=== PATIENT | female | born 1955 | race Caucasian/White ===

== ENCOUNTER → 2018-01-31 06:53 | Outpatient (CLI) | payer OTHER, SELFPAY ==
--- NOTE | 2018-01-31 06:59 | ECHOD_ITS ---
Reason For Study: CHEST PAIN Procedure This was a 2D Doppler, Color Flow transthoracic echocardiogram. The exam was of poor technical quality due to body habitus. The study was technically difficult. Contrast injection was performed. Exam performed in department. Left Ventricle Based upon the 2D echocardiographic and contrast enhanced images obtained there appears to be grossly normal left ventricular size, wall motion, and systolic function. The estimated ejection fraction is 60 %. Right Ventricle Normal RV size. Normal systolic function. Atria Normal left atrium. Normal right atrium. No doppler evidence for ASD. Mitral Valve There is no mitral annular calcification. The mitral valve chordae are thickened and/or calcified. Trivial mitral valve insufficiency. Tricuspid Valve Normal tricuspid valve. Trivial tricuspid valve insufficiency. Right ventricular systolic pressure estimated to be 49 mmHg. Aortic Valve The aortic valve is not well visualized. Pulmonic Valve The pulmonic valve is not well visualized. Great Vessels Normal sized aortic root. Pericardium/Pleural No pericardial effusion. Medication Diluted definity 3ml given slow IV push to enhance endocardial definition. MMode/2D Measurements & Calculations LVIDd: 4.5 cm IVSd: 0.84 cm Ao root diam: 2.8 cm LVIDs: 3.1 cm LVPWd: 1.1 cm FS: 32.1 % LAV(MOD-bp): 44.6 ml EDV(MOD-sp4): 110.2 ml EDV(MOD-sp2): 78.1 ml LAV(MOD-bp) Indexed: 21.1 ml/m2 ESV(MOD-sp4): 36.8 ml EF(MOD-sp2): 55.9 % LAV(MOD-sp2): 58.6 ml EF(MOD-sp4): 66.6 % LAV(MOD-sp4): 34.1 ml SV(MOD-sp4): 73.4 ml SV(MOD-sp2): 43.7 ml LA A4 area: 15.2 cm2 RA A4 area: 14.9 cm2 Doppler Measurements & Calculations MV E max alejo: 87.3 cm/sec Lat Peak E' Alejo: 9.0 cm/sec Med Peak E' Alejo: 7.2 cm/sec MV A max alejo: 100.5 cm/sec E/E' lat: 9.7 E/E' med: 12.2 MV E/A: 0.87 Ao V2 max: 141.3 cm/sec LV V1 max: 111.7 cm/sec PA V2 max: 80.7 cm/sec Ao max P.0 mmHg LV V1 max P.0 mmHg TR max alejo: 338.3 cm/sec TR max P.8 mmHg Interpretation Summary The study was technically difficult. Contrast injection was performed. Based upon the 2D echocardiographic and contrast enhanced images obtained there appears to be grossly normal left ventricular size, wall motion, and systolic function. The estimated ejection fraction is 60 %. The mitral valve chordae are thickened and/or calcified. Trivial mitral valve insufficiency. Trivial tricuspid valve insufficiency. Right ventricular systolic pressure estimated to be 49 mmHg. Diastolic function: considered indeterminate. Ordering Physician: Rosaura Carnes Referring Physician: Rosaura Carnes Performed By: Rosey Jonas, SUZANNA, RVT
--- NOTE | 2018-01-31 14:11 | STRESSREP_ITS ---
Stress Test Report Date: 2017 Procedure: Pharmacologic stress nuclear imaging study Indications: Chest pain Consent: Per the patient Procedure: The patient underwent pharmacologic (Regadenoson) evaluation with a peak heart rate of 100 beats per minute (64 predicted maximal heart rate) and a peak blood pressure of 138/74 mmHg. The baseline ECG demonstrated normal sinus rhythm. The peak pharmacologic ECG demonstrated no obvious ECG changes. Were occasional PACs during recovery. There was no complaint of chest discomfort during pharmacologic infusion or recovery. The examination was discontinued secondary to completion of protocol. Impression: 1. Pharmacologic (Regadenoson) evaluation 2. Peak pharmacologic ECG with no obvious ECG changes. 3. There were occasional PACs during recovery 4. Nuclear images pending Myocardial perfusion imaging study: Technique: The patient was injected with 14.7 millicuries of technetium 99m Cardiolite and subsequently rest SPECT Cardiolite nuclear imaging was obtained in the horizontal long, vertical long, and short axis views. The patient underwent pharmacologic (Regadenoson) evaluation with a peak heart rate of 100 beats per minute (64 % percent predicted maximal heart rate) and a peak blood pressure of 138/74 mmHg. The patient was injected with 44.9 millicuries of technetium 99m Cardiolite and subsequently stress SPECT Cardiolite nuclear imaging was obtained in the horizontal long, vertical long, and short axis views. A gated Cardiolite study at peak stress was obtained. Interpretation: Rest and stress SPECT Cardiolite nuclear imaging status post realignment, normalization, and attenuation correction demonstrate at rest the appearance of diminished tracer uptake in portions of the anterior, anteroseptal, and anterolateral segments which appear to improve and/or normalize following stress. There is end systolic thickening and brightening. The gated Cardiolite study demonstrates myocardial thickening and inward wall motion. The reported LVEF is 46 %. Impression: 1. Rest and stress SPECT Cardiolite nuclear imaging demonstrating resting myocardial perfusion changes which appear to improve and/or normalize following stress appearing compatible with shifting soft tissue attenuation/artifact with no myocardial perfusion changes consider diagnostic for associated stress- induced myocardial ischemia or previous myocardial injury/infarction. 2. The gated Cardiolite study reports an LVEF of 46 %. This note was generated with [employer] software. It may contain incorrect words, spelling, and punctuation that were not noted in checking the note before signing.
== END ==
LOC: CVS 06:53
PROVIDERS: Family Provider Internal Medicine; PCP Internal Medicine; Visit Provider Internal Medicine
DX: R07.9 Chest pain, unspecified (principal)
CPT/HCPCS: 78452; 93017; 93306; A9500; Q9957; A4216; C8929; J2785

== ENCOUNTER → 2018-09-20 08:32 | Outpatient (CLI) | payer MEDICARE, BC, SELFPAY ==
--- NOTE | 2018-09-20 08:42 | RAD_ITS ---
STUDY: X-RAY CHEST REASON FOR EXAM: Female, 63 years old. Shortness of breath. TECHNIQUE: Frontal and lateral views of the chest. COMPARISON: None. FINDINGS: There is an area of platelike atelectasis overlying the left upper lobe. Otherwise, the are clear and expanded. There is no demonstrated pleural abnormality. Normal size heart. Normal mediastinum and gila. Normal visualized pulmonary arteries. Normal visualized aortic arch and descending thoracic aorta. There are diffuse degenerative changes of the visualized thoracic spine. Normal visualized ribs, clavicles, and shoulders. There is no demonstrated abnormality of the visualized soft tissue structures of the upper abdomen. RAD/Chest PA and Lateral IMPRESSION: Focus of platelike atelectasis in the left upper lobe. No evidence for acute cardiopulmonary pathology. Electronically Signed: Dwight Dawkins MD at 0:45 EST , Service support ,
--- NOTE | 2018-09-20 09:02 | US_ITS ---
STUDY: THYROID ULTRASOUND REASON FOR EXAM: Female, 63 years old. Previous thyroidectomy, physician concerned only partial thyroidectomy performed. TECHNIQUE: Ultrasound evaluation of the thyroid was performed with real-time and static mackay-scale imaging. COMPARISON: None. FINDINGS: Patient reports previous thyroidectomy in 2006. There is no sonographic evidence of residual thyroid tissue in either half of the neck. No adenopathy, soft tissue mass or fluid collection. US/Thyroid IMPRESSION: No suspicious sonographic findings, no sonographic evidence of residual thyroid tissue Electronically Signed: Cornell Vizcarra MD at 16:47 EST , Service support ,
== END ==
PROVIDERS: Family Provider Internal Medicine; PCP Internal Medicine; Referring Provider Internal Medicine; Visit Provider Internal Medicine
DX: I27.20 Pulmonary hypertension, unspecified (principal); E04.1 Nontoxic single thyroid nodule; R06.09 Other forms of dyspnea
CPT/HCPCS: 71046; 76536

== ENCOUNTER → 2020-08-19 09:58 | Outpatient (CLI) | payer MEDICARE, BC, SELFPAY ==
--- NOTE | 2020-08-19 10:00 | BI_ITS ---
MAMMOGRAPHY - BILATERAL SCREENING REASON FOR EXAM: Female, 64 years old. Routine annual screening examination. PERTINENT HISTORY: Non-contributory. TECHNIQUE: Digital bilateral breast dina (3D mammographic acquisition) in the CC and MLO projections. 2-D mediolateral oblique (MLO) and craniocaudad (CC) views of both breasts were obtained. CAD: Full Field Digital Mammography with Computer Added Detection was performed. COMPARISON: None. Baseline examination. FINDINGS: Breast Composition: The breasts are heterogeneously dense, which may obscure small masses. There are no dominant masses or suspicious calcifications. Benign appearing bilateral axillary lymph nodes. No other significant abnormalities are identified. BI/SCREEN MAMM (CAD) W/DINA BILAT IMPRESSION: Negative screening mammogram. Yearly followup mammogram recommended. (A) ASSESSMENT CATEGORY: BIRADS Category 2: Benign. A letter regarding these results will be sent to the patient by the facility within 30 days. Approximately 10% of breast cancers are not detected by mammography. A normal mammogram should not delay biopsy of a clinically suspicious abnormality. [id number] Electronically Signed: Arnold Hernandez, at 11:59 EST , Service support ,
== END ==
PROVIDERS: PCP Internal Medicine; Referring Provider Internal Medicine; Visit Provider Internal Medicine
DX: Z12.31 Encounter for screening mammogram for malignant neoplasm of breast (principal)
CPT/HCPCS: 77063; 77067

== ENCOUNTER → 2021-05-19 14:16 | Outpatient (CLI) | payer MEDICARE, BC, SELFPAY ==
--- NOTE | 2021-05-19 14:20 | VDLE_ITS ---
Reason For Study: Calf pain Procedure LEFT This is a venous duplex using B-mode, color GSV is normal. flow and spectral Doppler. CFV is compressible, spontaneous, phasic, Exam performed in department. competent, and demonstrates normal A preliminary report was called and/or faxed augmentation. to [facility]. FV is compressible, spontaneous, phasic, competent and demonstrates normal augmentation. POP V is compressible, spontaneous, phasic, competent and demonstrates normal augmentation. T/P Trunk is compressible. PTV is compressible. LT PerV is compressible. VL/Venous Duplex US, Unilateral Interpretation Summary Deep veins of the left lower extremity are patent and compressible segmentally. There is no evidence of left lower extremity deep vein thrombosis. Valvular competence appears intac t within the proximal deep venous system on the left . The left great saphenous vein appears patent a nd compressible segmentally. Ordering Physician: Manuela Kapoor Referring Physician: Rosaura Carnes M.D. Performed By: Ca Hopper RVT
--- NOTE | 2021-05-19 14:40 | RAD_ITS ---
INDICATION: KNEE PAIN,L EXAMINATION/TECHNIQUE: X-RAY - LEFT XR Knee Complete 4 Views or More 4 VIEWS COMPARISON: 06/04/2011.. FINDINGS: Moderate narrowing of the joint spaces is visualized. Mild degenerative bone changes are seen, no evidence of cortical irregularity or lucency to suggest a fracture, no evidence of lytic or sclerotic bone lesion is seen. No evidence of subluxation or dislocation. Unremarkable alignment of the patella bone within the trochlear sulcus. Ratio of patellar tendon/patellar length is 1.16 which is within normal limits. No evidence of suprapatellar effusion, no abnormal density in the overlying soft tissues. No radiopaque foreign body seen. RAD/Knee 4 or More Views IMPRESSION: Degenerative changes, no acute osseous abnormality is seen Electronically Signed: Alvin Lea MD at 8:33 EDT Tel , Service support ,
== END ==
PROVIDERS: PCP Internal Medicine; Referring Provider Nurse Practitioner; Visit Provider Nurse Practitioner
DX: M79.89 Other specified soft tissue disorders (principal); M79.669 Pain in unspecified lower leg
CPT/HCPCS: 73564; 93971

== ENCOUNTER 2021-10-29 07:49 | Outpatient (CLI) | payer MEDICARE, BC, SELFPAY ==
--- NOTE | 2021-10-29 13:17 | PFTCOMP_ITS ---
COMPLETE PULMONARY FUNCTION TEST INTERPRETATION Brief HPI: Patient is a 66 year old female, currently under the care of Dr. Carnes, who presents to [facility] for complete pulmonary function tests secondary to diagnosis of dyspnea. Respiratory therapist reports good effort and reproducible results. Interpretation: Forced expiration spirometry shows no large airways obstructive ventilatory defect with an FEV1 of 40% predicted. There is no significant bronchodilator response by strict ATS criteria. Spirograms are of good quality and plateau normally. The respiratory flow volume loop shows a normal pattern. Lung volumes by body plethysmography show a decreased total lung capacity at 2.43 L, 57% predicted. FRC and RV are elevated out of proportion. Lung volume measurements are consistent with air-trapping. Diffusion capacity by carbon monoxide is decreased at 49% predicted. The airway resistance is elevated. No previous pulmonary function tests were available for review. Impression: Predominantly severe restrictive ventilatory defect with some stigmata of small airways disease and a symmetric reduction in diffusion capacity
== END 2021-10-29 23:59 | disposition home or self-care (01) ==
LOC: PSN 07:51
PROVIDERS: PCP Internal Medicine; Referring Provider Internal Medicine; Visit Provider Internal Medicine
DX: R06.02 Shortness of breath (principal)
CPT/HCPCS: 94060; 94726; 94729

== ENCOUNTER 2021-10-30 08:18 | Outpatient (CLI) | payer MEDICARE, BC, SELFPAY ==
--- NOTE | 2021-10-30 08:40 | RAD_ITS ---
STUDY: X-RAY CHEST REASON FOR EXAM: Female, 66 years old. SOB TECHNIQUE: PA and lateral views of the chest. COMPARISON: 09/20/2018 FINDINGS: Opacification throughout the majority of the left lung consistent with left upper lobe atelectasis. There is no demonstrated pleural abnormality. Normal size heart. Enlarged hilum of the left lung worrisome for left hilar mass mainly bronchogenic carcinoma. Normal visualized pulmonary arteries. Normal visualized aortic arch and descending thoracic aorta. Normal visualized thoracic spine. Normal visualized ribs, clavicles, and shoulders. There is no demonstrated abnormality of the visualized soft tissue structures of the upper abdomen. RAD/Chest PA and Lateral IMPRESSION: Suspect left hilar bronchial carcinoma with lingular postobstructive atelectasis. Correlation with CT of the chest with contrast is recommended. Electronically Signed: Mark Cutler MD at 9:00 EDT ,
== END 2021-10-30 23:59 | disposition home or self-care (01) ==
PROVIDERS: PCP Internal Medicine; Referring Provider Internal Medicine; Visit Provider Internal Medicine
DX: R06.02 Shortness of breath (principal)
CPT/HCPCS: 71046

== ENCOUNTER 2021-11-06 09:28 | Inpatient (IN) | payer MEDICARE, BC, SELFPAY ==
[2021-11-06] VITALS (11 sets, daily range): BP systolic 121–147; BP diastolic 46–85; PULSE 87–101; RESP 16–26; TEMP 35.6–36.8; O2SAT 77–95; BMI 43.6; BMI 45.8
--- NOTE | 2021-11-06 10:13 | EKG12_ITS ---
Test Reason : TACHYCARDIA Blood Pressure : / mmHG Vent. Rate : 096 BPM Atrial Rate : 096 BPM P-R Int : 168 ms QRS Dur : 074 ms QT Int : 362 ms P-R-T Axes : 068 088 066 degrees QTc Int : 457 ms Normal sinus rhythm Normal ECG Confirmed by REENA RAY, URSULA ([id number]), general expeditor PAULO MCINTOSH ([id number]) on 11/10/2021 11:00:47 AM Referred By: CLARKE Confirmed By:URSULA VALLES MD
--- NOTE | 2021-11-06 10:13 | CT_ITS ---
STUDY: CTA CHEST REASON FOR EXAM: Female, 66 years old. Chest pain. Possible left hilar mass and volume loss in the left hemithorax as compared to prior chest radiograph dated 10/30/2021. RADIATION DOSAGE (If Supplied By Facility): CTDIvol = ( 12.65 ) mGy, DLP = ( 538.50 ) mGycm TECHNIQUE: The examination was performed with the intravenous administration of IV 100mL Isovue-[id number]. Post-processing of the angiographic images was performed, with multiplanar reformation and 3D reconstruction. Individualized dose optimization techniques were used for this CT. COMPARISON: None. FINDINGS: Normal enhancement of the main pulmonary artery and right and left pulmonary arteries. Normal enhancement of the bilateral peripheral pulmonary arteries. There is no demonstrated pulmonary embolism. There is atherosclerotic calcification of the aortic arch with tortuosity. There is no demonstrated aortic dissection. There are calcifications of the coronary arteries. Normal mediastinum. 3.8 cm soft tissue mass in the left hilum. Normal visualized trachea and bronchi. There is collapse of the left upper lobe. There is evidence of a left hilar mass with narrowing of the left upper lobe bronchus with postobstructive pneumonitis in the left upper lobe. Small left pleural effusion. Normal chest wall structures. There are degenerative changes of thoracic spine. There is a 3.3 cm x 3.1 cm hypodense mass in the right adrenal gland. 1.2 cm nodule in the crux of the left adrenal gland. CT/CTA Chest W/WO Contrast IMPRESSION: Left hilar mass with collapse of the left upper lobe. A primary bronchogenic carcinoma should be ruled out. Small left pleural effusion. Bilateral adrenal masses more prominent on the right side. Electronically Signed: Arnold Hernandez MD at 13:01 EDT ,
--- NOTE | 2021-11-06 10:16 | EDS_ITS ---
HPI History of Present Illness Chief Complaint: Shortness of Breath Narrative Narrative: 66-year-old female presenting with shortness of breath. She is found to be hypoxic in the 70s on arrival. She is placed on 2 L via nasal cannula. She states that she is been feeling this short of breath for about a week or 2. She does have a little bit of a cough. No fever or chills. Patient states he has a history of smoking but has not smoked since this started. She does describe some sharp retrosternal chest pain that sometimes radiates to the back. No history of DVT/PE. PE Risk Factors: Negative for Cancer, Prior DVT or PE, Recent immobilization, Recent surgery and Recent travel [facility] Medical History (Updated 11/06/21 @ 13:[address] 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 Tobacco abuse Type II diabetes mellitus Home Medications albuterol sulfate 90 mcg/actuation aerosol inhaler 2 puff INHALATION Q4H PRN 04/06/18 [History Last Taken 11/05/21] aspirin 81 mg tablet,delayed release 81 mg PO DAILY 04/06/18 [History Last Taken 11/05/21] atorvastatin 80 mg tablet 80 mg PO DAILY 04/06/18 [History Last Taken 11/05/21] escitalopram oxalate 20 mg tablet 20 mg PO DAILY 04/06/18 [History Last Taken 11/05/21] fluticasone propionate 50 mcg/actuation nasal spray,suspension 1 spray INTRAN KEY DAILY 04/06/18 [History Last Taken 11/05/21] glimepiride 4 mg tablet 4 mg PO QAM 04/06/18 [History Last Taken 11/05/21] levothyroxine 175 mcg tablet 175 mcg PO SUMOTUWETHFR 04/06/18 [History Last Taken 11/05/21] oxybutynin chloride 15 mg tablet,extended release 24 hr 15 mg PO DAILY 04/06/18 [History Last Taken 11/05/21] lisinopril 10 mg-hydrochlorothiazide 12.5 mg tablet 1 tab PO BID tab 04/13/18 [History Last Taken 11/05/21] levothyroxine 350 mcg PO SA 11/06/21 [History Last Taken 10/31/21] metformin 500 mg PO DAILY 11/06/21 [History Last Taken 11/05/21] Allergy/AdvReac Type Severity Reaction Status Date / Time loratadine [From Claritin] AdvReac Severe Nausea Verified 11/06/21 09:29 acetaminophen AdvReac Unknown Unknown Verified 11/06/21 09:29 [From Darvocet-N 100] celecoxib [From Celebrex] AdvReac Unknown Unknown Verified 11/06/21 09:29 meperidine [From Demerol] AdvReac Unknown Unknown Verified 11/06/21 09:29 morphine AdvReac Unknown Unknown Verified 11/06/21 09:29 Penicillins AdvReac Unknown Unknown Verified 11/06/21 09:29 propoxyphene AdvReac Unknown Unknown Verified 11/06/21 09:29 [From Darvocet-N 100] Family History Father Heart disease Sister Heart disease Surgical History History of cholecystectomy History of splenectomy History of thyroidectomy, total History of total hysterectomy Hx of appendectomy Social History Smoking Status: Current every day smoker tobacco type: cigarettes alcohol intake: current details: rare substance use type: does not use ROS ROS ED Constitutional Constitutional ED: Denies chills or fever(s) Eyes Eyes: Denies blurry vision or change in vision ENT ENT ED: Denies rhinorrhea or sore throat Cardiovascular Cardiovascular: Reports chest pain, palpitations and racing heartbeat Respiratory/Chest Respiratory/Chest: Reports cough, dyspnea and dyspnea on exertion Gastrointestinal Gastrointestinal: Denies abdominal pain, nausea or vomiting Genitourinary Genitourinary ED: Denies dysuria or hematuria Musculoskeletal Musculoskeletal: Denies arthralgias or myalgias Integumentary Denies rash Neurologic Neurologic: Denies headache(s) or paresthesias Psychiatric Psychiatric: Denies anxiety or depression EXAM Physical Exam Const Vital Signs: 11/06/21 09:32 11/06/21 09:36 11/06/21 10:13 Temperature 96.1 F L Temperature Source Temporal Pulse Rate 101 H Respiratory Rate 26 H Respiratory Effort Respiratory Depth Respiratory Pattern Blood Pressure 147/85 H Blood Pressure Mean 105 Pulse Ox 77 91 92 Oxygen Delivery Method Room Air Nasal Cannula Nasal Cannula Oxygen Flow Rate (L/min) 3 3 11/06/21 10:28 11/06/21 10:36 11/06/21 11:46 Temperature 98.0 F Temperature Source Oral Pulse Rate 87 89 Respiratory Rate 22 H 22 H Respiratory Effort Normal Non-Labored Respiratory Depth Normal Respiratory Pattern Normal Normal Blood Pressure 131/61 H Blood Pressure Mean 84 Pulse Ox 92 Oxygen Delivery Method Nasal Cannula Nasal Cannula Oxygen Flow Rate (L/min) 3 3 11/06/21 13:00 Temperature 98.0 F Temperature Source Oral Pulse Rate 88 Respiratory Rate 24 H Respiratory Effort Respiratory Depth Respiratory Pattern Blood Pressure 121/46 H Blood Pressure Mean 71 Pulse Ox 93 Oxygen Delivery Method Nasal Cannula Oxygen Flow Rate (L/min) 4 Positive obese General Appearance ED: NAD; Negative for pallor Nutritional Appearance: obese HEENT Reports moist mucous membranes atraumatic Eyes PERRL and EOMs intact bilaterally General Eye ED: Negative for pale conjunctiva or scleral icterus Neck no lymphadenopathy and supple Resp Auscultation: wheezes expiratory wheezes Cardio regular rhythm Rate: tachycardic GI non-tender and non-distended Palpation: soft Back/Spine normal to inspection Extremity normal to inspection Neuro oriented x3 and CN's II-XII intact bilaterally Sensorium / Orientation: alert Motor Exam: strength 5/5 throughout and general weakness Psych mental status grossly normal Thought Process: normal thought process Skin General Skin Exam: Negative for jaundice or pallor MDM MDM MDM Narrative Medical decision making narrative: Patient seen and evaluated on arrival. She is hypoxic at 77 and placed on 2 L via nasal cannula. She is currently 91 to 93% on room air. She feels improved. Patient does not usually have to wear home O2. She is wheezing mildly but also complaining of sharp chest pain that radiates to the back at times. EKG obtained. Shows a normal sinus rhythm with a ventricular rate of 96 bpm without sign of ischemic change. On my interpretation. I reviewed her chest x-ray that she had last week which had concerns for carcinoma, and specifically left hilar bronchial carcinoma with lingular postobstructive atelectasis. Given this I will obtain a CTA. Blood work obtained and shows a leukocytosis of 15.8. Patient does appear to always have a high white blood cell count. Hemoglobin and hematocrit are stable. Renal function electrolytes within normal limits. BNP normal at 20. High- sensitivity troponin is 4. CTA of the chest was obtained and shows a left hilar mass with collapse of the left upper lobe. There are drain masses bilaterally as well as a left pleural effusion. Given the patient is hypoxic and requiring oxygen she will need to be admitted to the hospital. Discussed with the hospitalist for admission. Patient transported to the medical floor in stable condition. Impression: 1. Hypoxic respiratory failure 2. Chest pain 3. Lung mass 4. Left pleural effusion 5. Adrenal masses bilaterally Lab Data Attestation: I reviewed the patient's lab results. Labs: Laboratory Results - last 24 hr 11/06/21 11/06/21 11/06/21 11:20 11:20 11:20 WBC 15.8 H RBC 5.40 Hgb 15.7 H Hct 48.2 H MCV 89.3 MCH 29.1 MCHC 32.6 RDW Std Deviation 58.2 H RDW Coeff of Kathy 18.4 H Plt Count 361 MPV 10.1 Immature Gran % (Auto) 0.400 Neut % (Auto) 58.0 Lymph % (Auto) 28.5 [place] % (Auto) 11.4 H Eos % (Auto) 0.9 Baso % (Auto) 0.8 Absolute Neuts (auto) 9.2 H Absolute Lymphs (auto) 4.51 Nucleated RBC % 0 Platelet Estimate ADEQUATE RBC Morphology NORM C+C Sodium 139 Potassium 4.4 Chloride 103 Carbon Dioxide 35.0 H Anion Gap 1 L BUN 13 Creatinine 0.52 L Estim Creat Clear Calc 38.68 Est GFR (MDRD) Af Amer 149 Est GFR (MDRD) Non-Af 124 BUN/Creatinine Ratio 24.8 H Glucose 130 H Calcium 8.7 Troponin I High Sens 6 B-Natriuretic Peptide 20.7 11/06/21 12:40 WBC RBC Hgb Hct MCV MCH MCHC RDW Std Deviation RDW Coeff of Kathy Plt Count MPV Immature Gran % (Auto) Neut % (Auto) Lymph % (Auto) [place] % (Auto) Eos % (Auto) Baso % (Auto) Absolute Neuts (auto) Absolute Lymphs (auto) Nucleated RBC % Platelet Estimate RBC Morphology Sodium Potassium Chloride Carbon Dioxide Anion Gap BUN Creatinine Estim Creat Clear Calc Est GFR (MDRD) Af Amer Est GFR (MDRD) Non-Af BUN/Creatinine Ratio Glucose Calcium Troponin I High Sens 4 B-Natriuretic Peptide Radiography Diagnostic Testing: Clinical Impression(s) from Imaging Studies Chest CTA 11/06/21 10:13 IMPRESSION: Left hilar mass with collapse of the left upper lobe. A primary bronchogenic carcinoma should be ruled out. Small left pleural effusion. Bilateral adrenal masses more prominent on the right side. Electronically Signed: Arnold Hernandez MD at 13:01 EDT , Discharge Plan Triage Chief Complaint: Shortness of Breath ED Provider: William Lepe Dx/Rx/DC Orders Prescriptions: No Action lisinopril-hydrochlorothiazide 10-12.5 mg tablet 1 tab PO BID RF: 0 glimepiride [Amaryl] 4 mg tablet 4 mg PO QAM RF: 0 fluticasone propionate [Allergy Relief (fluticasone)] 50 mcg/actuation spray,suspension 1 spray INTRANASAL DAILY RF: 0 escitalopram oxalate [Lexapro] 20 mg tablet 20 mg PO DAILY RF: 0 levothyroxine 175 mcg tablet 175 mcg PO SUMOTUWETHFR RF: 0 oxybutynin chloride 15 mg tablet extended release 24hr 15 mg PO DAILY RF: 0 atorvastatin 80 mg tablet 80 mg PO DAILY RF: 0 aspirin 81 mg tablet,delayed release (DR/EC) 81 mg PO DAILY RF: 0 albuterol sulfate [Proventil HFA] 90 mcg/actuation HFA aerosol inhaler 2 puff INHALATION Q4H PRN (Reason: SOB) RF: 0 metformin 500 mg tablet 500 mg PO DAILY RF: 0 levothyroxine 175 mcg tablet 350 mcg PO SA RF: 0 Primary Care Provider: Rosaura Carnes
[2021-11-06] MEDS: Ipratropium/Albuterol Sulfate 3 ML AMPUL.NEB INHALATION (10:27)
[2021-11-06] MEDS: Albuterol 2.5 MG/3 ML VIAL.NEB. INHALATION (10:28)
[2021-11-06 11:36] LABS: Absolute Lymphocyte Count 4.51 X10^3/uL (0.83-4.51); Absolute Neutrophil Count 9.2 X10^3/uL (2.0-7.7); Basophil# 0.12 X10^3/uL; Basophil% 0.8 % (0-1); Eosinophil# 0.14 X10^3/uL; Eosinophils% 0.9 % (0-5); Hematocrit 48.2 % (37-47); Hemoglobin 15.7 g/dL (12.0-15.0); Lymphocyte # 4.51 X10^3/ul (0.83-4.51); Lymphocyte % 28.5 % (19-41); Mean Corp Hgb Conc 32.6 g/dL (32-36); Mean Corpuscular Hgb 29.1 pg (27.0-32.0); Mean Corpuscular Volume 89.3 fL (81-99); Mean Platelet Vol. 10.1 fl (6.2-12.0); Monocyte# 1.81 X10^3/uL; Monocyte% 11.4 % (0-10); NRBC Flagged by Analyzer 0 % (0-5); Neutrophil # 9.17 X10^3/uL (2.7-7.7); POSITIVE DIFFERENTIAL YES; Platelet Count 361 K/mm3 (150-450); RBC Distribution Width CV 18.4 % (11.6-14.6); RBC Distribution Width SD 58.2 fl (35.1-43.9); White Blood Count 15.8 K/mm3 (4.4-11.0)
[2021-11-06 11:37] LABS: Differential Indicated SCAN CRITERIA MET
[2021-11-06] MEDS: MethylPREDNISolone 125 MG/2 ML Vial IV (11:46)
[2021-11-06 11:53] LABS: Anion Gap 1 (5-15); BUN 13 mg/dL (7-18); BUN/Creat Ratio 24.8 RATIO (10-20); Calcium,Total 8.7 mg/dL (8.5-10.1); Chloride 103 mmol/L (98-107); Creatinine, Serum 0.52 mg/dL (0.55-1.02); EST Glomerular Filtration Rate 124 mL/min (>60); Est Glom Filt Rate - Afr Amer 149 mL/min (>60); Estimated Creatinine Clearance 38.68 ml/min; Glucose 130 mg/dL (74-106); Potassium 4.4 mmol/L (3.5-5.1); Sodium Level 139 mmol/L (136-145); Troponin-I HS 6 pg/mL (3.0-54.0)
[2021-11-06 11:54] LABS: Platelet Estimate ADEQUATE (ADEQ); Red Cell Morphology NORM C+C NORMAL (NORM C&C)
[2021-11-06 12:16] LABS: BNP,B-Type NATRIURETIC PEPTIDE 20.7 pg/mL (0-100)
[2021-11-06 13:04] LABS: Troponin-I HS 4 pg/mL (3.0-54.0)
--- NOTE | 2021-11-06 13:32 | HP.PCM.HOS_ITS ---
HPI - General General Date of Admission: 11/06/21 HPI Narrative YING AGUILAR, is a 66 F with a PMH as outlined who presents via the ED on 11/06/2021 with a complaint of shortness of breath which had been going on for ~ 1-2 weeks. She was found to be hypoxic in the 70s by the EMS. She had chest pain which was sharp and radiated to her back. She denied any recent travels or immobilisation or history of PE; she had a cxr done 1 week ago which showed a right hilar mass. Review of systems is otherwise negative. VItals in the ED were BP of 121/46, NH of 88, RR of 24 and temp of 98F. She was saturating at 93% on 2L of oxygen. CBC showed Hb of 15.7, wbc of 15.8, platelets of 361. BMP was largely unremarkable. CTA of the chest showed left hilar mass with collapse of hte left upper lobe, with small left pleural effusion concerning for primary bronchogenic carcinoma; bilateral adrenal masses were also more prominent on the right side. She is being admitted to be managed for acute hypoxic respiratory failure due to probable lung cancer. [facility] Medical History (Updated 11/06/21 @ 14:23 by Zoie Vieira) Abnormal echocardiogram Benign essential hypertension Cardiac murmur Chronic osteoarthritis CVA (cerebral vascular accident) Fibromyalgia History of asthma Hyperlipidemia Hypothyroidism Kidney stones Leukemia in remission Nontoxic uninodular goiter Sleep apnea Smoker Tobacco abuse Type II diabetes mellitus Home Medications albuterol sulfate 90 mcg/actuation aerosol inhaler 2 puff INHALATION Q4H PRN 04/06/18 [History Last Taken 11/05/21] aspirin 81 mg tablet,delayed release 81 mg PO DAILY 04/06/18 [History Last Taken 11/05/21] atorvastatin 80 mg tablet 80 mg PO DAILY 04/06/18 [History Last Taken 11/05/21] escitalopram oxalate 20 mg tablet 20 mg PO DAILY 04/06/18 [History Last Taken 11/05/21] fluticasone propionate 50 mcg/actuation nasal spray,suspension 1 spray I NTRANASAL DAILY 04/06/18 [History Last Taken 11/05/21] glimepiride 4 mg tablet 4 mg PO QAM 04/06/18 [History Last Taken 11/05/21] levothyroxine 175 mcg tablet 175 mcg PO SUMOTUWETHFR 04/06/18 [History Last Taken 11/05/21] oxybutynin chloride 15 mg tablet,extended release 24 hr 15 mg PO DAILY 04/06/18 [History Last Taken 11/05/21] lisinopril 10 mg-hydrochlorothiazide 12.5 mg tablet 1 tab PO BID tab 04/13/18 [History Last Taken 11/05/21] levothyroxine 350 mcg PO SA 11/06/21 [History Last Taken 10/31/21] metformin 500 mg PO DAILY 11/06/21 [History Last Taken 11/05/21] Allergy/AdvReac Type Severity Reaction Status Date / Time loratadine [From Claritin] AdvReac Severe Nausea Verified 11/06/21 09:29 acetaminophen AdvReac Unknown Unknown Verified 11/06/21 09:29 [From Darvocet-N 100] celecoxib [From Celebrex] AdvReac Unknown Unknown Verified 11/06/21 09:29 meperidine [From Demerol] AdvReac Unknown Unknown Verified 11/06/21 09:29 morphine AdvReac Unknown Unknown Verified 11/06/21 09:29 Penicillins AdvReac Unknown Unknown Verified 11/06/21 09:29 propoxyphene AdvReac Unknown Unknown Verified 11/06/21 09:29 [From Darvocet-N 100] Family History Father Heart disease Sister Heart disease Surgical History History of cholecystectomy History of splenectomy History of thyroidectomy, total History of total hysterectomy Hx of appendectomy Social History Smoking Status: Current every day smoker tobacco type: cigarettes alcohol intake: current details: rare substance use type: does not use ROS Constitutional Constitutional: Denies anorexia, chills, fatigue, fever(s), malaise or weakness Eyes Eyes: Denies change in vision ENT HEENT: Denies dysphagia, headache(s), nasal congestion or nasal discharge Cardiovascular Cardiovascular: Reports dyspnea on exertion; Denies chest pain, edema, lightheadedness, orthopnea, palpitations, paroxysmal nocturnal dyspnea or rapid heart rate Respiratory/Chest Respiratory/Chest: Reports dyspnea, shortness of breath at rest and shortness of breath with exertion; Denies cough, excessive phlegm production, hemoptysis, productive cough or wheezing Gastrointestinal Gastrointestinal: Denies abdominal pain, dyspepsia, nausea or vomiting Genitourinary Genitourinary: Denies burning urination, dysuria or urinary frequency Musculoskeletal Musculoskeletal: Denies arthralgias, joint pain or joint swelling Neurologic Neurologic: Denies confusion, dizziness, focal weakness, headache(s) or numbness Psychiatric Psychiatric: Denies anxiety or depression Endocrine Endocrinology: Denies change in body appearance Hematologic/Lymphatic Hematologic/Lymphatic: Denies anemia Vital Signs Vital Signs Vital Signs: 11/06/21 09:32 11/06/21 09:36 11/06/21 10:13 Temperature 96.1 F L Temperature Source Temporal Pulse Rate 101 H Respiratory Rate 26 H Respiratory Effort Respiratory Depth Respiratory Pattern Blood Pressure 147/85 H Blood Pressure Mean 105 Pulse Ox 77 91 92 Oxygen Delivery Method Room Air Nasal Cannula Nasal Cannula Oxygen Flow Rate (L/min) 3 3 11/06/21 10:28 11/06/21 10:36 11/06/21 11:46 Temperature 98.0 F Temperature Source Oral Pulse Rate 87 89 Respiratory Rate 22 H 22 H Respiratory Effort Normal Non-Labored Respiratory Depth Normal Respiratory Pattern Normal Normal Blood Pressure 131/61 H Blood Pressure Mean 84 Pulse Ox 92 Oxygen Delivery Method Nasal Cannula Nasal Cannula Oxygen Flow Rate (L/min) 3 3 11/06/21 13:00 Temperature 98.0 F Temperature Source Oral Pulse Rate 88 Respiratory Rate 24 H Respiratory Effort Respiratory Depth Respiratory Pattern Blood Pressure 121/46 H Blood Pressure Mean 71 Pulse Ox 93 Oxygen Delivery Method Nasal Cannula Oxygen Flow Rate (L/min) 4 Weight Weight: 223 lb 5.252 oz Body Mass Index (BMI) 43.6 Physical Exam Const alert, oriented x3 and no apparent distress General Appearance: cooperative HEENT normocephalic, head/scalp atraumatic and hearing grossly normal bilaterally Eyes PERRL, EOMs intact bilaterally and conjunctivae normal Neck no lymphadenopathy, supple and no JVD Resp Resp Narrative: mildly diminished breath sounds bibasally, no wheezes or crackles. On 4l of oxygen Cardio regular rate, regular rhythm, S1 normal heart sound, S2 normal heart sound and no murmurs GI normal to inspection, nondistended, normoactive bowel sounds, soft to palpation, non-tender and non-distended Extremity normal to inspection, full ROM and no clubbing, cyanosis or edema Peripheral Pulses: Yes pulses 2+ throughout Skin no rashes or lesions noted Neuro oriented x3 and CN's II-XII intact bilaterally Sensorium / Orientation: awake and alert Psych affect normal Results Lab / Micro Data Result Diagrams: 11/06/21 11:20 11/06/21 11:20 Labs: Laboratory Results - last 24 hr 11/06/21 11:20: WBC 15.8 H, RBC 5.40, Hgb 15.7 H, Hct 48.2 H, MCV 89.3, MCH 29.1, MCHC 32.6, RDW Std Deviation 58.2 H, RDW Coeff of Kathy 18.4 H, Plt Count 361, MPV 10.1, Immature Gran % (Auto) 0.400, Neut % (Auto) 58.0, Lymph % (Auto) 28.5, [place] % (Auto) 11.4 H, Eos % (Auto) 0.9, Baso % (Auto) 0.8, Absolute Neuts (auto) 9.2 H, Absolute Lymphs (auto) 4.51, Nucleated RBC % 0, Platelet Estimate ADEQUATE, RBC Morphology NORM C+C 11/06/21 11:20: Sodium 139, Potassium 4.4, Chloride 103, Carbon Dioxide 35.0 H, Anion Gap 1 L, BUN 13, Creatinine 0.52 L, Estim Creat Clear Calc 38.68, Est GFR (MDRD) Af Amer 149, Est GFR (MDRD) Non-Af 124, BUN/Creatinine Ratio 24.8 H, Glucose 130 H, Calcium 8.7, Troponin I High Sens 6 11/06/21 11:20: B-Natriuretic Peptide 20.7 11/06/21 12:40: Troponin I High Sens 4 Radiology Impression Chest CTA 11/06/21 10:13 IMPRESSION: Left hilar mass with collapse of the left upper lobe. A primary bronchogenic carcinoma should be ruled out. Small left pleural effusion. Bilateral adrenal masses more prominent on the right side. Electronically Signed: Arnold Hernandez MD at 13:01 EDT , Assessment & Plan Assessment/Plan (1) Acute respiratory failure with hypoxia: (2) Lung mass: PLAN: #Acute hypoxic respiratory failure due to newly diagnosed lung mass * admit to med surg with telemetry * CT of the chest showed left hilar mass with collapse of the left upper lobe and primary bronchogenic carcinoma as well as small left pleural effusion and bilateral adrenal masses more prominent in the right side * She does have a history of smoking; this is concerning for cancer. * consult pulmonology * put on IV levofloxacin for post obstructive pneumonitis * titrate oxygen to maintain sats >90% * breathing treatment with bronchodilators * #LUng mass with left upper lobe collapse: as above #Bilateral adrenal nodules * CT showed a 3.3 cm x 3.1 cm hypodense mass in the right adrenal gland with a 1.2 cm nodule in the crux of the left adrenal gland. * To follow-up on outpatient basis for further work-up as needed. * #Hypertension; on lisinopril/HCTZ #Hypothyroidism: on synthroid #Type 2 diabetes mellitus * on metformin. ISS. Accuchecks ACHS * #Hyperlipidemia: on statin #History of nicotine dependence: Patient states she smokes 1 pack a day but quit today. Counseled to quit. Nicotine patch 20 mg daily. DVT prophylaxis: lovenox COde status: Full code * Patient and son counseled extensively about different types of CODE STATUS including full code, DNR CCA and DNR CCA. Patient elects to be full code. * Total crvs-qu-atwo time 18 minutes. Charges/Coding Visit Charges Inpatient E&M: 54771 Init Hosp L3 Procedures Hospitalists Procedures: 08155 Advncd Care Plan 30 Min
[2021-11-06] MEDS: 0.9% Normal Saline 1,000 ML 75 ML IV (15:59)
--- NOTE | 2021-11-06 16:25 | CASEMGMT ---
RN CM BELL CLEANER CM to room to meet with patient for initial transition planning/care coordination assessment. DEBBIE JONES introduced self and role at [facility]. Pt voices understanding and consents to assessment at this time. Pt resting in bed in no distress at this time. Pt is A/O at this time and answers all questions appropriately. Care providers, pharmacy, and demographics verified/updated at this time. PCP: Dr Carnes Specialists:Dr Garcia-oncology Preferred Pharmacy: [facility] Retail Insurance: Dariel HALL Prescription Benefit: Yes Living Will/HPOA: Pt has LW and HPOA, who is her sister, Kimberly Monson. LNOK: Sister/POA, Kimberly. Son, Abelardo Living Arrangements: Lives in one-story home w/basement w/no steps to enter. Son lives in the basement. Pt states she is independent w/ADL's and IADL's. Son and his friends assist pt when needed. Transportation: Pt states drives self and states no transportation concerns at this time. DME: States has the following DME: cane, functioning glucometer w/supplies. Pt has a pulse ox, but states battery is . Pt states plans on just buying a new pulse ox, as the one she has currently is old. Pt states is able to afford a new one. Pt does not have home O2. Pt provided w/list of local DME companies, if she qualifies for O2 @ discharge. Pt states [employer]. Pt states no need for further DME at this time. HHC/SNF: Hx of either [facility] TCU or RU after CVA about 20 yrs ago and [facility] HHC after that. Denies need for HHC at this time. Pt wishes to return home and states has no concerns with going home at time of discharge. Pt states has smoked for about 50 yrs and smokes 1 PPD. Pt requesting something for my nerves, for my emotions, like Ativan or something. Pt states is also open to Nicotine patch. RNMakenna, made aware. CM to follow for home oxygen needs and any further discharge planning/needs. Pt voices no further concerns/needs at this time. Advised pt to ask for CM if any further questions/concerns/needs arise. Voices understanding. PLAN: Home w/discharge plans in place. Follow for possible home O2 needs @ discharge. Green sheet on chart w/instructions for Home O2 set-up, if she qualifies. Bety BSN RN CM
[2021-11-06] MEDS: Insulin Lispro 100 UNIT/ML INSULN.PEN SC ×2 (16:46→20:47)
[2021-11-06 16:51] LABS: Bedside Glucose 187 mg/dL (74-106)
[2021-11-06] MEDS: LORazepam 1 MG Tablet PO (17:34)
[2021-11-06] MEDS: levoFLOXacin IV 500 MG/100 ML BAG 100 MG IV (20:38)
[2021-11-06] MEDS: Atorvastatin Calcium 80 MG Tablet PO (20:48)
[2021-11-07 01:36] LABS: Bedside Glucose 286 mg/dL (74-106)
[2021-11-07 02:50] VITALS: BP 151/80; PULSE 72; RESP 16; TEMP 36.1; O2SAT 94
[2021-11-07 05:59] LABS: Absolute Neutrophil Count 7.3 X10^3/uL (2.0-7.7); Basophil# 0.05 X10^3/uL; Basophil% 0.4 % (0-1); Eosinophil# 0.01 X10^3/uL; Eosinophils% 0.1 % (0-5); Hematocrit 44.7 % (37-47); Hemoglobin 14.9 g/dL (12.0-15.0); Lymphocyte % 23.1 % (19-41); Mean Corp Hgb Conc 33.3 g/dL (32-36); Mean Corpuscular Volume 87.1 fL (81-99); Monocyte# 1.63 X10^3/uL; Monocyte% 13.9 % (0-10); NRBC Flagged by Analyzer 0 % (0-5); Neutrophil # 7.28 X10^3/uL (2.7-7.7); Neutrophil % 62.2 % (47-70); POSITIVE DIFFERENTIAL YES; Platelet Count 337 K/mm3 (150-450); RBC Distribution Width CV 17.5 % (11.6-14.6); RBC Distribution Width SD 54.4 fl (35.1-43.9); Red Blood Count 5.13 M/mm3 (4.2-5.4); White Blood Count 11.7 K/mm3 (4.4-11.0)
[2021-11-07 06:05] LABS: Differential Indicated SCAN CRITERIA MET
[2021-11-07 06:42] LABS: Differential Comment SCANNED; Reactive Lymphocyte 1+
[2021-11-07 06:43] LABS: Anion Gap 3 (5-15); BUN 13 mg/dL (7-18); BUN/Creat Ratio 32.6 RATIO (10-20); Chloride 105 mmol/L (98-107); EST Glomerular Filtration Rate 169 mL/min (>60); Est Glom Filt Rate - Afr Amer 205 mL/min (>60); Estimated Creatinine Clearance 38.68 ml/min; Glucose 128 mg/dL (74-106); Sodium Level 139 mmol/L (136-145)
[2021-11-07] MEDS: Levothyroxine 175 MCG Tablet 350 MCG PO (06:54)
[2021-11-07 07:11] LABS: Bedside Glucose 128 mg/dL (74-106)
--- NOTE | 2021-11-07 07:11 | EX.PCM.CONCC ---
Assessment & Plan Assessment/Plan (1) Lung mass: PLAN: RECOMMENDATIONS: 1. Wean supplemental oxygen to maintain saturations at or above 90%. 2. Continue antimicrobials to complete 7-day treatment course. 3. Continue nicotine replacement therapy. 4. Consider EBUS on outpatient basis to facilitate staging as well as diagnosis. 5. If the patient worsens clinically, conventional bronchoscopy can be considered with endobronchial biopsies. IMPRESSIONS: 1. Shortness of breath with associated hypoxemia Most likely secondary to left hilar lung mass compromising the left upper lobe bronchus, leading to distal airway collapse and postobstructive pneumonia. Recent PFTs demonstrated evidence of a severe restrictive impairment with symmetric reduction in diffusing capacity. Plan to continue to wean supplemental oxygen as tolerated to maintain saturations at or above 90%. Continue empiric antimicrobials, with plans to complete a 7-day treatment course. 2. Left hilar lung mass CT imaging revealed a sizable left hilar lung mass which appears to be compromising the left upper lobe bronchus leading to extrinsic compression and distal airway collapse. This is likely leading to the development of postobstructive pneumonia. Under normal circumstances, given that the patient did have radiographic evidence of subcarinal adenopathy, she would likely benefit most from having an EBUS procedure performed on an outpatient basis to both diagnose and facilitate staging of what is likely an underlying lung malignancy. If the patient were to worsen from a clinical perspective, conventional bronchoscopy could also be considered with endobronchial biopsies performed. However, we would not be able to stage the mediastinum with that procedure. I agree with continuing antibiotics for now to complete 7 days of therapy. 3. Chronic tobacco dependency I personally spent 3 minutes discussing the deleterious effects of continued tobacco use with the patient, including modalities which could be utilized to achieve a smoke-free lifestyle. The patient is insistent that she is no longer going to smoke any cigarettes. Nicotine replacement therapy can be offered to the patient while admitted to the hospital. 4. Morbid obesity/hyperlipidemia/depression/diabetes mellitus/hypothyroidism Complicates care, management, recovery and prognosis. Continue home medications as indicated. This note was generated with [employer] software. It may contain incorrect words, spelling, and punctuation that were not noted in checking the note before signing. HPI Consult Data Date of Consult: 11/07/21 HPI Narrative Reason for Consultation: Abnormal chest imaging HPI Narrative: The patient is a 66-year-old female, with a history as outlined below, who presented to the emergency department on November 06 with shortness of breath and hypoxemia. The patient has noted slowly progressing shortness of breath for quite some time. She does not regularly utilize supplemental oxygen at her baseline. The patient has noted an unintentional weight loss of approximately 35 pounds over the last 12 to 18 months. She does have an approximate [id number] smoking history and currently smokes 1 pack of cigarettes per day. Recent pulmonary function studies revealed evidence of a severe restrictive ventilatory impairment with symmetric reduction in diffusing capacity. On presentation to the emergency department, the patient was noted to be afebrile and hemodynamically stable. Laboratory evaluation revealed an elevated white blood cell count to 16,000. Chemistry profile revealed an elevated bicarbonate at 35. Creatinine was within normal limits. A CTA chest was obtained which demonstrated no evidence for pulmonary embolism. However, there was evidence of a left perihilar mass which was compromising the left upper lobe bronchus. There did appear to be some subcarinal adenopathy. The patient was started on antimicrobials and admitted to the progressive care unit for further management. 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 Sleep apnea Smoker Tobacco abuse Type II diabetes mellitus Home Medications albuterol sulfate 90 mcg/actuation aerosol inhaler 2 puff INHALATION Q4H PRN 04/06/18 [History Last Taken 11/05/21] aspirin 81 mg tablet,delayed release 81 mg PO DAILY 04/06/18 [History Last Taken 11/05/21] atorvastatin 80 mg tablet 80 mg PO DAILY 04/06/18 [History Last Taken 11/05/21] escitalopram oxalate 20 mg tablet 20 mg PO DAILY 04/06/18 [History Last Taken 11/05/21] fluticasone propionate 50 mcg/actuation nasal spray,suspension 1 spray INTRANASAL DAILY 04/06/18 [History Last Taken 11/05/21] glimepiride 4 mg tablet 4 mg PO QAM 04/06/18 [History Last Taken 11/05/21] levothyroxine 175 mcg tablet 175 mcg PO SUMOTUWETHFR 04/06/18 [History Last Taken 11/05/21] oxybutynin chloride 15 mg tablet,extended release 24 hr 15 mg PO DAILY 04/06/18 [History Last Taken 11/05/21] lisinopril 10 mg-hydrochlorothiazide 12.5 mg tablet 1 tab PO BID tab 04/13/18 [History Last Taken 11/05/21] levothyroxine 350 mcg PO SA 11/06/21 [History Last Taken 10/31/21] metformin 500 mg PO DAILY 11/06/21 [History Last Taken 11/05/21] Allergy/AdvReac Type Severity Reaction Status Date / Time loratadine [From Claritin] AdvReac Severe Nausea Verified 11/06/21 09:29 acetaminophen AdvReac Unknown Unknown Verified 11/06/21 09:29 [From Darvocet-N 100] celecoxib [From Celebrex] AdvReac Unknown Unknown Verified 11/06/21 09:29 meperidine [From Demerol] AdvReac Unknown Unknown Verified 11/06/21 09:29 morphine AdvReac Unknown Unknown Verified 11/06/21 09:29 Penicillins AdvReac Unknown Unknown Verified 11/06/21 09:29 propoxyphene AdvReac Unknown Unknown Verified 11/06/21 09:29 [From Darvocet-N 100] Family History Father Heart disease Sister Heart disease Surgical History History of cholecystectomy History of splenectomy History of thyroidectomy, total History of total hysterectomy Hx of appendectomy Social History Smoking Status: Current every day smoker tobacco type: cigarettes alcohol intake: current details: rare substance use type: does not use ROS Constitutional Constitutional: Denies chills or fever(s) Eyes Eyes: Denies blurry vision or change in vision ENT HEENT: Denies dizziness, dysphagia or headache(s) Cardiovascular Cardiovascular: Reports dyspnea; Denies chest pain Respiratory/Chest Respiratory/Chest: Reports dyspnea Gastrointestinal Gastrointestinal: Denies abdominal pain, diarrhea, nausea or vomiting Genitourinary Genitourinary: Denies difficulty urinating or dysuria Musculoskeletal Musculoskeletal: Denies arthralgias or back pain Integumentary Integumentary: Denies lesions, rash or skin ulcer Neurologic Neurologic: Denies abnormal gait or abnormal speech Psychiatric Psychiatric: Denies anxiety or depression Endocrine Endocrinology: Denies fatigue Hematologic/Lymphatic Hematologic/Lymphatic: Denies easy bleeding or easy bruising Physical Exam Const alert, oriented x3 and no apparent distress General Appearance: cooperative Nutritional Appearance: morbidly obese HEENT normocephalic, head/scalp atraumatic and moist oral mucous membranes Eyes PERRL, EOMs intact bilaterally and conjunctivae normal Neck supple General: trachea midline Chest inspection of chest normal Resp normal respiratory effort and no use of accessory muscles Effort and Inspection: able to speak in complete sentences Auscultation: diminished lung sounds; Negative for rales, rhonchi or wheezes Cardio regular rate and regular rhythm GI normal to inspection, nondistended, normoactive bowel sounds Extremity no clubbing, cyanosis or edema Skin no rashes or lesions noted Neuro CN's II-XII intact bilaterally, moves all extremities and no focal motor deficits Psych cooperative and affect normal Lab / Micro Data Result Diagrams: 11/07/21 05:30 11/07/21 05:30 Labs: Laboratory Results - last 24 hr 11/06/21 11:20: WBC 15.8 H, RBC 5.40, Hgb 15.7 H, Hct 48.2 H, MCV 89.3, MCH 29.1, MCHC 32.6, RDW Std Deviation 58.2 H, RDW Coeff of Kathy 18.4 H, Plt Count 361, MPV 10.1, Immature Gran % (Auto) 0.400, Neut % (Auto) 58.0, Lymph % (Auto) 28.5, [place] % (Auto) 11.4 H, Eos % (Auto) 0.9, Baso % (Auto) 0.8, Absolute Neuts (auto) 9.2 H, Absolute Lymphs (auto) 4.51, Nucleated RBC % 0, Diff Path Review May , Platelet Estimate ADEQUATE, RBC Morphology NORM C+C 11/06/21 11:20: Sodium 139, Potassium 4.4, Chloride 103, Carbon Dioxide 35.0 H, Anion Gap 1 L, BUN 13, Creatinine 0.52 L, Estim Creat Clear Calc 38.68, Est GFR (MDRD) Af Amer 149, Est GFR (MDRD) Non-Af 124, BUN/Creatinine Ratio 24.8 H, Glucose 130 H, Calcium 8.7, Troponin I High Sens 6 11/06/21 11:20: B-Natriuretic Peptide 20.7 11/06/21 12:40: Troponin I High Sens 4 11/06/21 16:40: POC Glucose 187 H 11/06/21 20:44: POC Glucose 286 H 11/07/21 05:30: WBC 11.7 H, RBC 5.13, Hgb 14.9, Hct 44.7, MCV 87.1, MCH 29.0, MCHC 33.3, RDW Std Deviation 54.4 H, RDW Coeff of Kathy 17.5 H, Plt Count 337, MPV 10.0, Immature Gran % (Auto) 0.300, Neut % (Auto) 62.2, Lymph % (Auto) 23.1, [place] % (Auto) 13.9 H, Eos % (Auto) 0.1, Baso % (Auto) 0.4, Absolute Neuts (auto) 7.3, Absolute Lymphs (auto) 2.70, Nucleated RBC % 0, Differential Comment SCANNED, Diff Path Review May foll, Reactive Lymphocytes 1+ 11/07/21 05:30: Sodium 139, Potassium 4.0, Chloride 105, Carbon Dioxide 31.0, Anion Gap 3 L, BUN 13, Creatinine 0.40 L, Estim Creat Clear Calc 38.68, Est GFR (MDRD) Af Amer 205, Est GFR (MDRD) Non-Af 169, BUN/Creatinine Ratio 32.6 H, Glucose 128 H, Calcium 8.0 L 11/07/21 06:41: POC Glucose 128 H Radiology Impression Chest CTA 11/06/21 10:13 IMPRESSION: Left hilar mass with collapse of the left upper lobe. A primary bronchogenic carcinoma should be ruled out. Small left pleural effusion. Bilateral adrenal masses more prominent on the right side. Electronically Signed: Arnold Hernandez MD at 13:01 EDT , Charges/Coding Visit Charges Inpatient E&M: 20241 Init Hosp L3 Behavior Interventions Behavior Intervention: 18894 Smoking Cessation 3-10 min
[2021-11-07] MEDS: Glimepiride 4 MG Tablet PO (08:30)
[2021-11-07] MEDS: Lisinopril 10 MG Tablet PO (08:30)
[2021-11-07] MEDS: Aspirin E.C. 81 MG Tablet PO (08:30)
[2021-11-07] MEDS: hydroCHLOROthiazide 12.5mg 12.5 MG PO (08:33)
[2021-11-07] MEDS: Tolterodine Tartrate 4 MG CAP.SA PO (08:34)
[2021-11-07] MEDS: Escitalopram Oxalate 20 MG Tablet PO (08:34)
[2021-11-07] MEDS: Fluticasone 0.05% 1 SPRAY NASAL.SRY NASAL (08:37)
[2021-11-07 08:42] VITALS: BP 132/99; PULSE 71; RESP 17; TEMP 36.6; O2SAT 95
[2021-11-07] MEDS: levoFLOXacin IV 500 MG/100 ML BAG 100 MG IV (08:47)
[2021-11-07] MEDS: 0.9% Saline Lock 10 ML Syringe IV (08:49)
[2021-11-07 11:31] LABS: Bedside Glucose 123 mg/dL (74-106)
[2021-11-07] MEDS: LORazepam 1 MG Tablet PO (12:05)
--- NOTE | 2021-11-07 12:55 | PN.HOSP_ITS ---
Subjective Subjective Patient seen and examined. She felt well today and had no complaints. SHe remains on oxygen, but denies any chest pain, palpitations, dizziness, nausea or vomiting. Review of systems is otherwise negative. Review of systems is otherwise negative. Objective Data Objective Data Vital Signs: Vital Signs Temp Pulse Resp BP Pulse Ox 97.9 F 71 17 132/99 H 95 11/07/21 08:42 11/07/21 08:42 11/07/21 08:42 11/07/21 08:42 11/07/21 08:42 Oxygen Flow Rate (L/min) 4 Oxygen Delivery Method Nasal Cannula Weight: 234 lb 9.608 oz Body Mass Index (BMI) 45.8 Intake & Output: Intake and Output for Last 24 Hours 11/05/21 11/06/21 11/07/21 23:59 23:59 23:59 Intake Total 100 / 100 2248.75 / 2248.75 Balance 100 / 100 2248.75 / 2248.75 Lab / Micro Data Result Diagrams: 11/07/21 05:30 11/07/21 05:30 Labs: Laboratory Results - last 24 hr 11/06/21 11:20: Diff Path Review December11/06/21 12:40: Troponin I High Sens 4 11/06/21 16:40: POC Glucose 187 H 11/06/21 20:44: POC Glucose 286 H 11/07/21 05:30: WBC 11.7 H, RBC 5.13, Hgb 14.9, Hct 44.7, MCV 87.1, MCH 29.0, MCHC 33.3, RDW Std Deviation 54.4 H, RDW Coeff of Kathy 17.5 H, Plt Count 337, MPV 10.0, Immature Gran % (Auto) 0.300, Neut % (Auto) 62.2, Lymph % (Auto) 23.1, [place] % (Auto) 13.9 H, Eos % (Auto) 0.1, Baso % (Auto) 0.4, Absolute Neuts (auto) 7.3, Absolute Lymphs (auto) 2.70, Nucleated RBC % 0, Differential Comment YAS Tucker, Diff Path Review December, Reactive Lymphocytes 1+ 11/07/21 05:30: Sodium 139, Potassium 4.0, Chloride 105, Carbon Dioxide 31.0, Anion Gap 3 L, BUN 13, Creatinine 0.40 L, Estim Creat Clear Calc 38.68, Est GFR (MDRD) Af Amer 205, Est GFR (MDRD) Non-Af 169, BUN/Creatinine Ratio 32.6 H, Glucose 128 H, Calcium 8.0 L 11/07/21 06:41: POC Glucose 128 H 11/07/21 11:26: POC Glucose 123 H Radiography Diagnostic Testing: Radiology Impression Chest CTA 11/06/21 10:13 IMPRESSION: Left hilar mass with collapse of the left upper lobe. A primary bronchogenic carcinoma should be ruled out. Small left pleural effusion. Bilateral adrenal masses more prominent on the right side. Electronically Signed: Arnold eHrnandez MD at 13:01 EDT , Physical Exam Const alert, oriented x3 and no apparent distress General Appearance: cooperative Exam Limitations: no limitations HEENT normocephalic, head/scalp atraumatic and hearing grossly normal bilaterally Head and Scalp: normocephalic Eyes PERRL, EOMs intact bilaterally and conjunctivae normal Neck no lymphadenopathy, supple and no JVD Resp Resp Narrative: mildly diminished breath sounds bibasally, no wheezes or crackles. On 4l of oxygen Cardio regular rate, regular rhythm, S1 normal heart sound, S2 normal heart sound and no murmurs GI normal to inspection, nondistended, normoactive bowel sounds, soft to palpation, non-tender and non-distended Extremity normal to inspection, full ROM and no clubbing, cyanosis or edema Peripheral Pulses: Yes pulses 2+ throughout Skin no rashes or lesions noted Neuro oriented x3 and CN's II-XII intact bilaterally Sensorium / Orientation: awake and alert Psych affect normal Assessment & Plan Assessment/Plan (1) Acute respiratory failure with hypoxia: (2) Lung mass: PLAN: #Acute hypoxic respiratory failure due to newly diagnosed lung mass * remains on 4L of oxygen by nasal canula * CT of the chest showed left hilar mass with collapse of the left upper lobe and primary bronchogenic carcinoma as well as small left pleural effusion and bilateral adrenal masses more prominent in the right side * She does have a history of smoking; this is concerning for cancer. * pulmonology on board; for EBUS on outpatient basis if she remains stable. If she deteriorates clinically, to consider a conventional bronchoscopy with endobronchial biopsies * on IV levofloxacin for post obstructive pneumonitis; to complete a 7 day course of antibiotics * titrate oxygen to maintain sats >90% * breathing treatment with bronchodilators * #LUng mass with left upper lobe collapse: as above #Bilateral adrenal nodules * CT showed a 3.3 cm x 3.1 cm hypodense mass in the right adrenal gland with a 1.2 cm nodule in the crux of the left adrenal gland. * To follow-up on outpatient basis for further work-up as needed. * #Hypertension; on lisinopril/HCTZ #Hypothyroidism: on synthroid #Type 2 diabetes mellitus * on metformin. ISS. Accuchecks ACHS * #Hyperlipidemia: on statin #History of nicotine dependence: Patient states she smokes 1 pack a day but quit today. Counseled to quit. Nicotine patch 20 mg daily. DVT prophylaxis: lovenox COde status: Full code * Charges/Coding Visit Charges Inpatient E&M: 61347 Subs Hosp L2
[2021-11-07 15:29] VITALS: BP 119/61; PULSE 71; RESP 17; TEMP 36.6; O2SAT 94
[2021-11-07 16:41] LABS: Bedside Glucose 110 mg/dL (74-106)
[2021-11-07] MEDS: Enoxaparin 40 MG/0.4 ML Syringe SC (17:03)
[2021-11-07 21:00] VITALS: BP 127/52; PULSE 86; RESP 18; TEMP 36.8; O2SAT 95
[2021-11-07] MEDS: Insulin Lispro 100 UNIT/ML INSULN.PEN SC (21:26)
[2021-11-07] MEDS: Atorvastatin Calcium 80 MG Tablet PO (21:26)
[2021-11-07 21:36] LABS: Bedside Glucose 197 mg/dL (74-106)
[2021-11-07] MEDS: Ipratropium/Albuterol Sulfate 3 ML AMPUL.NEB INHALATION (22:10)
[2021-11-07 22:12] VITALS: PULSE 89; RESP 21; O2SAT 92
[2021-11-08 00:55] VITALS: BP 112/55; PULSE 85; RESP 16; TEMP 36.6; O2SAT 93
[2021-11-08 05:27] LABS: Absolute Lymphocyte Count 2.61 X10^3/uL (0.83-4.51); Absolute Neutrophil Count 7.1 X10^3/uL (2.0-7.7); Basophil# 0.07 X10^3/uL; Basophil% 0.6 % (0-1); Eosinophil# 0.08 X10^3/uL; Eosinophils% 0.7 % (0-5); Hematocrit 44.8 % (37-47); Hemoglobin 14.6 g/dL (12.0-15.0); Lymphocyte # 2.61 X10^3/ul (0.83-4.51); Lymphocyte % 22.4 % (19-41); Mean Corp Hgb Conc 32.6 g/dL (32-36); Mean Corpuscular Hgb 28.7 pg (27.0-32.0); Monocyte# 1.69 X10^3/uL; Monocyte% 14.5 % (0-10); NRBC Flagged by Analyzer 0 % (0-5); Neutrophil # 7.11 X10^3/uL (2.7-7.7); Neutrophil % 61.2 % (47-70); POSITIVE DIFFERENTIAL YES; Platelet Count 358 K/mm3 (150-450); RBC Distribution Width CV 17.5 % (11.6-14.6); RBC Distribution Width SD 55.5 fl (35.1-43.9); Red Blood Count 5.09 M/mm3 (4.2-5.4); White Blood Count 11.6 K/mm3 (4.4-11.0)
[2021-11-08 05:35] LABS: Differential Indicated SCAN CRITERIA MET
[2021-11-08 05:48] LABS: Anion Gap 0 (5-15); BUN 16 mg/dL (7-18); BUN/Creat Ratio 31.2 RATIO (10-20); Calcium,Total 8.2 mg/dL (8.5-10.1); Chloride 103 mmol/L (98-107); Creatinine, Serum 0.51 mg/dL (0.55-1.02); EST Glomerular Filtration Rate 127 mL/min (>60); Est Glom Filt Rate - Afr Amer 154 mL/min (>60); Estimated Creatinine Clearance 38.68 ml/min; Glucose 94 mg/dL (74-106); Potassium 3.7 mmol/L (3.5-5.1); Sodium Level 141 mmol/L (136-145)
[2021-11-08 06:00] LABS: Anisocytosis 1+
[2021-11-08] MEDS: Levothyroxine 175 MCG Tablet PO (06:17)
[2021-11-08 06:18] VITALS: BP 129/68; PULSE 76; RESP 18; TEMP 36.6; O2SAT 92
[2021-11-08 06:26] LABS: Bedside Glucose 96 mg/dL (74-106)
[2021-11-08 07:42] VITALS: O2SAT 91
--- NOTE | 2021-11-08 08:35 | PCM.PN.INT ---
Assessment & Plan Assessment/Plan (1) Lung mass: PLAN: RECOMMENDATIONS: 1. Wean supplemental oxygen to maintain saturations at or above 90%. 2. Continue antimicrobials to complete 7-day treatment course. 3. Continue nicotine replacement therapy. 4. Consider EBUS on outpatient basis to facilitate staging as well as diagnosis. 5. If the patient worsens clinically, conventional bronchoscopy can be considered with endobronchial biopsies. 6. Okay to discharge from a pulmonary perspective if able to ambulate on 6 L or less IMPRESSIONS: 1. Shortness of breath with associated hypoxemia secondary to postobstructive pneumonia Most likely secondary to left hilar lung mass compromising the left upper lobe bronchus, leading to distal airway collapse and postobstructive pneumonia. Recent PFTs demonstrated evidence of a severe restrictive impairment with symmetric reduction in diffusing capacity, likely from lobar collapse. Plan to continue to wean supplemental oxygen as tolerated to maintain saturations at or above 90%. Continue empiric antimicrobials, with plans to complete a 7-day treatment course. We will order a walking oximetry. If patient can tolerate ambulation on 6 L or less of nasal cannula oxygen, likely okay to discharge from a pulmonary perspective to complete antibiotics. Will attempt to arrange EBUS as an outpatient 2. Left hilar lung mass CT imaging revealed a sizable left hilar lung mass which appears to be compromising the left upper lobe bronchus leading to extrinsic compression and distal airway collapse. Patient will need a bronchoscopy for definitive diagnosis. There is currently a bronchoscopy scheduled for Tuesday for another patient, but will attempt to move this. Patient should receive a phone call from our office before Tuesday if the EBUS can be completed on November 13. If not, patient will tentatively be scheduled for November 20 3. Chronic tobacco dependency Continue nicotine therapy. Encourage complete cessation. 4. Morbid obesity/hyperlipidemia/depression/diabetes mellitus/hypothyroidism Complicates care, management, recovery and prognosis. Continue home medications as indicated. Subjective Subjective Patient did okay overnight. Patient continues to have a productive cough, but feels this is improving. Patient has been compliant with her supplemental oxygen. Patient is denying any epistaxis. Patient feels she is strong enough to go home. Objective Data Objective Data Vital Signs: Vital Signs Temp Pulse Resp BP Pulse Ox 36.6 C 76 18 129/68 H 91 11/08/21 06:18 11/08/21 06:18 11/08/21 06:18 11/08/21 06:18 11/08/21 07:42 Oxygen Flow Rate (L/min) 2 Oxygen Delivery Method Nasal Cannula Weight: 106.413 kg Body Mass Index (BMI) 45.8 Intake & Output: Intake and Output for Last 24 Hours 11/06/21 11/07/21 11/08/21 23:59 23:59 23:59 Intake Total 100 / 100 2898.75 / 2898.75 660 / 660 Balance 100 / 100 2898.75 / 2898.75 660 / 660 Lab / Micro Data Result Diagrams: 11/08/21 05:03 11/08/21 05:03 Labs: Laboratory Results - last 24 hr 11/07/21 11:26: POC Glucose 123 H 11/07/21 16:32: POC Glucose 110 H 11/07/21 21:24: POC Glucose 197 H 11/08/21 05:03: WBC 11.6 H, RBC 5.09, Hgb 14.6, Hct 44.8, MCV 88.0, MCH 28.7, MCHC 32.6, RDW Std Deviation 55.5 H, RDW Coeff of Kathy 17.5 H, Plt Count 358, MPV 10.0, Immature Gran % (Auto) 0.600, Neut % (Auto) 61.2, Lymph % (Auto) 22.4, [place] % (Auto) 14.5 H, Eos % (Auto) 0.7, Baso % (Auto) 0.6, Absolute Neuts (auto) 7.1, Absolute Lymphs (auto) 2.61, Nucleated RBC % 0, Diff Path Review May foll, Anisocytosis 1+ 11/08/21 05:03: Sodium 141, Potassium 3.7, Chloride 103, Carbon Dioxide 38.0 H, Anion Gap 0 L, BUN 16, Creatinine 0.51 L, Estim Creat Clear Calc 38.68, Est GFR (MDRD) Af Amer 154, Est GFR (MDRD) Non-Af 127, BUN/Creatinine Ratio 31.2 H, Glucose 94, Calcium 8.2 L 11/08/21 06:15: POC Glucose 96 Physical Exam Const alert, oriented x3 and no apparent distress General Appearance: cooperative Nutritional Appearance: morbidly obese HEENT normocephalic, head/scalp atraumatic and moist oral mucous membranes Eyes PERRL, EOMs intact bilaterally and conjunctivae normal Neck supple General: trachea midline Chest inspection of chest normal Chest: symmetrical chest wall rise; Negative for crepitus Resp normal respiratory effort and no use of accessory muscles Effort and Inspection: able to speak in complete sentences Auscultation: diminished lung sounds; Negative for rales, rhonchi or wheezes Cardio regular rate and regular rhythm GI normal to inspection, nondistended, normoactive bowel sounds Extremity no clubbing, cyanosis or edema Skin no rashes or lesions noted Neuro CN's II-XII intact bilaterally, moves all extremities and no focal motor deficits Psych cooperative and affect normal Charges/Coding Visit Charges Inpatient E&M: 31754 Subs Hosp L2
[2021-11-08] MEDS: Lisinopril 10 MG Tablet PO (08:59)
[2021-11-08] MEDS: Escitalopram Oxalate 20 MG Tablet PO (08:59)
[2021-11-08] MEDS: Tolterodine Tartrate 4 MG CAP.SA PO (08:59)
[2021-11-08] MEDS: Fluticasone 0.05% 1 SPRAY NASAL.SRY NASAL (08:59)
[2021-11-08] MEDS: Aspirin E.C. 81 MG Tablet PO (08:59)
[2021-11-08] MEDS: Enoxaparin 40 MG/0.4 ML Syringe SC (09:00)
[2021-11-08] MEDS: Glimepiride 4 MG Tablet PO (09:00)
[2021-11-08] MEDS: hydroCHLOROthiazide 12.5mg 12.5 MG PO (09:01)
[2021-11-08] MEDS: 0.9% Saline Lock 10 ML Syringe IV (09:11)
[2021-11-08] MEDS: LORazepam 1 MG Tablet PO (09:11)
[2021-11-08] MEDS: levoFLOXacin IV 500 MG/100 ML BAG 100 MG IV (09:11)
--- NOTE | 2021-11-08 09:14 | NURSING ---
Aware of the vital signs that were taken by Jessica Quarles this morning.
[2021-11-08 09:30] VITALS: O2SAT 2
--- NOTE | 2021-11-08 09:33 | NURSING ---
Iv leaking and went bad. D/c'ed. Will ask if levaquin can be po since pt states doctor said she is going home today.
--- NOTE | 2021-11-08 11:09 | PCM.DC.SUM ---
Providers Date of Admission: 11/06/21 Primary Care Physician: Dr. Rosaura Carnes, DO Consultations 11/06/21 15:16 Consult: Sequins Stringer / Pulmonary Medicine Routine Consulting Provider: Pulmonary Medicine gisele Joshi Reason for Consult: lung mass, acute hypoxic respiratory failure EMERGENT Consult: No MD Notified: Yes Date Notified: 11/06/21 Time Notified: 13:52 Method of Notification: Text Reason For Visit: ACUTE HYPOXIC RESPIRATORY FAILURE, LUNG MASS Diagnosis Discharge Diagnosis (1) Lung mass: Status: Acute Code(s): R91.8 - Other nonspecific abnormal finding of lung field (2) Acute respiratory failure with hypoxia: Status: Acute Code(s): J96.01 - Acute respiratory failure with hypoxia Medications at Discharge Home Medications albuterol sulfate 90 mcg/actuation aerosol inhaler 2 puff INHALATION Q4H PRN 04/06/18 aspirin 81 mg tablet,delayed release 81 mg PO DAILY 04/06/18 atorvastatin 80 mg tablet 80 mg PO DAILY 04/06/18 escitalopram oxalate 20 mg tablet 20 mg PO DAILY 04/06/18 fluticasone propionate 50 mcg/actuation nasal spray,suspension 1 spray INTRANASAL DAILY 04/06/18 glimepiride 4 mg tablet 4 mg PO QAM 04/06/18 levothyroxine 175 mcg tablet 175 mcg PO SUMOTUWETHFR 04/06/18 oxybutynin chloride 15 mg tablet,extended release 24 hr 15 mg PO DAILY 04/06/18 lisinopril 10 mg-hydrochlorothiazide 12.5 mg tablet 1 tab PO BID tab 04/13/18 levothyroxine 350 mcg PO SA 11/06/21 metformin 500 mg PO DAILY 11/06/21 levofloxacin 500 mg PO DAILY #5 tab 11/08/21 Hospital Course Operations None Procedures None Summary of Care Provided Minutes Spent on Discharge: 45 Hospital Course: YING AGUILAR, is a 66 F with a PMH as outlined who presents via the ED on 11/06/2021 with a complaint of shortness of breath which had been going on for ~ 1-2 weeks. She was found to be hypoxic in the 70s by the EMS. She had chest pain which was sharp and radiated to her back. She denied any recent travels or immobilisation or history of PE; she had a cxr done 1 week ago which showed a right hilar mass. Review of systems is otherwise negative. VItals in the ED were BP of 121/46, ID of 88, RR of 24 and temp of 98F. She was saturating at 93% on 2L of oxygen. CBC showed Hb of 15.7, wbc of 15.8, platelets of 361. BMP was largely unremarkable. CTA of the chest showed left hilar mass with collapse of hte left upper lobe, with small left pleural effusion concerning for primary bronchogenic carcinoma; bilateral adrenal masses were also more prominent on the right side. She was admitted to be managed for acute hypoxic respiratory failure due to probable lung cancer. She was started on IV levaquin due to post obstructive pneumonitis. Pulmonology was consulted. Pulmonology recommended a 7 day course of antibiotics, and to follow up with pulmonology on outpatient basis for EBUS and biopsy. Patient seen and examined. She had no active complaints and felt well. She remains on 2L of oxygen. Review of systems otherwise negative. Labs and vitals reviewed. Home meds reviewed and reconciled. Physical Exam Const alert, oriented x3 and no apparent distress General Appearance: cooperative and comfortable Exam Limitations: no limitations HEENT normocephalic, head/scalp atraumatic and hearing grossly normal bilaterally Eyes PERRL, EOMs intact bilaterally and conjunctivae normal Neck no lymphadenopathy, supple and no JVD Resp Resp Narrative: mildly diminished breath sounds bibasally, no wheezes or crackles. On 2L of oxygen Cardio regular rate, regular rhythm, S1 normal heart sound, S2 normal heart sound and no murmurs GI normal to inspection, nondistended, normoactive bowel sounds, soft to palpation, non-tender and non-distended Extremity normal to inspection, full ROM and no clubbing, cyanosis or edema Skin no rashes or lesions noted Neuro oriented x3 and CN's II-XII intact bilaterally Sensorium / Orientation: awake and alert Psych affect normal Weight / BMI Weight Weight: 234 lb 9.608 oz Body Mass Index (BMI) 45.8 ABG / Lab / Microbiology Data Result Diagrams: 11/08/21 05:03 11/08/21 05:03 Laboratory: Laboratory Results - last 24 hr 11/07/21 11:26: POC Glucose 123 H 11/07/21 16:32: POC Glucose 110 H 11/07/21 21:24: POC Glucose 197 H 11/08/21 05:03: WBC 11.6 H, RBC 5.09, Hgb 14.6, Hct 44.8, MCV 88.0, MCH 28.7, MCHC 32.6, RDW Std Deviation 55.5 H, RDW Coeff of Kathy 17.5 H, Plt Count 358, MPV 10.0, Immature Gran % (Auto) 0.600, Neut % (Auto) 61.2, Lymph % (Auto) 22.4, [place] % (Auto) 14.5 H, Eos % (Auto) 0.7, Baso % (Auto) 0.6, Absolute Neuts (auto) 7.1, Absolute Lymphs (auto) 2.61, Nucleated RBC % 0, Diff Path Review May foll, Anisocytosis 1+ 11/08/21 05:03: Sodium 141, Potassium 3.7, Chloride 103, Carbon Dioxide 38.0 H, Anion Gap 0 L, BUN 16, Creatinine 0.51 L, Estim Creat Clear Calc 38.68, Est GFR (MDRD) Af Amer 154, Est GFR (MDRD) Non-Af 127, BUN/Creatinine Ratio 31.2 H, Glucose 94, Calcium 8.2 L 11/08/21 06:15: POC Glucose 96 D/C Instructions Discharge Diet: Low fat / Low cholesterol Discharge Activity: Return to Normal Activity Call your doctor if you observe: Fever of 101 or Higher, Shortness of breath, Dizziness, Swelling in the ankles and Chest pain Meaningful Use Info Meaningful Use Diagnoses (Choose all that apply): None applicable Discharge Plan Admission Admit Date/Time: 11/06/21 13:49 Primary Reason for Your Visit: acute hypoxic respiratory failure, lung mass Attending Provider: Ramila Arias Primary Care Provider: Rosaura Carnes Consulting Providers: John Ag ; Wilfrid Jarquin ; Britney Beard FIELD SERVICE TECH Instructions Patient Instructions: ED Dyspnea, ED Pulmonary Nodule, Solitary Additional Instructions / Restrictions: use oxygen for shortness of breath as needed Discharge Orders/Prescriptions Prescriptions: New levofloxacin 500 mg tablet 500 mg PO DAILY Qty: 5 RF: 0 Continued lisinopril-hydrochlorothiazide 10-12.5 mg tablet 1 tab PO BID RF: 0 glimepiride [Amaryl] 4 mg tablet 4 mg PO QAM RF: 0 fluticasone propionate [Allergy Relief (fluticasone)] 50 mcg/actuation spray,suspension 1 spray INTRANASAL DAILY RF: 0 escitalopram oxalate [Lexapro] 20 mg tablet 20 mg PO DAILY RF: 0 levothyroxine 175 mcg tablet 175 mcg PO SUMOTUWETHFR RF: 0 oxybutynin chloride 15 mg tablet extended release 24hr 15 mg PO DAILY RF: 0 atorvastatin 80 mg tablet 80 mg PO DAILY RF: 0 aspirin 81 mg tablet,delayed release (DR/EC) 81 mg PO DAILY RF: 0 albuterol sulfate [Proventil HFA] 90 mcg/actuation HFA aerosol inhaler 2 puff INHALATION Q4H PRN (Reason: SOB) RF: 0 metformin 500 mg tablet 500 mg PO DAILY RF: 0 levothyroxine 175 mcg tablet 350 mcg PO SA RF: 0 Referrals / Follow Up: Wilfrid Jarquin DO [STAFF PHYSICIAN] - Within 1 Week Rosaura Carnes DO [Primary Care Provider] - Within 2 Weeks Disposition Disposition (needs filled in before D/C Order can be placed): Home, Self Care Charges/Coding Visit Charges Inpatient E&M: 65169 Disch Hosp
[2021-11-08 11:32] VITALS: O2SAT 82; O2SAT 88; O2SAT 92
[2021-11-08 11:46] LABS: Bedside Glucose 112 mg/dL (74-106)
[2021-11-08 13:43] VITALS: BP 105/58; PULSE 83; RESP 20; TEMP 36.9; O2SAT 93
[2021-11-10 13:52] LABS: Pathologist Review Reviewed
[2021-11-10 14:00] LABS: Pathologist Review Reviewed
[2021-11-10 14:10] LABS: Pathologist Review Reviewed
== END 2021-11-08 13:57 | disposition home or self-care (01) | DRG 193 ==
LOC: ED 12:51 → PCU 14:11
PROVIDERS: Admitting Provider Student in an Organized Health Care Education/Training Program; Emergency Provider Student in an Organized Health Care Education/Training Program; PCP Internal Medicine; Visit Provider Student in an Organized Health Care Education/Training Program
DX: J18.9 Pneumonia, unspecified organism (principal); J96.01 Acute respiratory failure with hypoxia; C34.02 Malignant neoplasm of left main bronchus; Z68.41 Body mass index [BMI] 40.0-44.9, adult; J90 Pleural effusion, not elsewhere classified; E27.9 Disorder of adrenal gland, unspecified; E11.9 Type 2 diabetes mellitus without complications; E66.01 Morbid (severe) obesity due to excess calories; E78.5 Hyperlipidemia, unspecified; E03.9 Hypothyroidism, unspecified; F17.210 Nicotine dependence, cigarettes, uncomplicated; I10 Essential (primary) hypertension; M79.7 Fibromyalgia; M19.90 Unspecified osteoarthritis, unspecified site; F32.A Depression, unspecified; Z79.1 Long term (current) use of non-steroidal anti-inflammatories (NSAID); Z79.82 Long term (current) use of aspirin; Z79.84 Long term (current) use of oral hypoglycemic drugs; Z79.899 Other long term (current) drug therapy; Z86.73 Personal history of transient ischemic attack (TIA), and cerebral infarction without residual deficits
CPT/HCPCS: 36415; 71275; 80048; 82962; 83880; 84484; 85025; 93005; 94640; 97802; 99285; J7030; Q9967; A4216

== ENCOUNTER 2021-11-13 10:58 | Day surgery (SDC) | payer MEDICARE, BC, SELFPAY ==
[2021-11-13] VITALS (13 sets, daily range): BP systolic 112–187; BP diastolic 61–95; PULSE 24–121; RESP 18–28; TEMP 36.2–37; O2SAT 92–96; BMI 44.9
--- NOTE | 2021-11-13 | ASPIG_PTH ---
PATIENT: YING AGUILAR LOC: EN U#:[id number] AGE/SX: 66/F ROOM: RE11/13/[address]: Dr. John Ag MD : 1955 BED: DIS: 11/13/2021 SPEC #: [id number] RECD: 11/13/21 13:49 STATUS: HUA THELMA #: [id number] DOLORES: 11/13/21 00:[address]: John Ag DEPT: CYTOLOGY RECD BY: Nic Wilder ENTERED: 11/13/21 13:58 SP TYPE: ASP OUT OTHR DR: Dr. Rosaura Carnes DO Tissues: A - Lung, NOS B - Lung, NOS C - Lung, NOS D - Lung, NOS E - Lung, NOS F - Lung, NOS G - Lung, NOS H - Lung, NOS I - Lung, NOS J - Lung, NOS K - Lung, NOS L - Lung, NOS M - Lung, NOS N - Lung, NOS Procedures: FNA Specimen Adequacy Special Stain Group II Surgery Specimen Level IV Cytology Other HEADER OPERATION: EBUS PRE-OP DIAGNOSIS: Lung mass TISSUE SUBMITTED: A - EBUS, TBNA, site 4R #1, B - EBUS, TBNA, site 4R #2, C - EBUS, TBNA, site 4R #3, D - EBUS, TBNA, site 7 #4, E - EBUS, TBNA, site 7 #5, F - EBUS, TBNA, site 7 #6, G - EBUS, TBNA, site 7 #7, H - EBUS, TBNA, site 7 #8, I - EBUS, TBNA, site 7 #9, J - EBUS, TBNA, site 7 #10, K??EBUS, TBNA, site 7 #11, L - EBUS, TBNA, site 4R, M - EBUS, TBNA, site 7, N - EBUS fluid DIAGNOSIS CYTOLOGY A. EBUS, TBNA, site 4R #1: Respiratory epithelial cells noted. Negative for malignant cells. B. EBUS, TBNA, site 4R #2: Lymphocytes present. Negative for malignant cells. Adequate for evaluation. Respiratory epithelial cells noted. C. EBUS, TBNA, site 4R #3: Lymphocytes present. Negative for malignant cells. Adequate for evaluation. See comment. D. EBUS, TBNA, site 7 #4: Paucicellular specimen. E. EBUS, TBNA, site 7 #5: Respiratory epithelial cells noted. Predominantly mucus. Negative for malignant cells. F. EBUS, TBNA, site 7 #6: Bloody specimen. Negative for malignant cells. G. EBUS, TBNA, site 7 #7: Bloody specimen. Negative for malignant cells. H. EBUS, TBNA, site 7 #8: Bloody specimen. Negative for malignant cells. I. EBUS, TBNA, site 7 #9: Bloody specimen. Rare lymphocytes noted. Negative for malignant cells. J. EBUS, TBNA, site 7 #10: Lymphocytes present. Adequate for evaluation. Negative for malignant cells. K. EBUS, TBNA, site 7 #11: Paucicellular specimen. Rare respiratory epithelial cells. Negative for malignant cells. L. EBUS, TBNA, site 4R fluid (cell block): Paucicellular specimen, a few lymphocytes present. Negative for malignant cells. M. EBUS, TBNA, site 7 fluid (cell block): Negative for malignant cells. Numerous lymphocytes present. See comment. N. EBUS fluid washing (cytospin and cell block): Positive for malignant cells derived from non-small cell carcinoma, favor squamous cell carcinoma. SJ:lyric 11/17/2021 COMMENT The specimen is evaluated at the time of procedure by Dr. Paula. Rapid Onsite Evaluation: A. EBUS, TBNA, site 4R #1: Respiratory epithelial cells noted. Negative for malignant cells. B. EBUS, TBNA, site 4R #2: Lymphocytes present. Negative for malignant cells. Adequate for evaluation. Respiratory epithelial cells noted. C. EBUS, TBNA, site 4R #3: Suspicious for malignant cells. Lymphocytes present. D. EBUS, TBNA, site 7 #4: Paucicellular specimen. E. EBUS, TBNA, site 7 #5: Respiratory epithelial cells noted. Predominantly mucus. Negative for malignant cells. F. EBUS, TBNA, site 7 #6: Bloody specimen. Negative for malignant cells. G. EBUS, TBNA, site 7 #7: Bloody specimen. Negative for malignant cells. H. EBUS, TBNA, site 7 #8: Bloody specimen. Negative for malignant cells. I. EBUS, TBNA, site 7 #9: Bloody specimen. Rare lymphocytes. Negative for malignant cells. J. EBUS, TBNA, site 7 #10: Lymphocytes present. Adequate for evaluation. Negative for malignant cells. K. EBUS, TBNA, site 7 #11: Paucicellular specimen. Rare respiratory epithelial cells. Negative for malignant cells. C. A few cells with crushed artifacts are noted. M. A fragment of cartilage is also noted. Please also refer to corresponding surgical specimen ([id number]) left upper lung mass, endobronchial biopsy with diagnosis of non-small cell carcinoma, favor squamous cell carcinoma. Case has been reviewed in consultation with Dr. Menendez who concurs with the above diagnosis. IDC:AM CYTOLOGY STUDY Slides are reviewed. CYTOLOGY GROSS A - Received labeled with the patient's name and and designated EBUS, TBNA, site 4R #1. The specimen consists of two stained smears for OZ (Rapid Onsite Evaluation). B - Received labeled with the patient's name and and designated EBUS, TBNA, site 4R #2. The specimen consists of two stained smears for OZ. C - Received labeled with the patient's name and and designated EBUS, TBNA, site 4R #3. The specimen consists of two stained smears for OZ. D - Received labeled with the patient's name and and designated EBUS, TBNA, site 7 #4. The specimen consists of two stained smears for OZ. E - Received labeled with the patient's name and and designated EBUS, TBNA, site 7 #5. The specimen consists of two stained smears for OZ. F - Received labeled with the patient's name and and designated EBUS, TBNA, site 7 #6. The specimen consists of two stained smears for OZ. G - Received labeled with the patient's name and and designated EBUS, TBNA, site 7 #7. The specimen consists of two stained smears for OZ. H - Received labeled with the patient's name and and designated EBUS, TBNA, site 7 #8. The specimen consists of two stained smears for OZ. I - Received labeled with the patient's name and and designated EBUS, TBNA, site 7 #9. The specimen consists of two stained smears for OZ. J - Received labeled with the patient's name and and designated EBUS, TBNA, site 7 #10. The specimen consists of two stained smears for OZ. K - Received labeled with the patient's name and and designated EBUS, TBNA, site 7 #11. The specimen consists of two stained smears for OZ. L - Received in RPMI is 20 ml of pink, needle rinsed fluid labeled with the patient's name and and designated EBUS, TBNA, site 4R. The specimen is submitted for cell block preparation. M - Received in RPMI is 20 ml of pink, needle rinsed fluid labeled with the patient's name and and designated EBUS, TBNA, site 7. The specimen is submitted for cell block preparation. N - Received is 15 ml of red cloudy fluid labeled with the patient's name and and designated per the requisition as EBUS fluid, washing. Submitted for cytology preparation including cell block. / SJ:rg 11/13/2021 TC:0 CPT: 05019 x3, 15570, 33622 x9, 53443 x2, 66054 x2
--- NOTE | 2021-11-13 | IMM_PTH ---
PATIENT: YING AGUILAR LOC: EN U#:[id number] AGE/SX: 66/F ROOM: RE11/13/[address]: Dr. John Ag MD : 1955 BED: DIS: 11/13/2021 SPEC #: [id number] RECD: 11/17/21 12:34 STATUS: HUA REQ #: [id number] DOLORES: 11/13/21 00:[address]: John Ag DEPT: IMMUNOHISTOCHEMISTRY RECD BY: Jacquelin Cleaning ENTERED: 11/17/21 12:36 SP TYPE: IMMUNO OTHR DR: Dr. Rosaura Carnes DO Tissues: Left upper lobe of lung, NOS Procedures: RCC (add) NAPSIN A (add) CK20 (add) CK5-6 (add) CK7 (add) CK8 (add) HEP PAR (add) KS (add) TTF1 (add) Pankeratin (add) P40 (add) ER (initial) PHYSICIAN & [address] [address] SPECIMEN INFORMATION: Tissue Source: Left upper lung Clinical Info: Left upper lung mass Specimen Number: [id number] CPT code: 79453, 70963 x11 METHODOLOGY: Deparaffinized sections of prefer/formalin-fixed tissue or PAP/DQ stained slides are incubated with monoclonal/polyclonal antibodies/oligonucleotide probes. Localization is made via biotin free immunoperoxidase method. Appropriate controls are performed and reacted as expected. Results on target cell population are indicated in the following table: RESULTS: ANTIBODY / CLONE RESULT ER (6F11) negative KS (1E2) positive, weak and focal AE1-3 (AE1/AE3/PCK26) positive CK7 (OV-TL12/30) negative CK8 (94obxwD96) positive CK20 (KS20.8) negative TTF-1 (8G7G3/1) negative Napsin A (Rabbit Polyclonal) negative HepPar (OCh1E5) negative RCC (PN-15) negative CK5-6 (D5 & 1684) positive P40 (BC28) positive These tests were developed and their performance characteristics determined by [facility]. They may not have been cleared or approved by the U.S. Food and Drug Administration. The FDA has determined that such clearance or approval is not necessary. The above immunohistochemical/dualISH markers are ordered and reviewed by the Pathologist. INTERPRETATION: Left upper lung mass, endobronchial biopsy: Non-small cell carcinoma, favor squamous cell carcinoma. :lyric 11/18/2021
--- NOTE | 2021-11-13 | LUNG_PTH ---
PATIENT: YING AGUILAR LOC: EN U#:[id number] AGE/SX: 66/F ROOM: RE11/13/[address]: Dr. John Ag MD : 1955 BED: DIS: 11/13/2021 SPEC #: [id number] RECD: 11/13/21 14:06 STATUS: HUA THELMA #: [id number] DOLORES: 11/13/21 00:[address]: John Ag DEPT: SURGICAL PATHOLOGY RECD BY: Britney Yuen ENTERED: 11/16/21 12:20 SP TYPE: LUNG BX OTHR DR: Dr. Rosaura Carnes, Tissues: Lung, NOS Procedures: Surgery Specimen Level IV HEADER OPERATION: Endobronchial biopsy PRE-OP DIAGNOSIS: Lung mass TISSUE SUBMITTED: Left upper lung MICROSCOPIC DIAGNOSIS Left upper lung mass, endobronchial biopsy: Non-small cell carcinoma, favor squamous cell carcinoma. See comment. ALYSIA:lyric 11/17/2021 COMMENT Immunohistochemistry ([id number]) supports the above diagnosis. Please also correlate with corresponding cytology specimen, [id number]. Molecular studies on the can be performed if clinically indicated, please notify the laboratory if they are needed. This case has been reviewed in consultation with Dr. Menendez who concurs with the above diagnosis. MICROSCOPIC DESCRIPTION Slides are reviewed. GROSS DESCRIPTION Received in fixative is one container labeled with the patient's name and designated endobronchial biopsy left upper lobe. The specimen consists of multiple irregular fragments of light hoff soft tissue that in aggregate measure 1 x 0.3 x <0.1 cm. The specimen is totally submitted in one cassette. / AM:lyric 11/16/2021 TC:0 [facility]: [id number] ADDENDUM ADDENDUM ADDENDUM ADDENDUM ADDENDUM ADDENDUM ADDENDUM ADDENDUM ADDENDUM ADDENDUM ADDENDUM ADDENDUM ADDENDUM ADDENDUM ADDENDUM ADDENDUM ADDENDUM ADDENDUM ADDENDUM ADDENDUM 12/03/2021 07:35 ADDENDUM 10/21/2022 10:29 ADDENDUM 12/03/2021 07:35 ADDENDUM 12/03/2021 07:35 ADDENDUM 12/03/2021 07:35 ADDENDUM 12/03/2021 07:35 [facility] LUNG CANCER NGS REPORT FROM [facility] RESULT SUMMARY: Abnormal IMMUNOTHERAPY BIOMARKERS: Tumor Mutation Dimmitt: High (10.2 Mutations / MB) Microsatellite Instability: MSI Negative PERTINENT NEGATIVE RESULTS: The following genes are NEGATIVE for clinically relevant mutations. Mutational hotspots and surrounding exonic regions were interrogated for DNA level point mutations and indels (fusions not assayed). AKT1, ALK, ATR, BRAF, CHEK1, DDR2, EGFR, ERBB2, FGFR1, KRAS, MAP2K1, NRAS, NTRK1, PIK3CA, POLD1, POLE, ROS1, STK11, TERT PD-L1 (KEYTRUDA) IMMUNOHISTOCHEMICAL ANALYSIS FROM [facility] RESULTS: Tumor proportion score: <1% / Negative Please see complete report in e-chart or EMR This addendum is added to incorporate an outside pathology consultation report. The case was examined at [facility] (#[id number]) and the following diagnosis was rendered. Lung, left upper lobe, endobronchial biopsy: Squamous cell carcinoma. Please see complete above mentioned consultation report in EMR
[2021-11-13] MEDS: Lactated Ringers 1,000 ML 15 ML IV (11:42)
[2021-11-13] MEDS: Lidocaine 4% 5 ML Ampul INHALATION ×2 (11:48→14:15)
--- NOTE | 2021-11-13 11:53 | HP.PCM_ITS ---
History and Physical Date of Admission: 11/13/21 Patient seen and examined prior to the procedure. All questions were answered. There is no change in physical exam. Patient understands that both transbronchial and endobronchial biopsies are planned. Signs and symptoms of decompensation were reviewed along with instructions to come to the ER. Patient can likely follow-up after biopsy results are available Assessment & Plan Assessment/Plan (1) Lung mass: PLAN: RECOMMENDATIONS: 1. Wean supplemental oxygen to maintain saturations at or above 90%. 2. Continue antimicrobials to complete 7-day treatment course. 3. Continue nicotine replacement therapy. 4. Consider EBUS on outpatient basis to facilitate staging as well as diagnosis. 5. If the patient worsens clinically, conventional bronchoscopy can be considered with endobronchial biopsies. 6. Okay to discharge from a pulmonary perspective if able to ambulate on 6 L or less IMPRESSIONS: 1. Shortness of breath with associated hypoxemia secondary to postobstructive pneumonia Most likely secondary to left hilar lung mass compromising the left upper lobe bronchus, leading to distal airway collapse and postobstructive pneumonia. Recent PFTs demonstrated evidence of a severe restrictive impairment with symmetric reduction in diffusing capacity, likely from lobar collapse. Plan to continue to wean supplemental oxygen as tolerated to maintain saturations at or above 90%. Continue empiric antimicrobials, with plans to complete a 7-day treatment course. We will order a walking oximetry. If patient can tolerate ambulation on 6 L or less of nasal cannula oxygen, likely okay to discharge from a pulmonary perspective to complete antibiotics. Will attempt to arrange EBUS as an outpatient 2. Left hilar lung mass CT imaging revealed a sizable left hilar lung mass which appears to be compromising the left upper lobe bronchus leading to extrinsic compression and distal airway collapse. Patient will need a bronchoscopy for definitive diagnosis. There is currently a bronchoscopy scheduled for Tuesday for another patient, but will attempt to move this. Patient should receive a phone call from our office before Tuesday if the EBUS can be completed on November 13. If not, patient will tentatively be scheduled for November 20 3. Chronic tobacco dependency Continue nicotine therapy. Encourage complete cessation. 4. Morbid obesity/hyperlipidemia/depression/diabetes mellitus/hypothyroidism Complicates care, management, recovery and prognosis. Continue home medications as indicated. Subjective Subjective Patient did okay overnight. Patient continues to have a productive cough, but feels this is improving. Patient has been compliant with her supplemental oxygen. Patient is denying any epistaxis. Patient feels she is strong enough to go home. Objective Data Objective Data Vital Signs: Vital Signs Temp Pulse Resp BP Pulse Ox 36.6 C 76 18 129/68 H 91 11/08/21 06:18 11/08/21 06:18 11/08/21 06:18 11/08/21 06:18 11/08/21 07:42 Oxygen Flow Rate (L/min) 2 Oxygen Delivery Method Nasal Cannula Weight: 106.413 kg Body Mass Index (BMI) 45.8 Intake & Output:Intake and Output for Last 24 Hours 11/06/21 11/07/21 11/08/21 23:59 23:59 23:59 Intake Total 100 / 100 2898.75 / 2898.75 660 / 660 Balance 100 / 100 2898.75 / 2898.75 660 / 660 Lab / Micro Data Result Diagrams: 11/08/21 05:03 document embedded image 11/08/21 05:03 document embedded image Labs:Laboratory Results - last 24 hr 11/07/21 11:26: POC Glucose 123 H 11/07/21 16:32: POC Glucose 110 H 11/07/21 21:24: POC Glucose 197 H 11/08/21 05:03: WBC 11.6 H, RBC 5.09, Hgb 14.6, Hct 44.8, MCV 88.0, MCH 28.7, M CHC 32.6, RDW Std Deviation 55.5 H, RDW Coeff of Kathy 17.5 H, Plt Count 358, MPV 10.0, Immature Gran % (Auto) 0.600, Neut % (Auto) 61.2, Lymph % (Auto) 22.4, [place] % (Auto) 14.5 H, Eos % (Auto) 0.7, Baso % (Auto) 0.6, Absolute Neuts (auto) 7.1, Absolute Lymphs (auto) 2.61, Nucleated RBC % 0, Diff Path Review May foll, Anisocytosis 1+ 11/08/21 05:03: Sodium 141, Potassium 3.7, Chloride 103, Carbon Dioxide 38.0 H, Anion Gap 0 L, BUN 16, Creatinine 0.51 L, Estim Creat Clear Calc 38.68, Est GFR (MDRD) Af Amer 154, Est GFR (MDRD) Non-Af 127, BUN/Creatinine Ratio 31.2 H, Glucose 94, Calcium 8.2 L 11/08/21 06:15: POC Glucose 96 Physical Exam Const alert, oriented x3 and no apparent distress General Appearance: cooperative Nutritional Appearance: morbidly obese HEENT normocephalic, head/scalp atraumatic and moist oral mucous membranes Eyes PERRL, EOMs intact bilaterally and conjunctivae normal Neck supple General: trachea midline Chest inspection of chest normal Chest: symmetrical chest wall rise; Negative for crepitus Resp normal respiratory effort and no use of accessory muscles Effort and Inspection: able to speak in complete sentences Auscultation: diminished lung sounds; Negative for rales, rhonchi or wheezes Cardio regular rate and regular rhythm GI normal to inspection, nondistended, normoactive bowel sounds Extremity no clubbing, cyanosis or edema Skin no rashes or lesions noted Neuro CN's II-XII intact bilaterally, moves all extremities and no focal motor deficits Psych cooperative and affect normal Assessment & Plan Assessment/Plan (1) Lung mass:
[2021-11-13 11:56] LABS: Bedside Glucose 127 mg/dL (74-106)
[2021-11-13] MEDS: 0.9% Normal Saline (Pres. free 10 ML Vial (14:16)
[2021-11-13] MEDS: Lidocaine 2% Jelly 1 APPLIC Tube (14:17)
[2021-11-13] MEDS: Epinephrine (1 mg/ml) 1 MG/ML VIAL (14:17)
--- NOTE | 2021-11-13 14:17 | OP.BRONCH_ITS ---
Patient Name: Gloria Das Procedure Date: 11/13/2021 11:40 AM Date of : 1955 Age: 66 Procedure: Bronchoscopy Indications: Mediastinal adenopathy, Lung mass suspicious for cancer Providers: John Ag MD Medicines: See the Anesthesia note for documentation of the administered medications Complications: No immediate complications Procedure: Pre-Anesthesia Assessment: - Prior to the procedure, a History and Physical was performed, and patient medications and allergies were reviewed. The patient's tolerance of previous anesthesia was also reviewed. The risks and benefits of the procedure and the sedation options and risks were discussed with the patient. All questions were answered, and informed consent was obtained. Prior Anticoagulants: The patient has taken aspirin, last dose was 5 days prior to procedure. ASA Grade Assessment: III - A patient with severe systemic disease. After reviewing the risks and benefits, the patient was deemed in satisfactory condition to undergo the procedure. After I obtained informed consent, the scope was passed under direct vision. Throughout the procedure, the patient's blood pressure, pulse, and oxygen saturations were monitored continuously. The ultrasound bronchoscope was introduced through the mouth, via laryngeal mask airway and advanced to the tracheobronchial tree of both lungs. The procedure was accomplished without difficulty. The patient tolerated the procedure well. Findings: The laryngeal mask airway is in good position. The vocal cords appear normal. The subglottic space is normal. The trachea is of normal caliber. The lloyd is sharp. The tracheobronchial tree was examined to at least the first subsegmental level. Bronchial mucosa and anatomy are normal; there are no endobronchial lesions, and no secretions on the right. A nearly obstructing (greater than 90% obstructed) mass was found proximally, at the orifice in the left upper lobe. The mass was large and friable, fungating and polypoid. The lesion was not traversed. Copious, mucopurulent, white secretions were found in the left mainstem bronchus. They were not obstructing the airway. Endobronchial biopsies were performed in the left upper lobe using forceps and sent for histopathology examination following EBUS evaluation. 8 were obtained. Washings were obtained in the left upper lobe and sent for routine cytology. The return was bloody. Multiple specimens were obtained and pooled into one specimen, which was sent for analysis. The scope was withdrawn and replaced with the EBUS bronchoscope to accomplish the ultrasound examination. Lymph Nodes: An endobronchial ultrasound endoscope was utilized to systematically examine the right lower paratracheal region (level 4R) and subcarinal mediastinum (level 7) in order to assist with fine needle aspiration. Lymph node staging was performed via endobronchial ultrasound for suspected lung cancer. - The 4R (lower paratracheal) node was 20 mm by EBUS. - The 7 (subcarinal) node was 50 mm by EBUS. There was a large permeating vessel through the lymph node noted (see picture) Lymph Nodes: Lymph Nodes: An endobronchial ultrasound-guided transbronchial needle aspiration was performed using an Olympus EBUS-TBNA 19 gauge needle and sent for routine cytology. Specimens were obtained from the 4R (lower paratracheal) lymph nodes. Four passes per node were performed. Additional specimens were obtained from the 7 (subcarinal) lymph nodes using an Olympus EBUS-TBNA 19 gauge needle. 7 per node were performed. Rapid On-Site Evaluation (OZ): The cellularity of the specimen was adequate in the right lower paratracheal region (level 4R). The cellularity of the specimen was adequate in the subcarinal mediastinum (level 7). Impression: - Mediastinal adenopathy - Lung mass suspicious for cancer - The airway examination was normal. - A friable, fungating and polypoid mass was found in the left upper lobe. This lesion is likely malignant. - Copious, mucopurulent, white secretions were found in the left mainstem bronchus. - An endobronchial biopsy was performed. - Endobronchial ultrasound was performed. - Systematic lymph node staging was performed. - A transbronchial needle aspiration was performed. - Rapid On-Site Evaluation (OZ): The cellularity of the specimen was adequate in node level 4R and the cellularity of the specimen was adequate in node level 7. Recommendation: - Follow up with bronchoscopist in one week. - The patient was advised to call or return to the clinic if there are signs or symptoms suggesting a complication/adverse reaction from the procedure. - The patient will be observed post-procedure, until all discharge criteria are met. - Await biopsy, cytology and washing results. Procedure Code(s): --- Professional --- 55005, Bronchoscopy, rigid or flexible, including fluoroscopic guidance, when performed; with endobronchial ultrasound (EBUS) guided transtracheal and/or transbronchial sampling (eg, aspiration[s]/biopsy[ies]), one or two mediastinal and/or hilar lymph node stations or structures 41055, Bronchoscopy, rigid or flexible, including fluoroscopic guidance, when performed; with transendoscopic endobronchial ultrasound (EBUS) during bronchoscopic diagnostic or therapeutic intervention(s) for peripheral lesion(s) (List separately in addition to code for primary procedure[s]) Diagnosis Code(s): --- Professional --- R59.0, Localized enlarged lymph nodes R91.8, Other nonspecific abnormal finding of lung field J98.9, Respiratory disorder, unspecified R09.89, Other specified symptoms and signs involving the circulatory and respiratory systems CPT copyright 2017 [employer]. All rights reserved. The codes documented in this report are preliminary and upon tile mechanic helper review may be revised to meet current compliance requirements. MD John Esquivel MD 11/13/2021 2:16:59 PM This report has been signed electronically. Number of Addenda: 0 Note Initiated On: 11/13/2021 11:40 AM
[2021-11-13 14:20] LABS: Cytology, Body Fluid / CSF SEE PATHOLOGY REPORT
[2021-11-13 14:26] LABS: Bedside Glucose 159 mg/dL (74-106)
[2021-11-13] MEDS: Ipratropium/Albuterol Sulfate 3 ML AMPUL.NEB INHALATION (14:58)
== END 2021-11-13 23:59 | disposition home or self-care (01) ==
LOC: EN 10:59 → AC 11:00
PROVIDERS: PCP Internal Medicine; Referring Provider Internal Medicine; Visit Provider Internal Medicine Critical Care Medicine
PROC: BB4BZZZ Ultrasonography of Pleura (ICD-10-PCS; CPT 31625; principal; 2021-11-13 11:30)
DX: C34.12 Malignant neoplasm of upper lobe, left bronchus or lung (principal); I27.20 Pulmonary hypertension, unspecified; E66.01 Morbid (severe) obesity due to excess calories; Z68.41 Body mass index [BMI] 40.0-44.9, adult; E11.9 Type 2 diabetes mellitus without complications; R59.0 Localized enlarged lymph nodes; R09.89 Other specified symptoms and signs involving the circulatory and respiratory systems; R09.02 Hypoxemia; J18.9 Pneumonia, unspecified organism; J90 Pleural effusion, not elsewhere classified; E78.00 Pure hypercholesterolemia, unspecified; E03.9 Hypothyroidism, unspecified; M19.90 Unspecified osteoarthritis, unspecified site; M79.7 Fibromyalgia; Z99.81 Dependence on supplemental oxygen; Z79.82 Long term (current) use of aspirin; Z79.84 Long term (current) use of oral hypoglycemic drugs; Z79.899 Other long term (current) drug therapy; Z86.73 Personal history of transient ischemic attack (TIA), and cerebral infarction without residual deficits
CPT/HCPCS: 31625; 31654; 82962; 87426; 88161; 88172; 88305; 88313; 88341; 88342; 94640; J7120; J3490

== ENCOUNTER → 2021-12-04 | Outpatient (CLI) | payer MEDICARE, BC, SELFPAY ==
--- NOTE | 2021-12-04 | IMM_PTH ---
PATIENT: YING AGUILAR LOC: U#:[id number] AGE/SX: 66/F ROOM: RE12/04/[address]: Dr. Enrique Garcia DO : 1955 BED: DIS: 12/04/2021 SPEC #: [id number] RECD: 12/07/21 12:17 STATUS: HUA REQ #: [id number] DOLORES: 12/04/21 00:[address]: Enrique Garcia DEPT: IMMUNOHISTOCHEMISTRY RECD BY: Jacquelin Cleaning ENTERED: 12/07/21 12:22 SP TYPE: IMMUNO OTHR DR: Dr. Rosaura Carnes DO Tissues: THORACIC FLUID Procedures: Ty Ret (add) CK20 (add) CK5-6 (add) CK7 (add) CK8 (add) MACRO (add) TTF1 (add) Vimentin (add) Pankeratin (initial) P40 (add) PHYSICIAN & INSTITUTION [address] [address] SPECIMEN INFORMATION: Tissue Source: Thoracentesis fluid Clinical Info: Pleural effusion, lung CA Specimen Number: [id number] CPT code: 16313, 50529 x9 METHODOLOGY: Deparaffinized sections of prefer/formalin-fixed tissue or PAP/DQ stained slides are incubated with monoclonal/polyclonal antibodies/oligonucleotide probes. Localization is made via biotin free immunoperoxidase method. Appropriate controls are performed and reacted as expected. Results on target cell population are indicated in the following table: RESULTS: ANTIBODY / CLONE RESULT AE1-3 (AE1/AE3/PCK26) negative * CK7 (OV-TL12/30) negative * CK8 (49twzgR70) negative * CK20 (KS20.8) negative * Vimentin (V9) negative Macro (HAM-56) negative TTF-1 (8G7G3/1) negative CALRET (polyclonal) negative * CK5-6 (D5 & 1684) negative * P40 (BC28) negative *?Positive in mesothelial cells. These tests were developed and their performance characteristics determined by [facility]. They may not have been cleared or approved by the U.S. Food and Drug Administration. The FDA has determined that such clearance or approval is not necessary. The above immunohistochemical/dualISH markers are ordered and reviewed by the Pathologist. INTERPRETATION: Thoracentesis fluid (cell block): Negative for malignant cells. ALYSIA:lyric 12/08/2021
--- NOTE | 2021-12-04 | FLU_PTH ---
PATIENT: YING AGUILAR LOC: [facility]#:[id number] AGE/SX: 66/F ROOM: RE12/04/[address]: Dr. Enrique Garcia DO : 1955 BED: DIS: 12/04/2021 SPEC #: [id number] RECD: 12/04/21 13:01 STATUS: HUA THELMA #: [id number] DOLORES: 12/04/21 00:[address]: Enrique Garcia DEPT: CYTOLOGY RECD BY: Britney Yuen ENTERED: 12/04/21 13:30 SP TYPE: Fluid OTHR DR: Dr. Rosaura Carnes DO Tissues: THORACIC FLUID Procedures: Special Stain Group II Surgery Specimen Level IV Cytospin Fluid HEADER OPERATION: Ultrasound-guided left thoracentesis PRE-OP DIAGNOSIS: Pleural effusion, lung CA TISSUE SUBMITTED: Thoracentesis fluid for cytology DIAGNOSIS CYTOLOGY Thoracentesis fluid for cytology (cytospin and cell block): Negative for malignant cells. See comment. SJ:lyric 12/07/2021 COMMENT Immunohistochemistry ([id number]) supports the above diagnosis. Clinical correlation and appropriate follow up are necessary. Please make reference to previous specimen ([id number]) ESSIE mass, endobronchial biopsy with diagnosis of non-small cell carcinoma, favor squamous cell carcinoma and additional specimen, EBUS fluid washing ([id number]) with diagnosis of positive for malignant cells derived from non-small cell carcinoma, favor squamous cell carcinoma. CYTOLOGY STUDY Slides are reviewed. CYTOLOGY GROSS Received is 90 ml of anirudh cloudy fluid labeled with the patient's name and and designated per the requisition as thoracentesis. Submitted for cytology preparation including cell block. / lyric 12/04/2021 TC:5 CPT: 46969, 38701
--- NOTE | 2021-12-04 11:41 | US_ITS ---
PROCEDURE: ULTRASOUND GUIDED THORACENTESIS. CLINICAL INDICATION: Left pleural effusion. PHYSICIAN: Zeyad Lea MD MEDICATIONS: 1% lidocaine administered subcutaneously for local anesthesia. ACCESS SITE: Left lower thorax, posterior approach. CATHETER: 5 Singaporean thoracentesis needle/catheter system. FLUID: Approximately 460 mL of serous left pleural fluid removed. COMPLICATIONS: None immediate. The risks, benefits, and alternatives to the procedure and sedation were explained to the left. The specific risks of bleeding, infection, and pneumothorax requiring chest tube insertion were discussed and accepted. Written informed consent was obtained. PROCEDURE: Ultrasonographic evaluation of the left lower pleural space was carried out. An adequate pocket was identified. The patient was placed in the sitting, upright position. The overlying skin was prepped and draped in sterile fashion. 1% lidocaine was administered subcutaneously for local anesthesia. Under ultrasound guidance, a 5 Singaporean thoracentesis needle/catheter system was advanced into the left posterior lower pleural fluid collection. The inner stylet was removed and there was spontaneous flow of pleural fluid. Approximately 460 mL of fluid was manually aspirated. The catheter was removed. Hemostasis was achieved and a sterile dressing was applied. A specimen was collected and sent to the laboratory for analysis, as requested by the referring clinician. The patient tolerated the procedure well, without immediate complications. A chest x-ray was ordered. US/Thoracentesis W US IMPRESSION: Successful ultrasound-guided left thoracentesis. Electronically Signed: Alvin Lea MD at 15:51 EDT ,
--- NOTE | 2021-12-04 12:15 | RAD_ITS ---
INDICATION: pnuemothorax -- immediately post thoracentesis EXAMINATION/TECHNIQUE: X-RAY - XR Chest 2 Views COMPARISON: Chest x-ray obtained 10/30/2021 FINDINGS: LINES/DEVICES: None. LUNGS: Circumferential opacification of the right hemithorax is visualized, no evidence of pneumothorax is seen. Cardiomegaly with deviation of the mediastinum to the left is seen. The right hemithorax demonstrates bronchovascular prominence and peribronchial cuffing but no evidence of right pleural effusion is seen. No evidence of right pneumothorax. MEDIASTINUM AND CARDIOVASCULAR STRUCTURES: Cardiac silhouette not enlarged. BONES AND SOFT TISSUES: Unremarkable. RAD/Chest Insp/Exp 2 View IMPRESSION: Cardiomegaly and left lung opacification seen, no evidence of left pneumothorax. Electronically Signed: Alvin Lea MD at 13:13 EDT Reading Location ID and State: [facility] / [place] Tel , Service support ,
[2021-12-04] MEDS: Lidocaine 2% (20 ml mdv) 20 ML Vial INFILT (12:31)
[2021-12-04 15:41] VITALS: BP 122/62; BP 147/53; BP 154/66; BP 164/68; PULSE 58; PULSE 65; PULSE 66; RESP 16; TEMP 36.6; O2SAT 100; O2SAT 97; O2SAT 98
== END | disposition home or self-care (01) ==
LOC: US 11:39
PROVIDERS: PCP Internal Medicine; Referring Provider Internal Medicine Hematology & Oncology; Visit Provider Internal Medicine Hematology & Oncology
DX: J90 Pleural effusion, not elsewhere classified (principal); C34.90 Malignant neoplasm of unspecified part of unspecified bronchus or lung; R79.1 Abnormal coagulation profile
CPT/HCPCS: 32555; 71046; 88108; 88305; 88313; 88341; 88342

== ENCOUNTER → 2022-02-10 | Outpatient (CLI) | payer MEDICARE, BC, SELFPAY ==
--- NOTE | 2022-02-10 | IMM_PTH ---
PATIENT: YING AGUILAR LOC: U#:[id number] AGE/SX: 66/F ROOM: RE02/10/[address]: Dr. Enrique Garcia DO : 1955 BED: DIS: 02/10/2022 SPEC #: [id number] RECD: 02/11/22 13:41 STATUS: HUA REQ #: [id number] DOLORES: 02/10/22 00:[address]: Enrique Garcia DEPT: IMMUNOHISTOCHEMISTRY RECD BY: Jacquelin Cleaning ENTERED: 02/11/22 13:44 SP TYPE: IMMUNO OTHR DR: Dr. Rosaura Carnes DO Tissues: THORACIC FLUID Procedures: Ty Ret (add) CK20 (add) CK5-6 (add) CK7 (add) CK8 (add) MACRO (add) TTF1 (add) Vimentin (add) Pankeratin (initial) P40 (add) PHYSICIAN & INSTITUTION [address] [address] SPECIMEN INFORMATION: Tissue Source: Thoracentesis fluid Clinical Info: Pleural effusion, cancer of trachea, bronchus and lung Specimen Number: [id number] CPT code: 24616, 73787 x9 METHODOLOGY: Deparaffinized sections of prefer/formalin-fixed tissue or PAP/DQ stained slides are incubated with monoclonal/polyclonal antibodies/oligonucleotide probes. Localization is made via biotin free immunoperoxidase method. Appropriate controls are performed and reacted as expected. Results on target cell population are indicated in the following table: RESULTS: ANTIBODY / CLONE RESULT AE1-3 (AE1/AE3/PCK26) negative * CK7 (OV-TL12/30) negative * CK8 (47owarY49) negative * CK20 (KS20.8) negative Vimentin (V9) negative * Macro (HAM-56) negative TTF-1 (8G7G3/1) negative CALRET (polyclonal) negative * CK5-6 (D5 & 1684) negative * P40 (BC28) negative *?Positive in mesothelial cells. These tests were developed and their performance characteristics determined by [facility]. They may not have been cleared or approved by the U.S. Food and Drug Administration. The FDA has determined that such clearance or approval is not necessary. The above immunohistochemical/dualISH markers are ordered and reviewed by the Pathologist. INTERPRETATION: Thoracentesis fluid (cell block): Negative for malignant cells. ALYSIA:lyric 02/12/2022
--- NOTE | 2022-02-10 12:02 | US_ITS ---
PROCEDURE: ULTRASOUND GUIDED THORACENTESIS. DATE: 02/10/2022. INDICATION: Female, 66 years old. Left pleural effusion. PHYSICIAN: Anrold Hernandez M.D. PROCEDURE: The risks, benefits, and alternatives to the procedure were explained to the patient. The specific risks of bleeding, infection, and pneumothorax requiring chest tube insertion were discussed and accepted. Written informed consent was obtained. Ultrasonographic evaluation of the left lower pleural space was carried out. An adequate pocket was identified. The patient was placed in the sitting, upright position. The overlying skin was prepped and draped in sterile fashion. 1% lidocaine was administered subcutaneously for local anesthesia. Under ultrasound guidance, a 5French thoracentesis needle/catheter system was advanced into the left posterior lower pleural fluid collection. Approximately 600 mL of bloody fluid was drained. The catheter was removed, and a sterile dressing was applied. A specimen was collected and sent to the laboratory for analysis, as requested by the referring clinician. The patient tolerated the procedure well. A chest x-ray was ordered. US/Thoracentesis W US IMPRESSION: Ultrasound-guided left thoracentesis. Electronically Signed: Aronld Hernandez MD at 13:16 EDT ,
[2022-02-10 12:12] VITALS: BP 154/64; BP 163/71; BP 170/81; PULSE 79; PULSE 81; PULSE 82; RESP 18; TEMP 36.7; TEMP 36.8; O2SAT 92; O2SAT 97
[2022-02-10] MEDS: Lidocaine 2% (20 ml mdv) 20 ML Vial INFILT (12:20)
--- NOTE | 2022-02-10 12:30 | RAD_ITS ---
STUDY: X-RAY CHEST REASON FOR EXAM: Female, 66 years old. Post thoracentesis TECHNIQUE: AP inspiration and expiration views. COMPARISON: Comparison is made with prior study dated 12/04/2021. FINDINGS: The patient is status post left thoracentesis. There is no evidence of a pneumothorax. Volume loss of the left lung with shift of the heart and mediastinal structures to the left side of the midline. RAD/Chest Insp/Exp 2 View IMPRESSION: No evidence of pneumothorax on the immediate post left thoracentesis views. Loss of volume of the left hemithorax. Electronically Signed: Arnold Hernandez MD at 13:20 EDT ,
--- NOTE | 2022-02-10 12:30 | FLU_PTH ---
PATIENT: YING AGUILAR LOC: [facility]#:[id number] AGE/SX: 66/F ROOM: RE02/10/[address]: Dr. Enrique Garcia DO : 1955 BED: DIS: 02/10/2022 SPEC #: [id number] RECD: 02/10/22 13:06 STATUS: HUA THELMA #: [id number] DOLORES: 02/10/22 12:[address]: Enrique Garcia DEPT: CYTOLOGY RECD BY: Nic Wilder ENTERED: 02/10/22 13:07 SP TYPE: Fluid OTHR DR: Dr. Rosaura Carnes DO Tissues: THORACIC FLUID Procedures: Special Stain Group II Surgery Specimen Level IV Cytospin Fluid HEADER OPERATION: Ultrasound-guided thoracentesis, left PRE-OP DIAGNOSIS: Pleural effusion, cancer of trachea, bronchus and lung TISSUE SUBMITTED: Thoracentesis fluid for cytology DIAGNOSIS CYTOLOGY Thoracentesis fluid for cytology (cytospin and cell block): Negative for malignant cells. See comment. ALYSIA:lyric 02/11/2022 COMMENT Immunohistochemistry ([id number]) supports the above diagnosis. Clinical correlation and appropriate follow up are necessary. Please make reference to previous specimen ([id number]) left upper lung mass, endobronchial biopsy with diagnosis of ?non-small cell carcinoma, favor squamous cell carcinoma.? CYTOLOGY STUDY Slides are reviewed. CYTOLOGY GROSS Received is 100 ml of reddish anirudh cloudy fluid labeled with the patient's name and and designated per the requisition as thoracentesis. Submitted for cytology preparation including cell block. / lyric 02/10/2022 TC:5 CPT: 34561, 37068
[2022-02-10 12:54] LABS: Cytology, Body Fluid / CSF SEE PATHOLOGY REPORT
== END | disposition home or self-care (01) ==
LOC: US 12:01
PROVIDERS: PCP Internal Medicine; Referring Provider Internal Medicine Hematology & Oncology; Visit Provider Internal Medicine Hematology & Oncology
DX: J90 Pleural effusion, not elsewhere classified (principal); C33 Malignant neoplasm of trachea; C34.90 Malignant neoplasm of unspecified part of unspecified bronchus or lung
CPT/HCPCS: 32555; 71046; 88108; 88305; 88313; 88341; 88342

== ENCOUNTER 2022-03-02 12:01 | Inpatient (IN) | payer MEDICARE, BC, SELFPAY ==
[2022-03-02] VITALS (14 sets, daily range): BP systolic 146–175; BP diastolic 69–95; PULSE 72–110; RESP 16–22; TEMP 36.2–36.9; O2SAT 92–100; BMI 45.3; BMI 46.0
--- NOTE | 2022-03-02 12:30 | EKG12_ITS ---
Test Reason : Abdominal pain Blood Pressure : / mmHG Vent. Rate : 095 BPM Atrial Rate : 095 BPM P-R Int : 160 ms QRS Dur : 074 ms QT Int : 382 ms P-R-T Axes : 074 086 080 degrees QTc Int : 480 ms Sinus rhythm with Premature atrial complexes with Aberrant conduction Possible Left atrial enlargement Borderline ECG Confirmed by VIOLETTE RAY, LOVELY ([id number]), editor farm journal MANOJ BUTLER ([id number]) on 03/05/2022 7:57:19 AM Referred By: Alicia Confirmed By:LOVELY OAKES MD
[2022-03-02] MEDS: Ondansetron 4 MG/2 ML Vial IV ×2 (13:02→21:47)
[2022-03-02] MEDS: fentaNYL 100 MCG/2 ML Ampul 50 MCG IV ×2 (13:03→14:56)
[2022-03-02] MEDS: 0.9% Normal Saline 1,000 ML 1000 ML IV (13:04)
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
[2022-03-02 13:15] LABS: Absolute Lymphocyte Count 1.37 X10^3/uL (0.83-4.51); Absolute Neutrophil Count 15.2 X10^3/uL (2.0-7.7); Basophil# 0.04 X10^3/uL; Basophil% 0.2 % (0-1); Hematocrit 40.8 % (37-47); Hemoglobin 13.3 g/dL (12.0-15.0); Lymphocyte # 1.37 X10^3/ul (0.83-4.51); Lymphocyte % 7.4 % (19-41); Mean Corp Hgb Conc 32.6 g/dL (32-36); Mean Corpuscular Hgb 30.1 pg (27.0-32.0); Mean Corpuscular Volume 92.3 fL (81-99); Mean Platelet Vol. 9.6 fl (6.2-12.0); Monocyte% 9.7 % (0-10); NRBC Flagged by Analyzer 0 % (0-5); Neutrophil # 15.22 X10^3/uL (2.7-7.7); Neutrophil % 81.9 % (47-70); POSITIVE DIFFERENTIAL YES; Platelet Count 255 K/mm3 (150-450); RBC Distribution Width SD 55.8 fl (35.1-43.9); Red Blood Count 4.42 M/mm3 (4.2-5.4); White Blood Count 18.6 K/mm3 (4.4-11.0)
[2022-03-02 13:19] LABS: Differential Indicated SCAN CRITERIA MET
[2022-03-02 13:36] LABS: ALB/GLOB Ratio 0.8 RATIO (0.9-2.4); AST(SGOT) 22 U/L (15-37); Alanine Aminotransfer ALT/SGPT 31 U/L (13-56); Albumin, Serum 3.3 g/dL (3.2-5.0); Alkaline Phosphatase 95 U/L (45-117); Anion Gap 6 (5-15); BUN 15 mg/dL (7-18); BUN/Creat Ratio 26.3 RATIO (10-20); Chloride 99 mmol/L (98-107); Creatinine, Serum 0.57 mg/dL (0.55-1.02); EST Glomerular Filtration Rate 112 mL/min (>60); Est Glom Filt Rate - Afr Amer 135 mL/min (>60); Estimated Creatinine Clearance 40.63 ml/min; Globulin 3.9 g/dL (2.2-4.2); Glucose 181 mg/dL (74-106); Lipase 24 U/L (73-393); Potassium 3.3 mmol/L (3.5-5.1); Protein, Total 7.2 g/dL (6.4-8.2); Sodium Level 139 mmol/L (136-145); Troponin-I HS 13 pg/mL (3.0-54.0)
[2022-03-02 13:52] LABS: Lactic Acid 1.6 mmol/L (0.4-1.9)
[2022-03-02 13:54] LABS: Mucous, Urine 0 SEEN /hpf (<or=2+); Red Blood Cells-Urine 0 SEEN /hpf (0-5)
[2022-03-02 13:57] LABS: Color, Urine Yellow (Yellow); Glucose, Dipstick Normal (Normal); Ketone-Dipstick Negative (Negative); Leukocyte Esterase-Dipstick 25 /ul (Negative); Nitrite-Dipstick Negative (Negative); Occult Blood-Urine 50 /ul (Negative); Protein-Dipstick 500 mg/dl (Negative); Urine Bilirubin Dipstick Negative (Negative); Urine Clarity Cloudy (Clear); Urine Urobilinogen 1 mg/dl (Normal)
[2022-03-02 13:59] LABS: Differential Comment SCANNED
--- NOTE | 2022-03-02 14:06 | CT_ITS ---
STUDY: CT ABDOMEN AND PELVIS WITH CONTRAST REASON FOR EXAM: Female, 66 years old. Abdominal pain, hernia, n/v RADIATION DOSAGE (If Supplied By Facility): CTDIvol = ( 15.91 ) mGy, DLP = ( 1105.17 ) mGycm TECHNIQUE: Transaxial images were obtained from the dome of the diaphragm to the symphysis pubis without oral contrast. IV 100mL [id number]-300 was administered. Sagittal and coronal images were reconstructed. Individualized dose optimization techniques were used for this CT. COMPARISON: None. FINDINGS: Small left pleural effusion with left basilar atelectasis. Coronary artery calcification. There is decreased attenuation of the liver consistent with steatosis. Small amount of perihepatic fluid along its inferior margin. There are surgical clips in the gallbladder fossa consistent with a prior cholecystectomy. The spleen is decreased size. Several small splenules are seen in the left upper quadrant. Normal pancreas. There is a 3.6 cm x 3.1 cm soft tissue nodule in the right adrenal gland. This is not an adenoma. Correlation with MRI is recommended. Normal right kidney. Punctate nonobstructive calculus in the upper pole of the left kidney. Fluid-filled stomach. Small hiatal hernia. Mildly fluid-filled dilated small bowel loops. Increased markings in the mesenteric fat. Early small bowel obstruction should be ruled out. Normal colon. The appendix is visualized and appears normal. There is scattered atherosclerotic calcification of the abdominal aorta, without a demonstrated aneurysm. Normal inferior vena cava. Normal retroperitoneum. Normal urinary bladder. There is absence of the uterus consistent with a prior hysterectomy. Large anterior ventral hernia containing small bowel loops and a portion of the transverse colon. The neck of the hernia measures 5.6 cm. There are degenerative changes of the visualized lumbar spine. CT/Abdomen/Pelvis W IV Cont ONLY IMPRESSION: A large midline anterior abdominal wall hernia containing small bowel loops and a portion of the transverse colon. Mildly dilated fluid-filled small bowel loops. This may represent an early small bowel obstruction. 3.6 cm x 3.1 cm soft tissue mass in the right adrenal gland. Electronically Signed: Arnold Hernandez MD at 14:25 EDT ,
--- NOTE | 2022-03-02 14:08 | NURSING ---
DR DE SOUZA PAGEGarrett
[2022-03-02 14:09] LABS: Bacteria 4+ /hpf (None Seen); White Blood Cells 5-10 SEEN /hpf (0-5)
[2022-03-02 14:10] LABS: Squamous Epithelial Cells - UA 0-5 SEEN /hpf (5-10)
[2022-03-02] MEDS: Famotidine 200 MG/20 ML MDV 20 MG in 0.9% Normal Saline (Pres. free 8 ML 300 MG IV (14:18)
--- NOTE | 2022-03-02 14:48 | NURSING ---
SURGERY [facility]
[2022-03-02] MEDS: Oxymetazoline 0.05% 1 SPRAY SPRAY.BTL 2 SPRAY NASAL (14:57)
--- NOTE | 2022-03-02 14:57 | PCM.HP.STD ---
[facility] Date of Service: 03/02/22 Chief Complaint: Abdominal pain, nausea, vomiting [facility] Narrative YING AGUILAR, is a 66 F who presents with a 2 day history of nausea, vomiting and worsening abdominal pain. Patient is currently undergoing chemotherapy and radiation for metastatic lung cancer. She notes she was diagnosed with lung cancer in October of 2021 when she presented to the ED with increased shortness of breath. She states her last chemotherapy was 1 month ago and her last radiation was 1 week ago. She is scheduled for a follow-up appointment with Dr. Garcia/Dr. Khan on . Patient states the mass is non-resectable. Her son, who is also present in the room, states that the lung mass is collapsing her lung due to the size of the mass. She is currently on 2 liters of oxygen 24 hours a day. She follows with Dr. Ag. She noted nausea and vomiting started on Tuesday evening. She noted the abdominal pain started after the vomiting initiated. She states she has loose stools however she thought this was due to radiation. She notes her last bowel movement was on Tuesday. She states she has not had an appetite the last 2 days and has not been able to keep any food down even if she wanted to. She was unaware she even had a hernia. She knew she had a lump in her abdomen, however never knew it was a hernia. She has never had a hernia repair previously, however she has had a splenectomy in 1997, previous cholecystectomy, appendectomy and total hysterectomy. She denies a cardiac history or seeing a economics consultant. She notes a history of a stroke with residual right upper/lower side weakness. She states she is on a daily aspirin. She denies previous history of blood clots. CT scan of the ab/pel demonstrated: FINDINGS: Small left pleural effusion with left basilar atelectasis.? Coronary artery calcification. There is decreased attenuation of the liver consistent with steatosis. Small amount of perihepatic fluid along its inferior margin.? There are surgical clips in the gallbladder fossa consistent with a prior cholecystectomy.? The spleen is decreased size.? Several small splenules are seen in the left upper quadrant.? Normal pancreas. There is a 3.6 cm x 3.1 cm soft tissue nodule in the right adrenal gland. This is not an adenoma.? Correlation with MRI is recommended. Normal right kidney.? Punctate nonobstructive calculus in the upper pole of the left kidney. Fluid-filled stomach.? Small hiatal hernia.? Mildly fluid-filled dilated small bowel loops.? Increased markings in the mesenteric fat.? Early small bowel obstruction should be ruled out.? Normal colon.? The appendix is visualized and appears normal. There is scattered atherosclerotic calcification of the abdominal aorta, without a demonstrated aneurysm.? Normal inferior vena cava.? Normal retroperitoneum. Normal urinary bladder.? There is absence of the uterus consistent with a prior hysterectomy. Large anterior ventral hernia containing small bowel loops and a portion of the transverse colon.? The neck of the hernia measures 5.6 cm.? There are degenerative changes of the visualized lumbar spine. Patient also has a WBC of 18.6. [facility] Medical History Abnormal echocardiogram Acute respiratory failure with hypoxia Ambulates with cane Anxiety Arthritis Asthma Benign essential hypertension Bladder disease Cancer Cardiac murmur Cardiology follow-up encounter Chronic osteoarthritis CVA (cerebral vascular accident) Depression Diabetes Dietary restriction Fibromyalgia Former smoker High cholesterol History of asthma History of echocardiogram History of pain when walking History of rheumatic fever History of steroid therapy History of stress test Hyperlipidemia Hypertension Hypothyroidism Kidney stones Leukemia in remission Lung mass Nontoxic uninodular goiter On home oxygen therapy Shortness of breath on exertion Sleep apnea Stroke/cerebrovascular accident Type II diabetes mellitus Wears dentures Wears glasses Home Medications albuterol sulfate 90 mcg/actuation aerosol inhaler (Proventil HFA) 2 puff inhalation Q4H PRN SOB 04/06/18 [History Last Taken 11/05/21] aspirin 81 mg tablet,delayed release 81 mg PO DAILY heart health 04/06/18 [History Last Taken 11/09/21] atorvastatin 80 mg tablet 80 mg PO DAILY cholesterol 04/06/18 [History Last Taken 11/05/21] escitalopram oxalate 20 mg tablet (Lexapro) 20 mg PO DAILY mental health 04/06/18 [History Last Taken 11/05/21] fluticasone propionate 50 mcg/actuation nasal spray,suspension (Allergy Relief (fluticasone)) 1 spray intranasal DAILY allergies 04/06/18 [History Last Taken 11/05/21] glimepiride 4 mg tablet (Amaryl) 4 mg PO QAM diabetes 04/06/18 [History Last Taken 11/05/21] levothyroxine 175 mcg tablet 175 mcg PO SUMOTUWETHFR THYROID 04/06/18 [History Last Taken 11/05/21] oxybutynin chloride 15 mg tablet,extended release 24 hr 15 mg PO DAILY bladder 04/06/18 [History Last Taken 11/05/21] lisinopril 10 mg-hydrochlorothiazide 12.5 mg tablet 1 tab PO BID blood pressure 04/13/18 [History Last Taken 11/05/21] levothyroxine 175 mcg tablet 350 mcg PO SA THYROID 11/06/21 [History Last Taken 10/31/21] metformin 500 mg tablet 500 mg PO DAILY DM 11/06/21 [History Last Taken 11/09/21] lorazepam 0.5 mg tablet 0.5 mg PO BID PRN Anxiety 11/19/21 [History Last Taken Unknown] Allergy/AdvReac Type Severity Reaction Status Date / Time potassium Allergy Other Verified 03/02/22 12:03 loratadine [From Claritin] AdvReac Severe Nausea Verified 11/19/21 09:11 acetaminophen AdvReac Unknown Unknown Verified 11/19/21 09:11 [From Darvocet-N 100] celecoxib [From Celebrex] AdvReac Unknown Unknown Verified 11/19/21 09:11 meperidine [From Demerol] AdvReac Unknown Unknown Verified 11/19/21 09:11 morphine AdvReac Unknown Unknown Verified 11/19/21 09:11 Penicillins AdvReac Unknown Unknown Verified 11/19/21 09:11 propoxyphene AdvReac Unknown Unknown Verified 11/19/21 09:11 [From Darvocet-N 100] Family History Father Heart disease Sister Heart disease COPD (chronic obstructive pulmonary disease) Brother COPD (chronic obstructive pulmonary disease) Surgical History History of cholecystectomy History of splenectomy History of thyroidectomy, total History of total hysterectomy Hx of appendectomy Social History Smoking Status: Former smoker Tobacco: How many years used: 40 Electronic Cigarette Use: not used second hand exposure: No alcohol intake: current details: rare substance use type: does not use ROS Constitutional Constitutional: Reports systems reviewed and no addt'l complaints, except as documented Eyes Eyes: Reports systems reviewed and no addt'l complaints, except as documented ENT HEENT: Reports systems reviewed and no addt'l complaints, except as documented Cardiovascular Cardiovascular: Reports systems reviewed and no addt'l complaints, except as documented Respiratory/Chest Respiratory/Chest: Reports systems reviewed and no addt'l complaints, except as documented Gastrointestinal Gastrointestinal: Reports systems reviewed and no addt'l complaints, except as documented Genitourinary Genitourinary: Reports systems reviewed and no addt'l complaints, except as documented Musculoskeletal Musculoskeletal: Reports systems reviewed and no addt'l complaints, except as documented Integumentary Integumentary: Reports systems reviewed and no addt'l complaints, except as documented Neurologic Neurologic: Reports systems reviewed and no addt'l complaints, except as documented Psychiatric Psychiatric: Reports systems reviewed and no addt'l complaints, except as documented Endocrine Endocrinology: Reports systems reviewed and no addt'l complaints, except as documented Hematologic/Lymphatic Hematologic/Lymphatic: Reports systems reviewed and no addt'l complaints, except as documented Allergic/Immunologic Allergic/Immunologic: Reports systems reviewed and no addt'l complaints, except as documented Vital Signs Vital Signs Vital Signs: 03/02/22 12:01 Temperature 97.1 F L Temperature Source Temporal Pulse Rate 72 Respiratory Rate 18 Blood Pressure 165/94 H Blood Pressure Mean 117 Pulse Ox 92 Oxygen Delivery Method Nasal Cannula Oxygen Flow Rate (L/min) 2 Weight Weight: 240 lb Body Mass Index (BMI) 45.3 Physical Exam Const alert and oriented x3 General Appearance: ill appearing HEENT normocephalic HEENT Narrative: Nasal canula intact Eyes PERRL Neck full ROM Chest Chest Narrative: No port noted Resp clear to auscultation bilaterally Effort and Inspection: able to speak in complete sentences Auscultation: diminished lung sounds bilateral throughout Cardio Rate: regular rate Rhythm: regular rhythm GI GI Narrative: Large midline previous incision from splenectomy- adjacent to the left of the incision is a large, nonreducible hernia. Tenderness within the hernia region. Hypoactive bowel sounds. Obese abdomen. no CVA tenderness Back/Spine no CVA tenderness Extremity normal to inspection Skin no rashes or lesions noted Neuro no focal motor deficits and no sensory deficits noted Psych mental status grossly normal and thought process normal Results Lab / Micro Data Result Diagrams: 03/02/22 13:00 03/02/22 13:00 Labs: Laboratory Results - last 24 hr 03/02/22 13:00: WBC 18.6 H, RBC 4.42, Hgb 13.3, Hct 40.8, MCV 92.3, MCH 30.1, MCHC 32.6, RDW Std Deviation 55.8 H, RDW Coeff of Kathy 17.0 H, Plt Count 255, MPV 9.6, Immature Gran % (Auto) 0.800, Neut % (Auto) 81.9 H, Lymph % (Auto) 7.4 L, Dyer % (Auto) 9.7, Eos % (Auto) 0.0, Baso % (Auto) 0.2, Absolute Neuts (auto) 15.2 H, Absolute Lymphs (auto) 1.37, Nucleated RBC % 0, Differential Comment SCANNED, Diff Path Review December foll 03/02/22 13:00: Sodium 139, Potassium 3.3 L, Chloride 99, Carbon Dioxide 34.0 H, Anion Gap 6, BUN 15, Creatinine 0.57, Estim Creat Clear Calc 40.63, Est GFR (MDRD) Af Amer 135, Est GFR (MDRD) Non-Af 112, BUN/Creatinine Ratio 26.3 H, Glucose 181 H, Calcium 9.0, Total Bilirubin 0.80, AST 22, ALT 31, Alkaline Phosphatase 95, Troponin I High Sens 13, Total Protein 7.2, Albumin 3.3, Globulin 3.9, Albumin/Globulin Ratio 0.8 L, Lipase 24 L 03/02/22 13:00: Lactic Acid 1.6 03/02/22 13:51: Urine Color Yellow, Urine Clarity Cloudy, Urine pH 6.0, Ur Specific Downs 1.020, Urine Protein 500 H, Urine Glucose (UA) Normal, Urine Ketones Negative, Urine Occult Blood 50 H, Urine Nitrite Negative, Urine Bilirubin Negative, Urine Urobilinogen 1 H, Ur Leukocyte Esterase 25 H, Urine RBC 0 SEEN, Urine WBC 5-10 SEEN, Ur Squamous Epith Cells 0-5 SEEN, Urine Bacteria 4+, Urine Mucus 0 SEEN Rhythm Strip Rhythm Strip: Sinus Rhythm Rate: 95 Ectopy: None Radiology Impression Abdomen/Pelvis CT 03/02/22 14:06 IMPRESSION: A large midline anterior abdominal wall hernia containing small bowel loops and a portion of the transverse colon. Mildly dilated fluid-filled small bowel loops. This may represent an early small bowel obstruction. 3.6 cm x 3.1 cm soft tissue mass in the right adrenal gland. Electronically Signed: Arnold Hernandez MD at 14:25 EDT , Assessment & Plan Assessment/Plan (1) Incarcerated incisional hernia: PLAN: I have evaluated this patient in conjunction with Dr. Avery, who will independently evaluate this patient. Dr. Avery will plan to perform an exploratory laparotomy with ventral incisional hernia repair with possible mesh, possible bowel resection. Procedure details, risks and benefits have been explained to the patient and her son. Patient is agreeable to surgery. Patient is at high-risk for being placed on the ventilator post-operatively. Recommending patient have an NG tube placed. Patient's Potassium is low and will need replaced prior to surgery. Pre-op antibiotics will be ordered. EKG was completed and demonstrated normal sinus rhythm with PAC's. Patient has been vaccinated against COVID 19 and has not been exposed to anyone with COVID within the last month. Patient and her son have had the opportunity to ask and have questions answered. Patient verbally understands and agrees with the plan. Patient knows she will be admitted following the procedure. Thank you for allowing us to participate in the patient's care. Charges/Coding Visit Charges Inpatient E&M: 47160 Init Hosp L2
--- NOTE | 2022-03-02 15:25 | RAD_ITS ---
STUDY: X-RAY CHEST REASON FOR EXAM: Female, 66 years old. Preop -- er TECHNIQUE: Single AP portable view of the chest. COMPARISON: Comparison is made with prior study dated 02/10/2022. FINDINGS: An orogastric tube is seen with the tip below the left hemidiaphragm. EKG electrodes are seen. Stable opacification of the left hemithorax. The right lung is clear. Normal size heart. Normal mediastinum and gila. Normal visualized pulmonary arteries. Normal visualized aortic arch and descending thoracic aorta. There are diffuse degenerative changes of the visualized thoracic spine. Normal visualized ribs, clavicles, and shoulders. There is no demonstrated abnormality of the visualized soft tissue structures of the upper abdomen. RAD/Chest 1 View (Portable) IMPRESSION: The tip of the orogastric tube is below the left hemidiaphragm. Stable opacification of the left hemithorax. Electronically Signed: Arnold Hernandez MD at 15:41 EDT ,
--- NOTE | 2022-03-02 15:25 | RAD_ITS ---
STUDY: X-RAY - ABDOMEN/PELVIS REASON FOR EXAM: Female, 66 years old. NG tube placement -- KUB with both diaphragms for NG/OG Verification TECHNIQUE: Single AP view of the abdomen / pelvis. COMPARISON: None. FINDINGS: The tip of the nasogastric tube is in the body of the stomach. RAD/Abdomen Single View (Portable) IMPRESSION: The tip of the nasogastric tube is in the body of the stomach. Electronically Signed: Arnold Hernandez MD at 15:46 EDT ,
--- NOTE | 2022-03-02 15:45 | HERN_PTH ---
PATIENT: YING AGUILAR LOC: MS3 U#:[id number] AGE/SX: 66/F ROOM: [facility] RE03/03/[address]: Dr. Dorota Avery MD : [id number] BED: 1 DIS: 03/05/2022 SPEC #: [id number] RECD: 03/03/22 10:45 STATUS: HUA REQ #: [id number] DOLORES: 03/02/22 15:[address]: Dorota Avery DEPT: SURGICAL PATHOLOGY RECD BY: Britney Yuen ENTERED: 03/03/22 11:02 SP TYPE: Hernia OTHR DR: DO Dr. Matt Jama MD Tissues: HERNIA Procedures: Surgery Specimen Level II HEADER OPERATION: Exploratory laparotomy, extensive lysis of adhesions PRE-OP DIAGNOSIS: Incarcerated incisional hernia TISSUE SUBMITTED: Hernia sac MICROSCOPIC DIAGNOSIS Incisional hernia sac, herniorrhaphy: Fibrosis and associated mild chronic inflammation. AM:lyric 03/04/2022 MICROSCOPIC DESCRIPTION Slides are reviewed. GROSS DESCRIPTION Received in fixative is one container labeled with the patient's name and designated hernia sac. The specimen consists of two irregular fragments of pink-hoff fibrofatty tissue that in aggregate measure 11 x 8 x 2 cm. Serial sections do not reveal mass lesions. Scaler sections are submitted in one cassette. / AM:lyric 03/03/2022 TC:5 CPT: 49517
[2022-03-02] MEDS: Ciprofloxacin 400 MG/200 ML BAG 200 MG IV (16:00)
[2022-03-02] MEDS: metroNIDAZOLE 500 MG/100 ML BAG 100 MG IV (16:27)
[2022-03-02] MEDS: Potassium Chloride 10mEq/100mL 10 MEQ/100 ML IV.SOLN. 100 MEQ IV BOLUS ×2 (17:00→20:00)
--- NOTE | 2022-03-02 18:39 | OP.PCM_ITS ---
Report of Operation Date of Procedure: 03/02/22 Pre-Operative Diagnosis: Incarcerated ventral hernia Post-Operative Diagnosis: Incarcerated ventral hernia Surgery/Procedure Performed:: Exploratory laparotomy, extensive lysis of adhesions, ventral hernia repair, placement of retention sutures Surgeon: Dorota Avery Type of Anesthesia: General/Supplemental Anesthesiologist: Kaylyn Cat Special Medications: Cipro 400 mg IV x1, Flagyl 500 mg IV x1 Specimen's removed: Hernia sac Estimated Blood Loss (mL): <20 cc Fluids Replaced: Per anesthesia Description of Procedure: Patient was brought to the operating placed supine on operating table. A timeout was completed verifying correct patient, procedure, site, positioning, special, prior to beginning procedure. General anesthesia was induced. Patel catheter was placed. Abdomen was prepped draped in usual sterile fashion. Midline incision was made with the 10 blade scalpel overlying the ventral hernia. This deepened with electrocautery. The hernia was identified there was small bowel contents as well as transverse colon which were all viable and reduced back into the abdomen. Extensive lysis of adhesion was done for over an hour in order to be able to reduce the bowel. Hernia sac was excised. Hernia defect was about 7 cm x 4 cm. This was closed with 4 [id number] 2 Prolene as well as two 2 Ethibond retention sutures. 15 Bengali DAYRON round was placed in the subcutaneous space. DAYRON was sutured with 3-0 nylon suture. Incision was closed with interrupted subdermal 3-0 Vicryl sutures and skin alee. Telfa and 4 x 4's were placed. Patient was extubated. Patient tolerated procedure well and sent to postanesthesia care unit in stable condition. Complications none
--- NOTE | 2022-03-02 19:11 | PCM.PN.HOSP ---
Mony Sykes Is a 66-year-old white female who presented to the emergency department at [facility] on 03/02/2022 with abdominal pain, nausea, no vomiting but had been going on for the past few days. Her pain was predominantly upper abdomen. She reported she had also been constipated and her last bowel bowel movement was 2 days prior to presentation. She was unclear if she had passed flatus but noted she was belching a lot more. She reported she is really not been able to keep anything down nutritionally via supplements or fluids. She denied any hematemesis or hematochezia/melena. 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 She reported her abdomen felt slightly distended. She had been taking Zofran and Phenergan without any relief of symptoms. She is currently undergoing radiation and chemotherapy for the left lung/mediastinal mass which is squamous cell carcinoma. She has a remote history of tobacco abuse. She has been on carboplatinum and paclitaxel and follows with Dr. Garcia for this. I evaluated her postoperatively in the PACU and her history was somewhat limited as she was still on supplemental oxygen and quite groggy. Objective Data Objective Data Vital Signs: Vital Signs Temp Pulse Resp BP Pulse Ox O2 Del Method O2 Flow Rate 97.9 F 98 20 H 162/80 H 97 Nasal Cannula 4 03/02/22 16:08 03/02/22 16:08 03/02/22 16:08 03/02/22 16:08 03/02/22 16:08 03/02/22 16:08 03/02/22 16:08 Oxygen Flow Rate (L/min) 4 Oxygen Delivery Method Nasal Cannula Weight: 108.862 kg Body Mass Index (BMI) 45.3 Intake & Output: Intake and Output for Last 24 Hours 02/28/22 03/01/22 03/02/22 23:59 23:59 23:59 Intake Total 1410 / 1410 Output Total 100 / 100 Balance 1310 / 1310 Lab / Micro Data Result Diagrams: 03/02/22 13:00 03/02/22 13:00 Labs: Laboratory Results - last 24 hr 03/02/22 13:00: WBC 18.6 H, RBC 4.42, Hgb 13.3, Hct 40.8, MCV 92.3, MCH 30.1, MCHC 32.6, RDW Std Deviation 55.8 H, RDW Coeff of Kathy 17.0 H, Plt Count 255, MPV 9.6, Immature Gran % (Auto) 0.800, Neut % (Auto) 81.9 H, Lymph % (Auto) 7.4 L, Lee % (Auto) 9.7, Eos % (Auto) 0.0, Baso % (Auto) 0.2, Absolute Neuts (auto) 15.2 H, Absolute Lymphs (auto) 1.37, Nucleated RBC % 0, Differential Comment SCANNED, Diff Path Review December foll 03/02/22 13:00: Sodium 139, Potassium 3.3 L, Chloride 99, Carbon Dioxide 34.0 H, Anion Gap 6, BUN 15, Creatinine 0.57, Estim Creat Clear Calc 40.63, Est GFR (MDRD) Af Amer 135, Est GFR (MDRD) Non-Af 112, BUN/Creatinine Ratio 26.3 H, Glucose 181 H, Calcium 9.0, Total Bilirubin 0.80, AST 22, ALT 31, Alkaline Phosphatase 95, Troponin I High Sens 13, Total Protein 7.2, Albumin 3.3, Globulin 3.9, Albumin/Globulin Ratio 0.8 L, Lipase 24 L 03/02/22 13:00: Lactic Acid 1.6 03/02/22 13:51: Urine Color Yellow, Urine Clarity Cloudy, Urine pH 6.0, Ur Specific [place] 1.020, Urine Protein 500 H, Urine Glucose (UA) Normal, Urine Ketones Negative, Urine Occult Blood 50 H, Urine Nitrite Negative, Urine Bilirubin Negative, Urine Urobilinogen 1 H, Ur Leukocyte Esterase 25 H, Urine RBC 0 SEEN, Urine WBC 5-10 SEEN, Ur Squamous Epith Cells 0-5 SEEN, Urine Bacteria 4+, Urine Mucus 0 SEEN Radiography Diagnostic Testing: Radiology Impression Abdomen/Pelvis CT 03/02/22 14:06 IMPRESSION: A large midline anterior abdominal wall hernia containing small bowel loops and a portion of the transverse colon. Mildly dilated fluid-filled small bowel loops. This may represent an early small bowel obstruction. 3.6 cm x 3.1 cm soft tissue mass in the right adrenal gland. Electronically Signed: Arnold Hernandez MD at 14:25 EDT , Chest X-Ray 03/02/22 15:25 IMPRESSION: The tip of the orogastric tube is below the left hemidiaphragm. Stable opacification of the left hemithorax. Electronically Signed: Arnold Hernandez MD at 15:41 EDT , KUB X-Ray 03/02/22 15:25 IMPRESSION: The tip of the nasogastric tube is in the body of the stomach. Electronically Signed: Arnold Hernandez MD at 15:46 EDT , Rhythm Strip Rhythm Strip: Sinus Rhythm Rate: 95 Ectopy: None Physical Exam Const Constitutional Narrative: Groggy, morbidly obese white female, currently on nonrebreather, appears comfortable and nontoxic, will awake and interact and answers questions appropriately but appears quite fatigued HEENT head/scalp atraumatic, moist oral mucous membranes and oropharynx normal HEENT Narrative: Dentition is poor, Mallampati is 2-3, no thrush Resp normal respiratory effort, no retractions, no use of accessory muscles and clear to auscultation bilaterally Resp Narrative: Few scattered end expiratory wheezes, diffusely diminished no rales or rhonchi Cardio regular rate, regular rhythm, S1 normal heart sound, S2 normal heart sound, no murmurs, no rub, no gallops, no clicks and no JVD GI GI Narrative: Bowel sounds are hypoactive, abdominal binder in place with postop dressing having no drainage, DAYRON drain with serosanguineous drainage, soft and nondistended, diffuse tenderness Extremity Extremity Narrative: Trace bilateral lower extremity edema, no cyanosis or clubbing Skin no rashes or lesions noted, no wounds, skin turgor normal, no jaundice, no petechiae and no mottling Skin Narrative: Left upper shoulder IV in place Neuro moves all extremities and no focal motor deficits Neuro Narrative: Response time is somewhat slow as she has still has medications on board from anesthesia Psych Psych Narrative: Patient is quite groggy and difficult to assess Assessment & Plan Assessment/Plan (1) Ventral hernia, unspecified, with obstruction: (2) Incarcerated incisional hernia: (3) Leukocytosis: (4) Hypokalemia: (5) Bacteriuria: PLAN: Plan Incarcerated Incisional Hernia -Postop day 0 ex lap with extensive VICKY, ventral hernia repair, replacement of retention to sutures -Management per primary -N.p.o. -DAYRON drain in place Leukocytosis -Suspect reactive -Patient was given preoperative Cipro and Flagyl -Repeat CBC in a.m. Hypokalemia -Patient has a documented potassium allergy and unable to clarify with her at this time what that allergy is -Will have to clarify tomorrow when she is more lucid -Check a.m. BMP and magnesium level Bacteriuria -UA shows bacteria 4+ however minimal white Cells, no nitrite and only small amounts of leukoesterase -Unable to get a clear history from the patient with regards to urinary symptoms she was fairly groggy -Currently with a Patel in place -Monitor Squamous cell carcinoma -Patient sees Dr. Garcia -Bronchoscopy from 11/13/2021 showed fungating obstruction of the left upper lobe bronchus -She has been on cisplatin and paclitaxel -Has required thoracentesis previously -No current issues -Monitor need for supplemental oxygen -Has tobacco abuse history but quit Debility -Monitor for therapy services consultations needs -Unclear what her baseline is although there is documentation that she ambulates with a cane DM-2 -Hold glimepiride -Hold metformin -Start sliding scale insulin every 6 hours -Accu-Cheks every 6 Hypothyroidism -Continue home levothyroxine per general surgery's orders History of stroke -Hold aspirin while n.p.o. Hyperlipidemia -Hold atorvastatin while n.p.o. Hypertension -Home antihypertensives ordered by general surgery -As needed hydralazine for systolic blood pressure greater than 10 Urinary incontinence -Hold oxybutynin Anxiety/depression -Hold home Lexapro/Ativan while n.p.o. -Patient does not take scheduled Ativan and its ordered as needed at baseline therefore do not feel we need to cover her with for withdrawal Morbid obesity -Recommend weight loss -Complicates treatment, prognosis, outcomes DVT prophylaxis -SCDs -Chemoprophylaxis per surgery CODE STATUS Full code Charges/Coding Visit Charges OBSV E&M: 33593 Initial observation care L2
[2022-03-02 20:40] LABS: Bedside Glucose 143 mg/dL (74-106)
[2022-03-02] MEDS: Ketorolac 15 MG/ML Vial IV (21:47)
[2022-03-02] MEDS: Lactated Ringers 1,000 ML 100 ML IV (21:48)
[2022-03-02] MEDS: Lisinopril 10 MG Tablet PO (21:49)
[2022-03-02] MEDS: hydroCHLOROthiazide 12.5mg 12.5 MG PO (21:49)
[2022-03-03] MEDS: BENZOCAINE/MENTHOL 1 LOZENGE MUCOUS MEM ×2 (00:15→11:42)
[2022-03-03] MEDS: Nystatin Powder 15gm Bottle 1 APPLIC TOPICAL ×3 (00:43→23:09)
[2022-03-03] MEDS: Menthol/Lanolin/Calamine/Znox 113 GM Tube 1 APPLIC TOPICAL ×3 (00:43→23:10)
[2022-03-03 02:10] VITALS: BP 143/77; PULSE 93; RESP 16; TEMP 36.8; O2SAT 94
[2022-03-03] MEDS: Ketorolac 15 MG/ML Vial IV (03:45)
[2022-03-03] MEDS: 0.9% Saline Lock 10 ML Syringe IV (03:45)
[2022-03-03 05:04] LABS: Bedside Glucose 131 mg/dL (74-106)
[2022-03-03] MEDS: Acetaminophen 325 MG Tablet 650 MG PO (05:44)
[2022-03-03] MEDS: Levothyroxine 175 MCG Tablet PO (05:44)
[2022-03-03 05:56] LABS: Bedside Glucose 134 mg/dL (74-106)
[2022-03-03 06:59] LABS: Absolute Lymphocyte Count 0.87 X10^3/uL (0.83-4.51); Absolute Neutrophil Count 11.4 X10^3/uL (2.0-7.7); Basophil# 0.04 X10^3/uL; Basophil% 0.3 % (0-1); Eosinophil# 0.03 X10^3/uL; Eosinophils% 0.2 % (0-5); Hematocrit 35.3 % (37-47); Hemoglobin 11.3 g/dL (12.0-15.0); Lymphocyte # 0.87 X10^3/ul (0.83-4.51); Lymphocyte % 6.3 % (19-41); Mean Corpuscular Hgb 30.4 pg (27.0-32.0); Mean Corpuscular Volume 94.9 fL (81-99); Mean Platelet Vol. 9.5 fl (6.2-12.0); Monocyte# 1.36 X10^3/uL; Monocyte% 9.9 % (0-10); NRBC Flagged by Analyzer 0 % (0-5); Neutrophil # 11.37 X10^3/uL (2.7-7.7); Neutrophil % 82.8 % (47-70); Platelet Count 203 K/mm3 (150-450); RBC Distribution Width CV 17.2 % (11.6-14.6); RBC Distribution Width SD 57.7 fl (35.1-43.9); Red Blood Count 3.72 M/mm3 (4.2-5.4); White Blood Count 13.7 K/mm3 (4.4-11.0)
[2022-03-03] MEDS: Lactated Ringers 1,000 ML 100 ML IV (07:23)
[2022-03-03 07:30] LABS: Anion Gap 5 (5-15); BUN 14 mg/dL (7-18); BUN/Creat Ratio 31.5 RATIO (10-20); Calcium,Total 7.6 mg/dL (8.5-10.1); Chloride 104 mmol/L (98-107); Creatinine, Serum 0.44 mg/dL (0.55-1.02); EST Glomerular Filtration Rate 149 mL/min (>60); Est Glom Filt Rate - Afr Amer 181 mL/min (>60); Estimated Creatinine Clearance 40.63 ml/min; Glucose 131 mg/dL (74-106); Magnesium 1.6 mg/dL (1.6-2.6); Potassium 3.2 mmol/L (3.5-5.1); Sodium Level 143 mmol/L (136-145)
[2022-03-03 07:33] LABS: Phosphorus 3.3 mg/dL (2.5-4.9)
[2022-03-03 07:40] VITALS: O2SAT 94
--- NOTE | 2022-03-03 08:09 | PN.SURG_ITS ---
Subjective Subjective Patient states abdomen is sore. Patient has not been having much out of her NG until about 200 overnight. Patient is having flatus and did have diarrhea just after surgery. Objective Data Objective Data Vital Signs: Vital Signs Temp Pulse Resp BP Pulse Ox O2 Del Method O2 Flow Rate 98.4 F 64 18 149/84 H 94 Nasal Cannula 4 03/03/22 08:23 03/03/22 08:23 03/03/22 08:23 03/03/22 08:23 03/03/22 08:23 03/03/22 08:23 03/03/22 08:23 Oxygen Flow Rate (L/min) 4 Oxygen Delivery Method Nasal Cannula Weight: 244 lb 0.827 oz Body Mass Index (BMI) 46.0 Intake & Output: Intake and Output for Last 24 Hours 03/01/22 03/02/22 03/03/22 23:59 23:59 23:59 Intake Total 1620 / 1620 1035 / 1035 Output Total 190 / 190 445 / 445 Balance 1430 / 1430 590 / 590 Lab / Micro Data Result Diagrams: 03/03/22 05:35 03/03/22 05:35 Labs: Laboratory Results - last 24 hr 03/02/22 13:00: WBC 18.6 H, RBC 4.42, Hgb 13.3, Hct 40.8, MCV 92.3, MCH 30.1, MCHC 32.6, RDW Std Deviation 55.8 H, RDW Coeff of Kathy 17.0 H, Plt Count 255, MPV 9.6, Immature Gran % (Auto) 0.800, Neut % (Auto) 81.9 H, Lymph % (Auto) 7.4 L, [place] % (Auto) 9.7, Eos % (Auto) 0.0, Baso % (Auto) 0.2, Absolute Neuts (auto) 15.2 H, Absolute Lymphs (auto) 1.37, Nucleated RBC % 0, Differential Comment SCANNED, Diff Path Review December03/02/22 13:00: Sodium 139, Potassium 3.3 L, Chloride 99, Carbon Dioxide 34.0 H, Anion Gap 6, BUN 15, Creatinine 0.57, Estim Creat Clear Calc 40.63, Est GFR (MDRD) Af Amer 135, Est GFR (MDRD) Non-Af 112, BUN/Creatinine Ratio 26.3 H, Glucose 181 H, Calcium 9.0, Total Bilirubin 0.80, AST 22, ALT 31, Alkaline Phosphatase 95, Troponin I High Sens 13, Total Protein 7.2, Albumin 3.3, Globulin 3.9, Albumin/Globulin Ratio 0.8 L, Lipase 24 L 03/02/22 13:00: Lactic Acid 1.6 03/02/22 13:51: Urine Color Yellow, Urine Clarity Cloudy, Urine pH 6.0, Ur Specific [place] 1.020, Urine Protein 500 H, Urine Glucose (UA) Normal, Urine Ketones Negative, Urine Occult Blood 50 H, Urine Nitrite Negative, Urine Bilirubin Negative, Urine Urobilinogen 1 H, Ur Leukocyte Esterase 25 H, Urine RBC 0 SEEN, Urine WBC 5-10 SEEN, Ur Squamous Epith Cells 0-5 SEEN, Urine Bacteria 4+, Urine Mucus 0 SEEN 03/02/22 20:23: POC Glucose 143 H 03/03/22 00:05: POC Glucose 131 H 03/03/22 05:32: POC Glucose 134 H 03/03/22 05:35: WBC 13.7 H, RBC 3.72 L, Hgb 11.3 L, Hct 35.3 L, MCV 94.9, MCH 30.4, MCHC 32.0, RDW Std Deviation 57.7 H, RDW Coeff of Kathy 17.2 H, Plt Count 203, MPV 9.5, Immature Gran % (Auto) 0.500, Neut % (Auto) 82.8 H, Lymph % (Auto) 6.3 L, [place] % (Auto) 9.9, Eos % (Auto) 0.2, Baso % (Auto) 0.3, Absolute Neuts (auto) 11.4 H, Absolute Lymphs (auto) 0.87, Nucleated RBC % 0 03/03/22 05:35: Sodium 143, Potassium 3.2 L, Chloride 104, Carbon Dioxide 34.0 H , Anion Gap 5, BUN 14, Creatinine 0.44 L, Estim Creat Clear Calc 40.63, Est GFR (MDRD) Af Amer 181, Est GFR (MDRD) Non-Af 149, BUN/Creatinine Ratio 31.5 H, Glucose 131 H, Calcium 7.6 L, Magnesium 1.6 03/03/22 05:35: Phosphorus 3.3 Radiography Diagnostic Testing: Radiology Impression Abdomen/Pelvis CT 03/02/22 14:06 IMPRESSION: A large midline anterior abdominal wall hernia containing small bowel loops and a portion of the transverse colon. Mildly dilated fluid-filled small bowel loops. This may represent an early small bowel obstruction. 3.6 cm x 3.1 cm soft tissue mass in the right adrenal gland. Electronically Signed: Arnold Hernandez MD at 14:25 EDT , Chest X-Ray 03/02/22 15:25 IMPRESSION: The tip of the orogastric tube is below the left hemidiaphragm. Stable opacification of the left hemithorax. Electronically Signed: Arnold Hernandez MD at 15:41 EDT , KUB X-Ray 03/02/22 15:25 IMPRESSION: The tip of the nasogastric tube is in the body of the stomach. Electronically Signed: Arnold Hernandez MD at 15:46 EDT , Rhythm Strip Rhythm Strip: Sinus Rhythm Rate: 95 Ectopy: None Physical Exam Narrative NG in place Const oriented x3 and no apparent distress Resp normal respiratory effort Cardio regular rate GI soft to palpation GI Narrative: Abdominal binder on, incision dressed clean dry intact, DAYRON sanguinous Palpation: tender other (Near incision) Bladder / Kidney Exam: catheter in place Assessment & Plan Assessment/Plan (1) S/P repair of ventral hernia: (2) Incarcerated incisional hernia: (3) Primary squamous cell carcinoma of left lung: PLAN: Plan Patient has been having some flatus we will plan to clamp NG for 6 hours and may remove after that. Continue pain control Hypokalemia?replace Lovenox/PPI Okay to DC Patel placed for I's and O's. Dorota Robotham, M.D. Pager: [phone] [facility] [address] [place] [address], [address] [place] [address] Office: [phone]
[2022-03-03 08:23] VITALS: BP 149/84; PULSE 64; RESP 18; TEMP 36.9; O2SAT 94
[2022-03-03] MEDS: Fluticasone 0.05% 1 SPRAY NASAL.SRY NASAL (08:38)
[2022-03-03] MEDS: Lisinopril 10 MG Tablet PO ×2 (08:38→23:08)
[2022-03-03] MEDS: hydroCHLOROthiazide 12.5mg 12.5 MG PO ×2 (08:38→23:08)
--- NOTE | 2022-03-03 09:22 | PCM.PN.HOSP ---
Subjective Subjective Doing well, NG tube is in place. No issues overnight. Still having some abdominal pain from surgery Objective Data Objective Data Vital Signs: Vital Signs Temp Pulse Resp BP Pulse Ox O2 Del Method O2 Flow Rate 98.4 F 64 18 149/84 H 94 Nasal Cannula 4 03/03/22 08:23 03/03/22 08:23 03/03/22 08:23 03/03/22 08:23 03/03/22 08:23 03/03/22 08:23 03/03/22 08:23 Oxygen Flow Rate (L/min) 4 Oxygen Delivery Method Nasal Cannula Weight: 244 lb 0.827 oz Body Mass Index (BMI) 46.0 Intake & Output: Intake and Output for Last 24 Hours 03/02/22 03/03/22 03/04/22 03:59 03:59 03:59 Intake Total 1650 / 1650 1005 / 1005 Output Total 315 / 315 320 / 320 Balance 1335 / 1335 685 / 685 Lab / Micro Data Result Diagrams: 03/03/22 05:35 03/03/22 05:35 Labs: Laboratory Results - last 24 hr 03/02/22 13:00: WBC 18.6 H, RBC 4.42, Hgb 13.3, Hct 40.8, MCV 92.3, MCH 30.1, MCHC 32.6, RDW Std Deviation 55.8 H, RDW Coeff of Kathy 17.0 H, Plt Count 255, MPV 9.6, Immature Gran % (Auto) 0.800, Neut % (Auto) 81.9 H, Lymph % (Auto) 7.4 L, [place] % (Auto) 9.7, Eos % (Auto) 0.0, Baso % (Auto) 0.2, Absolute Neuts (auto) 15.2 H, Absolute Lymphs (auto) 1.37, Nucleated RBC % 0, Differential Comment SCANNED, Diff Path Review December03/02/22 13:00: Sodium 139, Potassium 3.3 L, Chloride 99, Carbon Dioxide 34.0 H, Anion Gap 6, BUN 15, Creatinine 0.57, Estim Creat Clear Calc 40.63, Est GFR (MDRD) Af Amer 135, Est GFR (MDRD) Non-Af 112, BUN/Creatinine Ratio 26.3 H, Glucose 181 H, Calcium 9.0, Total Bilirubin 0.80, AST 22, ALT 31, Alkaline Phosphatase 95, Troponin I High Sens 13, Total Protein 7.2, Albumin 3.3, Globulin 3.9, Albumin/Globulin Ratio 0.8 L, Lipase 24 L 03/02/22 13:00: Lactic Acid 1.6 03/02/22 13:51: Urine Color Yellow, Urine Clarity Cloudy, Urine pH 6.0, Ur Specific [place] 1.020, Urine Protein 500 H, Urine Glucose (UA) Normal, Urine Ketones Negative, Urine Occult Blood 50 H, Urine Nitrite Negative, Urine Bilirubin Negative, Urine Urobilinogen 1 H, Ur Leukocyte Esterase 25 H, Urine RBC 0 SEEN, Urine WBC 5-10 SEEN, Ur Squamous Epith Cells 0-5 SEEN, Urine Bacteria 4+, Urine Mucus 0 SEEN 03/02/22 20:23: POC Glucose 143 H 03/03/22 00:05: POC Glucose 131 H 03/03/22 05:32: POC Glucose 134 H 03/03/22 05:35: WBC 13.7 H, RBC 3.72 L, Hgb 11.3 L, Hct 35.3 L, MCV 94.9, MCH 30.4, MCHC 32.0, RDW Std Deviation 57.7 H, RDW Coeff of Kathy 17.2 H, Plt Count 203, MPV 9.5, Immature Gran % (Auto) 0.500, Neut % (Auto) 82.8 H, Lymph % (Auto) 6.3 L, [place] % (Auto) 9.9, Eos % (Auto) 0.2, Baso % (Auto) 0.3, Absolute Neuts (auto) 11.4 H, Absolute Lymphs (auto) 0.87, Nucleated RBC % 0 03/03/22 05:35: Sodium 143, Potassium 3.2 L, Chloride 104, Carbon Dioxide 34.0 H, Anion Gap 5, BUN 14, Creatinine 0.44 L, Estim Creat Clear Calc 40.63, Est GFR (MDRD) Af Amer 181, Est GFR (MDRD) Non-Af 149, BUN/Creatinine Ratio 31.5 H, Glucose 131 H, Calcium 7.6 L, Magnesium 1.6 03/03/22 05:35: Phosphorus 3.3 Radiography Diagnostic Testing: Radiology Impression Abdomen/Pelvis CT 03/02/22 14:06 IMPRESSION: A large midline anterior abdominal wall hernia containing small bowel loops and a portion of the transverse colon. Mildly dilated fluid-filled small bowel loops. This may represent an early small bowel obstruction. 3.6 cm x 3.1 cm soft tissue mass in the right adrenal gland. Electronically Signed: Arnold Hernandez MD at 14:25 EDT , Chest X-Ray 03/02/22 15:25 IMPRESSION: The tip of the orogastric tube is below the left hemidiaphragm. Stable opacification of the left hemithorax. Electronically Signed: Arnold Hernandez MD at 15:41 EDT Reading Location ID and State: [id number] / [employer] , Service support , KUB X-Ray 03/02/22 15:25 IMPRESSION: The tip of the nasogastric tube is in the body of the stomach. Electronically Signed: Arnold Hernandez MD at 15:46 EDT , Rhythm Strip Rhythm Strip: Sinus Rhythm Rate: 95 Ectopy: None Physical Exam Narrative General: Alert, Oriented x3, Cooperative, No apparent distress HEENT: Atraumatic, PERRLA, EOMI, Normocephalic Oral: Moist Mucosa, NG tube in place Neck: Supple, No JVD Lungs: Clear to auscultation, Normal air movement, No rhonchi, No wheeze, No rales Cardiovascular: Regular rate, Regular Rhythm, Normal S1, Normal S2, No murmurs Abdomen: Soft, tender over incision, Non-Distended, No Hepato-splenomegaly Extremities: No edema, Capillary Refill Less than 3 Seconds Skin: No rashes, No breakdown, dressing is CDI Musculoskeletal: No Tenderness to Palpation of Joints or Extremities Neurological: Cranial nerves II-XII grossly intact, Motor Exam 5/5 strength throughout, Sensory exam intact to light touch and pain Psych/Mental Status: Normal Affect, Appropriate Assessment & Plan Assessment/Plan (1) Ventral hernia, unspecified, with obstruction: (2) Incarcerated incisional hernia: (3) Leukocytosis: (4) Hypokalemia: (5) Bacteriuria: PLAN: Plan 1. Incarcerated incisional hernia with a leukocytosis status post repair 03/02/2022 ? N.p.o. ? Continue with NG tube per primary ? Continue with pain meds per primary ? Given the incarcerated hernia will continue with Cipro and Flagyl, white count is still elevated but improved from admission ? PT/OT for evaluation and possible placement 2. DM2/morbid obesity ? Hold her home medications ? Sliding scale insulin ? Accu-Cheks AC at bedtime ? We will make adjustments as necessary ? BMI of 46.1 ? Discussed lifestyle modifications 3. Squamous cell carcinoma ? She did have a fungating obstruction of her left upper lobe bronchus and she is following with [facility] oncology ? She is on cisplatin and paclitaxel ? We will continue to monitor 4. Hypothyroidism ? Stable ? Continue with Synthroid when taking p.o. 5. HTN/HLD/history of CVA ? Blood pressures are stable ? Can restart her home medications when taking p.o. 6. Anxiety/depression ? Stable ? Can resume her home medications when taking p.o. DVT: SCDs Charges/Coding Visit Charges OBSV E&M: 75744 Subsequent observation care L2
--- NOTE | 2022-03-03 10:48 | CASEMGMT ---
DEBBIE JONES Assessment: Face to Face with pt for initial transition planning/care coordination assessment. DEBBIE JONES introduced self and role at [facility], pt voices understanding and consents to assessment. Pt is A/O x4 and answers all questions appropriately at this time. Pt sitting up in chair with NG in in no distress. Care providers, pharmacy, and demographics verified/updated. Admitting Dx: incarcerated hernia PCP: Trice Specialists: Gena, ROMANA; Reji Garcia Lun, onc Preferred Pharmacy: [facility] Insurance: Dariel HALL Prescription Benefit: yes LW/HPOA: Pt has LW/DPOA on file at [facility]. Her DPOA is Abelardo Ontiveros. Patient's sister is listed on face sheet as POA. Asked pt if she is aware that Abelardo is her POA, she states she would like to change this to her sister. LNOK: Abelardo Ontiveros, son; Kimberly Monson, sister Living Arrangements: Pt lives in a single story house with no steps to enter. Her son lives in the basement. Pt reports she is I in ADL's and denies concerns at home. Transportation: Pt drives self and denies concerns with transportation. DME/HHC/SNF: Pt has grab bars in the bathroom, oxygen through [employer] at 2L cont,(will call to verify) pox, 4 prong cane, FWW that is used in the home mostly and BGM with sufficient supplies. Pt states she checks her blood sugar once every other day. Pt denies hx of HHC or SNF stays. Pt states no concerns with going home at time of dc. She states her sister and son can assist her as needed. Pt is currently receiving IV chemo and radiation but states this will be put on hold d/t surgery per her report. Pt states nursing got her up in the chair today and she did well. She does not think she will need any services at home but therapy has not eval'd. Discussed HHC with her and that we will discuss again after therapy evals. Pt is agreeable to this. She states her sister will be in today and this can be discussed with her as well. Pt states no further concerns/needs. CM to follow. Advised pt to ask CM if any further question/concerns/needs arise, voices understanding. Pt Goal: Home Plan: Home, pending therapy eval. Notified SW that pt would like to change her DPOA. Pt states her abd binder is painful and is riding up, notified pt nurse.
--- NOTE | 2022-03-03 11:14 | CCN.REFER ---
Social Work SW received referral that pt has questions regarding her advance directives. SW met with pt and introduced self and role of SW. Pt has HCPOA and Living Will on file at [facility] naming her son Abelardo Ontiveros and secondary as Ginger Willard. SW explained the difference between HCPOA and Financial POA. Pt states her sister Kimberly Monson is financial POA. SW offered to complete new documents with pt. At this time pt declines stating she would like to keep things the same. SW gave pt copy of Living Will and HCPOA and informed her it can be changed at any time if she would decide to do that. RAJ Luna
[2022-03-03] MEDS: Potassium Chloride 10mEq/100mL 10 MEQ/100 ML IV.SOLN. 100 MEQ IV BOLUS (11:43)
[2022-03-03 11:54] VITALS: BP 120/57; PULSE 65; RESP 18; TEMP 36.7; O2SAT 94
[2022-03-03 13:00] LABS: Bedside Glucose 128 mg/dL (74-106)
[2022-03-03] MEDS: Potassium Chloride 10mEq/100mL 10 MEQ/100 ML IV.SOLN. 50 MEQ IV BOLUS ×3 (13:41→18:32)
[2022-03-03] MEDS: Heparin Injection (Vial) 5,000 UNIT/ML VIAL 5000 UNIT SC ×2 (13:56→23:08)
--- NOTE | 2022-03-03 14:01 | CASEMGMT ---
Addendum entered by Dee Carrera 03/03/22 14:14: TC to [facility], spoke with Mimi, pt rx is 2-4 L at rest and 4L with exertion. Original Note: DEBBIE JONES in to pt room, pt sister and son present. Pt is inquiring about HHC services. Pt son states they would like [facility] as they have a friend who works there. Patient was provided a list of HHC providers including quality and resource use data and consistent with the patient?s preferred geographic region, medical needs, and insurance network. The patient?s preferred provider is [facility]. Pt and family are requesting an GAS TRANSFER OPERATOR. TC to [facility], spoke with Augie, they do not have a GAS TRANSFER OPERATOR but states OT will work with pt on bathing. Referral accepted, faxed prelim info at this time. DEBBIE JONES back into pt room and notified pt and family that she was accepted.
[2022-03-03 16:32] VITALS: BP 116/59; PULSE 97; RESP 18; TEMP 36.7; O2SAT 97
[2022-03-03] MEDS: 0.9% Normal Saline 1,000 ML 100 ML IV (18:43)
[2022-03-03] MEDS: Ceftriaxone 1 GM/50 ML BAG IV (18:43)
[2022-03-03] MEDS: LORazepam 0.5 MG Tablet PO (18:53)
[2022-03-03 18:56] LABS: Bedside Glucose 99 mg/dL (74-106)
[2022-03-03 21:00] VITALS: BP 111/67; PULSE 93; RESP 20; TEMP 37.6; O2SAT 94
[2022-03-03 23:51] LABS: Bedside Glucose 104 mg/dL (74-106)
[2022-03-04] VITALS (7 sets, daily range): BP systolic 122–147; BP diastolic 61–91; PULSE 77–99; RESP 17–24; TEMP 36.4–36.8; O2SAT 93–95
[2022-03-04] MEDS: Albuterol 2.5 MG/3 ML VIAL.NEB. INHALATION ×2 (02:25→22:33)
[2022-03-04] MEDS: Levothyroxine 175 MCG Tablet PO (06:42)
[2022-03-04] MEDS: 0.9% Normal Saline 1,000 ML 100 ML IV ×2 (06:43→20:36)
[2022-03-04] MEDS: Heparin Injection (Vial) 5,000 UNIT/ML VIAL 5000 UNIT SC ×3 (06:43→21:09)
[2022-03-04 07:20] LABS: Bedside Glucose 125 mg/dL (74-106)
--- NOTE | 2022-03-04 08:33 | PCM.PN.HOSP ---
Subjective Subjective Doing well, no issues overnight. Pain is manageable and she did have flatus without a bowel movement. Repeat lab work is pending Objective Data Objective Data Vital Signs: Vital Signs Temp Pulse Resp BP Pulse Ox O2 Del Method O2 Flow Rate 97.9 F 77 18 122/61 H 94 Nasal Cannula 3 03/04/22 08:15 03/04/22 08:15 03/04/22 08:15 03/04/22 08:15 03/04/22 08:15 03/04/22 08:15 03/04/22 08:15 Oxygen Flow Rate (L/min) 3 Oxygen Delivery Method Nasal Cannula Weight: 244 lb 0.827 oz Body Mass Index (BMI) 46.0 Intake & Output: Intake and Output for Last 24 Hours 03/03/22 03/04/22 03/05/22 03:59 03:59 03:59 Intake Total 1650 / 1650 2010.50 / 2010.50 971.67 / 971.67 Output Total 315 / 315 850 / 850 Balance 1335 / 1335 1161.50 / 1161.50 971.67 / 971.67 Lab / Micro Data Result Diagrams: 03/03/22 05:35 03/03/22 05:35 Labs: Laboratory Results - last 24 hr 03/03/22 11:39: POC Glucose 128 H 03/03/22 17:25: POC Glucose 99 03/03/22 23:21: POC Glucose 104 03/04/22 06:40: POC Glucose 125 H Micro: Microbiology 03/02/22 13:51 Urine, Midstream Urine Culture - Preliminary Presumptive E. coli Rhythm Strip Rhythm Strip: Sinus Rhythm Rate: 95 Ectopy: None Physical Exam Narrative General: Alert, Oriented x3, Cooperative, No apparent distress HEENT: Atraumatic, PERRLA, EOMI, Normocephalic Oral: Moist Mucosa, NG tube in place Neck: Supple, No JVD Lungs: Clear to auscultation, Normal air movement, No rhonchi, No wheeze, No rales Cardiovascular: Regular rate, Regular Rhythm, Normal S1, Normal S2, No murmurs Abdomen: Soft, tender over incision, Non-Distended, No Hepato-splenomegaly Extremities: No edema, Capillary Refill Less than 3 Seconds Skin: No rashes, No breakdown, dressing is CDI Musculoskeletal: No Tenderness to Palpation of Joints or Extremities Neurological: Cranial nerves II-XII grossly intact, Motor Exam 5/5 strength throughout, Sensory exam intact to light touch and pain Psych/Mental Status: Normal Affect, Appropriate Assessment & Plan Assessment/Plan (1) Ventral hernia, unspecified, with obstruction: (2) Incarcerated incisional hernia: (3) Leukocytosis: (4) Hypokalemia: (5) Bacteriuria: PLAN: Plan 1. Incarcerated incisional hernia with a leukocytosis status post repair 03/02/2022/UTI due to E. coli ? Clear liquid diet, advance as tolerated ? Continue with pain meds per primary ? PT/OT for evaluation and possible placement ? She was given a dose of Cipro and Flagyl during surgery for incarcerated hernia and then urine culture demonstrated greater than 100,000 E. coli. We will continue with Rocephin pending sensitivities and if sensitive can either be discharged on Keflex or cefdinir to complete a 5-day course 2. DM2/morbid obesity ? Hold her home medications ? Sliding scale insulin ? Accu-Cheks AC at bedtime ? We will make adjustments as necessary ? BMI of 46.1 ? Discussed lifestyle modifications 3. Squamous cell carcinoma ? She did have a fungating obstruction of her left upper lobe bronchus and she is following with [facility] oncology ? She is on cisplatin and paclitaxel ? We will continue to monitor 4. Hypothyroidism ? Stable ? Continue with Synthroid 5. HTN/HLD/history of CVA ? Blood pressures are stable ? Can restart her home medications 6. Anxiety/depression ? Stable ? Can resume her home medications DVT: SCDs Charges/Coding Visit Charges Inpatient E&M: 23879 Subs Hosp L2
[2022-03-04 08:35] LABS: Absolute Lymphocyte Count 1.09 X10^3/uL (0.83-4.51); Absolute Neutrophil Count 8.4 X10^3/uL (2.0-7.7); Basophil# 0.03 X10^3/uL; Basophil% 0.3 % (0-1); Eosinophil# 0.07 X10^3/uL; Eosinophils% 0.7 % (0-5); Hematocrit 32.5 % (37-47); Hemoglobin 10.6 g/dL (12.0-15.0); Lymphocyte # 1.09 X10^3/ul (0.83-4.51); Lymphocyte % 10.3 % (19-41); Mean Corp Hgb Conc 32.6 g/dL (32-36); Mean Corpuscular Hgb 30.5 pg (27.0-32.0); Mean Corpuscular Volume 93.7 fL (81-99); Mean Platelet Vol. 9.1 fl (6.2-12.0); Monocyte# 0.98 X10^3/uL; Monocyte% 9.3 % (0-10); NRBC Flagged by Analyzer 0 % (0-5); Neutrophil # 8.39 X10^3/uL (2.7-7.7); Neutrophil % 79.1 % (47-70); Platelet Count 189 K/mm3 (150-450); RBC Distribution Width CV 17.4 % (11.6-14.6); RBC Distribution Width SD 58.4 fl (35.1-43.9); Red Blood Count 3.47 M/mm3 (4.2-5.4); White Blood Count 10.6 K/mm3 (4.4-11.0)
[2022-03-04] MEDS: hydroCHLOROthiazide 12.5mg 12.5 MG PO ×2 (08:35→21:11)
[2022-03-04] MEDS: Fluticasone 0.05% 1 SPRAY NASAL.SRY NASAL (08:35)
[2022-03-04] MEDS: Nystatin Powder 15gm Bottle 1 APPLIC TOPICAL ×2 (08:35→21:10)
[2022-03-04] MEDS: Lisinopril 10 MG Tablet PO ×2 (08:35→21:11)
[2022-03-04] MEDS: Menthol/Lanolin/Calamine/Znox 113 GM Tube 1 APPLIC TOPICAL ×2 (08:36→21:10)
--- NOTE | 2022-03-04 08:38 | PN.SURG_ITS ---
Subjective Subjective Patient is doing well and she is able to be removed yesterday as well as Patel. Patient is tolerating clears and having flatus, no bowel movement. Objective Data Objective Data Vital Signs: Vital Signs Temp Pulse Resp BP Pulse Ox O2 Del Method O2 Flow Rate 97.9 F 77 18 122/61 H 94 Nasal Cannula 3 03/04/22 08:15 03/04/22 08:15 03/04/22 08:15 03/04/22 08:15 03/04/22 08:15 03/04/22 08:15 03/04/22 08:15 Oxygen Flow Rate (L/min) 3 Oxygen Delivery Method Nasal Cannula Weight: 244 lb 0.827 oz Body Mass Index (BMI) 46.0 Intake & Output: Intake and Output for Last 24 Hours 03/02/22 03/03/22 03/04/22 23:59 23:59 23:59 Intake Total 1620 / 1620 2041.50 / 2041.50 971.67 / 971.67 Output Total 190 / 190 925 / 975 50 / 50 Balance 1430 / 1430 1116.50 / 1066.50 921.67 / 921.67 Lab / Micro Data Result Diagrams: 03/04/22 08:27 03/04/22 08:27 Labs: Laboratory Results - last 24 hr 03/03/22 11:39: POC Glucose 128 H 03/03/22 17:25: POC Glucose 99 03/03/22 23:21: POC Glucose 104 03/04/22 06:40: POC Glucose 125 H 03/04/22 08:27: WBC 10.6, RBC 3.47 L, Hgb 10.6 L, Hct 32.5 L, MCV 93.7, MCH 30. 5, MCHC 32.6, RDW Std Deviation 58.4 H, RDW Coeff of Kathy 17.4 H, Plt Count 189, MPV 9.1, Immature Gran % (Auto) 0.300, Neut % (Auto) 79.1 H, Lymph % (Auto) 10.3 L, [place] % (Auto) 9.3, Eos % (Auto) 0.7, Baso % (Auto) 0.3, Absolute Neuts (auto) 8.4 H, Absolute Lymphs (auto) 1.09, Nucleated RBC % 0 Micro: Microbiology 03/02/22 13:51 Urine, Midstream Urine Culture - Preliminary Presumptive E. coli Rhythm Strip Rhythm Strip: Sinus Rhythm Rate: 95 Ectopy: None Physical Exam Resp normal respiratory effort Cardio regular rate GI GI Narrative: Abdomen: Soft, nondistended, tender near incision's dressed clean dry and intact with alee and retention sutures x2, no peritoneal signs, DAYRON serosanguineous Assessment & Plan Assessment/Plan (1) S/P repair of ventral hernia: (2) Incarcerated incisional hernia: (3) Primary squamous cell carcinoma of left lung: PLAN: Plan She has tolerated clears will advance to full's and plan to advance to regular patient has a bowel movement possible DC later today-if patient continues to do well. Continue pain control Hypokalemia?replace Heparin/PPI Dorota Avery M.D. Pager: [phone] [facility] [address] [place] [address], [facility], [address] [place] [id number] Office: [phone]
[2022-03-04 08:55] LABS: Anion Gap 2 (5-15); BUN 7 mg/dL (7-18); BUN/Creat Ratio 17.9 RATIO (10-20); Calcium,Total 7.8 mg/dL (8.5-10.1); Chloride 104 mmol/L (98-107); Creatinine, Serum 0.39 mg/dL (0.55-1.02); EST Glomerular Filtration Rate 172 mL/min (>60); Est Glom Filt Rate - Afr Amer 209 mL/min (>60); Estimated Creatinine Clearance 40.63 ml/min; Glucose 124 mg/dL (74-106); Potassium 3.1 mmol/L (3.5-5.1); Sodium Level 141 mmol/L (136-145)
--- NOTE | 2022-03-04 09:23 | DCINST_ITS ---
Discharge Instructions Diet Discharge Diet: Light diet - advance as tolerated Activity Discharge Activity: May Not Drive (while taking narcotic pain medications.) May shower in (days): 1 Lifting Restrictions: no lifting >20 lbs x 2 wks, no strenuous exercise for 4 wks Dressing / Incision Call your doctor if your incision/area has: Continuous Slow Oozing, Sudden Increased Bleeding, Increased Pain/ Swelling, Increased Redness, Foul Smelling Discharge and Swelling at the incision site Call your doctor if you observe: Fever of 101 or Higher Remove Dressing in: 1 day Cleanse incision/area with: Soap & Water Additional Dressing/Incision Instructions:: Make appointment for staple removal and about 10-12 days from surgery, retention sutures will stay in longer. Continue DAYRON and record output/color and bring to appointment. Follow Up Care Please Follow Up With: Dorota Avery MD When: Call the office for a follow-up appointment about 10 to 12 days?March 12; after 5 PM and on the weekends call [phone] with any concerns. Test Results: Test results from this visit will be discussed in further detail at your follow- up appointment, if applicable. Discharge Plan Admission Admit Date/Time: 03/03/22 12:11 Attending Provider: Dorota Avery Primary Care Provider: Rosaura Carnes Consulting Providers: Matt Ibarra Discharge Orders/Prescriptions Prescriptions: New oxycodone-acetaminophen 5-325 mg tablet 1 tab PO Q6H PRN (Reason: pain) 3 Days Qty: 15 0RF cefdinir 300 mg capsule 300 mg PO BID Qty: 8 0RF Continued lisinopril-hydrochlorothiazide 10-12.5 mg tablet 1 tab PO BID glimepiride [Amaryl] 4 mg tablet 4 mg PO QAM fluticasone propionate [Allergy Relief (fluticasone)] 50 mcg/actuation spray,suspension 1 spray INTRANASAL DAILY escitalopram oxalate [Lexapro] 20 mg tablet 20 mg PO DAILY levothyroxine 175 mcg tablet 175 mcg PO SUMOTUWETHFR oxybutynin chloride 15 mg tablet extended release 24hr 15 mg PO DAILY atorvastatin 80 mg tablet 80 mg PO QHS albuterol sulfate [Proventil HFA] 90 mcg/actuation HFA aerosol inhaler 2 puff INHALATION Q4H PRN (Reason: SOB) lorazepam 0.5 mg tablet 0.5 mg PO BID PRN (Reason: Anxiety) metformin 500 mg tablet 500 mg PO DAILY Label Comments: TAKE 1 TABLET BY MOUTH TWICE A DAY levothyroxine 175 mcg tablet 350 mcg PO SA Label Comments: TAKE 1 TABLET EVERY DAY AND 2 TABS ON TUESDAY omeprazole 40 mg capsule,delayed release(DR/EC) 40 mg PO QHS Label Comments: TAKE 1 CAPSULE BY MOUTH ONCE DAILY. AT BEDTIME. magnesium oxide 400 mg (241.3 mg magnesium) tablet 1 tab PO DAILY Label Comments: TAKE 1 TABLET BY MOUTH TWICE A DAY promethazine 25 mg tablet 25 mg PO Q6H PRN PRN (Reason: Nausea) Label Comments: TAKE 1 TABLET BY MOUTH EVERY 6 HOURS NEEDED. FOR NAUSEA Referrals / Follow Up: Rosaura Carnes DO [Primary Care Provider] - Disposition Disposition (needs filled in before D/C Order can be placed): Home, Self Care
[2022-03-04] MEDS: Potassium Chloride Oral Tablet 20 MEQ 60 MEQ PO (10:42)
[2022-03-04] MEDS: Ceftriaxone 1 GM/50 ML BAG IV (10:43)
[2022-03-04] MEDS: Pantoprazole Sodium 40 MG Tablet PO (10:44)
[2022-03-04] MEDS: Tolterodine Tartrate 4 MG CAP.SA PO (10:44)
[2022-03-04] MEDS: Escitalopram Oxalate 20 MG Tablet PO (10:44)
[2022-03-04 12:10] LABS: Pathologist Review Reviewed
[2022-03-04 12:31] LABS: Bedside Glucose 120 mg/dL (74-106)
[2022-03-04 17:30] LABS: Bedside Glucose 101 mg/dL (74-106)
[2022-03-04] MEDS: LORazepam 0.5 MG Tablet PO (21:16)
[2022-03-04 22:25] LABS: Bedside Glucose 96 mg/dL (74-106)
[2022-03-05 03:20] VITALS: BP 116/68; PULSE 88; RESP 20; TEMP 36.6; O2SAT 94
[2022-03-05] MEDS: Heparin Injection (Vial) 5,000 UNIT/ML VIAL 5000 UNIT SC (05:54)
[2022-03-05] MEDS: Levothyroxine 175 MCG Tablet PO (05:54)
[2022-03-05 06:31] LABS: Bedside Glucose 108 mg/dL (74-106)
[2022-03-05 07:25] VITALS: O2SAT 90
--- NOTE | 2022-03-05 08:27 | PN.SURG_ITS ---
Objective Data Objective Data Vital Signs: Vital Signs Temp Pulse Resp BP Pulse Ox O2 Del Method O2 Flow Rate 97.8 F 88 20 H 116/68 90 Venturi Mask 2 03/05/22 03:20 03/05/22 03:20 03/05/22 03:20 03/05/22 03:20 03/05/22 07:25 03/05/22 07:25 03/05/22 07:25 Oxygen Flow Rate (L/min) 2 Oxygen Delivery Method Venturi Mask Weight: 244 lb 0.827 oz Body Mass Index (BMI) 46.0 Intake & Output: Intake and Output for Last 24 Hours 03/03/22 03/04/22 03/05/22 23:59 23:59 23:59 Intake Total 2041.50 / 2041.50 2277.34 / 2277.34 Output Total 925 / 975 50 / 50 Balance 1116.50 / 1066.50 2227.34 / 2227.34 Lab / Micro Data Result Diagrams: 03/04/22 08:27 03/04/22 08:27 Labs: Laboratory Results - last 24 hr 03/02/22 13:00: Diff Path Review Reviewed 03/04/22 08:27: WBC 10.6, RBC 3.47 L, Hgb 10.6 L, Hct 32.5 L, MCV 93.7, MCH 30.5, MCHC 32.6, RDW Std Deviation 58.4 H, RDW Coeff of Kathy 17.4 H, Plt Count 189, MPV 9.1, Immature Gran % (Auto) 0.300, Neut % (Auto) 79.1 H, Lymph % (Auto) 10.3 L, Kinney % (Auto) 9.3, Eos % (Auto) 0.7, Baso % (Auto) 0.3, Absolute Neuts (auto) 8.4 H, Absolute Lymphs (auto) 1.09, Nucleated RBC % 0 03/04/22 08:27: Sodium 141, Potassium 3.1 L, Chloride 104, Carbon Dioxide 35.0 H , Anion Gap 2 L, BUN 7, Creatinine 0.39 L, Estim Creat Clear Calc 40.63, Est GFR (MDRD) Af Amer 209, Est GFR (MDRD) Non-Af 172, BUN/Creatinine Ratio 17.9, Gluc ose 124 H, Calcium 7.8 L 03/04/22 12:09: POC Glucose 120 H 03/04/22 17:09: POC Glucose 101 03/04/22 21:13: POC Glucose 96 03/05/22 05:52: POC Glucose 108 H Micro: Microbiology 03/02/22 13:51 Urine, Midstream Urine Culture - Final Presumptive E. coli Rhythm Strip Rhythm Strip: Sinus Rhythm Rate: 95 Ectopy: None Assessment & Plan Assessment/Plan (1) S/P repair of ventral hernia: (2) Incarcerated incisional hernia: (3) Primary squamous cell carcinoma of left lung: PLAN: Plan She has tolerated clears will advance to ADA likely DC later today-if patient continues to do well. Continue pain control Heparin/PPI UTI- rocephin, and cefdinir on d/c Dorota Avery M.D. Pager: [phone] [facility] [address] [place] [address], [facility], [address] [place] [address] Office: [phone]
[2022-03-05] MEDS: 0.9% Normal Saline 1,000 ML 100 ML IV (08:44)
[2022-03-05 08:47] VITALS: BP 123/52; PULSE 84; RESP 20; TEMP 36.7; O2SAT 95
[2022-03-05] MEDS: Menthol/Lanolin/Calamine/Znox 113 GM Tube 1 APPLIC TOPICAL (09:02)
[2022-03-05] MEDS: Ensure Clear 120 ML Liquid PO (09:05)
[2022-03-05] MEDS: Lisinopril 10 MG Tablet PO (09:06)
[2022-03-05] MEDS: hydroCHLOROthiazide 12.5mg 12.5 MG PO (09:06)
[2022-03-05] MEDS: Pantoprazole Sodium 40 MG Tablet PO (09:06)
[2022-03-05] MEDS: Escitalopram Oxalate 20 MG Tablet PO (09:06)
[2022-03-05] MEDS: Tolterodine Tartrate 4 MG CAP.SA PO (09:06)
[2022-03-05] MEDS: Fluticasone 0.05% 1 SPRAY NASAL.SRY NASAL (09:10)
[2022-03-05] MEDS: Nystatin Powder 15gm Bottle 1 APPLIC TOPICAL (09:11)
[2022-03-05] MEDS: Ceftriaxone 1 GM/50 ML BAG IV (09:12)
--- NOTE | 2022-03-05 10:34 | DS.PCM_ITS ---
Providers Date of Admission: 03/03/22 Primary Care Physician: Dr. Rosaura Carnes, Consultations 03/02/22 19:31 Consult: Hospitalist Routine Consulting Provider: Abdoul Stokes Reason for Consult: medical management EMERGENT Consult: No MD Notified: Yes Date Notified: 03/02/22 Time Notified: 19:11 Method of Notification: Verbal Comments:: Dr. Mendoza saw pt in PACU per her note Reason For Visit: INCARCERATED HERNIA Diagnosis Discharge Diagnosis (1) S/P repair of ventral hernia: Status: Acute Code(s): Z98.890 - Other specified postprocedural states; Z87.19 - Personal history of other diseases of the digestive system (2) Incarcerated incisional hernia: Status: Resolved Code(s): K43.0 - Incisional hernia with obstruction, without gangrene (3) Primary squamous cell carcinoma of left lung: Status: Acute Code(s): C34.92 - Malignant neoplasm of unspecified part of left bronchus or lung (4) Bacteriuria: Status: Acute Code(s): R82.71 - Bacteriuria Plan She has tolerated clears will advance to ADA likely DC later today-if patient continues to do well. Continue pain control Heparin/PPI UTI- rocephin, and cefdinir on d/c Dorota Avery M.D. Pager: [phone] [facility] [address] [place] [address], [facility], [address] [place] [id number] Office: [phone] Medications at Discharge Home Medications albuterol sulfate 90 mcg/actuation aerosol inhaler (Proventil HFA) 2 puff inhalation Q4H PRN SOB 04/06/18 atorvastatin 80 mg tablet 80 mg PO QHS cholesterol 04/06/18 escitalopram oxalate 20 mg tablet (Lexapro) 20 mg PO DAILY mental health 04/06/18 fluticasone propionate 50 mcg/actuation nasal spray,suspension (Allergy Relief (fluticasone)) 1 spray intranasal DAILY allergies 04/06/18 glimepiride 4 mg tablet (Amaryl) 4 mg PO QAM diabetes 04/06/18 levothyroxine 175 mcg tablet 175 mcg PO SUMOTUWETHFR THYROID 04/06/18 oxybutynin chloride 15 mg tablet,extended release 24 hr 15 mg PO DAILY bladder 0 04/06/18 lisinopril 10 mg-hydrochlorothiazide 12.5 mg tablet 1 tab PO BID blood pressure 04/13/18 levothyroxine 175 mcg tablet 350 mcg PO SA THYROID 11/06/21 metformin 500 mg tablet 500 mg PO DAILY DM 11/06/21 lorazepam 0.5 mg tablet 0.5 mg PO BID PRN Anxiety 11/19/21 magnesium oxide 400 mg (241.3 mg magnesium) tablet 1 tab PO DAILY replacement 03/03/22 omeprazole 40 mg capsule,delayed release 40 mg PO QHS gerd 03/03/22 promethazine 25 mg tablet 25 mg PO Q6H PRN PRN Nausea 03/03/22 cefdinir 300 mg capsule 300 mg PO BID #8 caps 03/04/22 oxycodone-acetaminophen 5 mg-325 mg tablet 1 tab PO Q6H PRN pain 3 days #15 tabs 03/04/22 Hospital Course Operations - (Repair of incarcerated incisional hernia, placement of retention sutures x2 and DAYRON) Procedures None Summary of Care Provided Minutes Spent on Discharge: 15 Hospital Course: Patient came to the ER due to abdominal pain. Patient has CT of the pelvis was consistent with bowel obstruction due to incarcerated ventral hernia. Patient also had a UA which was consistent with a UTI. Patient was on antibiotics for UTI throughout the hospitalization and DC'd on cefdinir. Patient underwent surgery for repair of incarcerated ventral hernia and placement of retention s utures x2 and DAYRON. Postoperatively patient did well and stable to have NG removed which was placed in the ER. Patient was able to advance diet as tolerated after having bowel function. Patient's pain was controlled. Physical Exam Resp normal respiratory effort Cardio regular rate GI GI Narrative: Abdomen: Soft, nondistended, tender near incision's dressed clean dry and intact with alee and retention sutures x2, no peritoneal signs, DAYRON serous Weight / BMI Weight Weight: 244 lb 0.827 oz Body Mass Index (BMI) 46.0 ABG / Lab / Microbiology Data Result Diagrams: 03/04/22 08:27 03/04/22 08:27 Laboratory: Laboratory Results - last 24 hr 03/02/22 13:00: Diff Path Review Reviewed 03/04/22 12:09: POC Glucose 120 H 03/04/22 17:09: POC Glucose 101 03/04/22 21:13: POC Glucose 96 03/05/22 05:52: POC Glucose 108 H Microbiology: Microbiology 03/02/22 13:51 Urine, Midstream Urine Culture - Final Presumptive E. coli D/C Instructions Discharge Diet: Light diet - advance as tolerated May shower in (days): 1 Call your doctor if your incision/area has: Continuous Slow Oozing, Sudden Increased Bleeding, Increased Pain/ Swelling, Increased Redness, Foul Smelling Discharge and Swelling at the incision site Call your doctor if you observe: Fever of 101 or Higher Cleanse incision/area with: Soap & Water Additional Dressing/Incision Instructions: Make appointment for staple removal and about 10-12 days from surgery, retention sutures will stay in longer. Continue DAYRON and record output/color and bring to appointment. Please Follow Up With: Dorota Avery MD When: Call the office for a follow-up appointment about 10 to 12 days?March 12; after 5 PM and on the weekends call [phone] with any concerns. Meaningful Use Info Meaningful Use Diagnoses (Choose all that apply): None applicable Discharge Plan Admission Admit Date/Time: 03/03/22 12:11 Attending Provider: Dorota Avery Primary Care Provider: Rosaura Carnes Consulting Providers: Matt Ibarra Discharge Orders/Prescriptions Prescriptions: New oxycodone-acetaminophen 5-325 mg tablet 1 tab PO Q6H PRN (Reason: pain) 3 Days Qty: 15 0RF cefdinir 300 mg capsule 300 mg PO BID Qty: 8 0RF Continued lisinopril-hydrochlorothiazide 10-12.5 mg tablet 1 tab PO BID glimepiride [Amaryl] 4 mg tablet 4 mg PO QAM fluticasone propionate [Allergy Relief (fluticasone)] 50 mcg/actuation spr ay,suspension 1 spray INTRANASAL DAILY escitalopram oxalate [Lexapro] 20 mg tablet 20 mg PO DAILY levothyroxine 175 mcg tablet 175 mcg PO SUMOTUWETHFR oxybutynin chloride 15 mg tablet extended release 24hr 15 mg PO DAILY atorvastatin 80 mg tablet 80 mg PO QHS albuterol sulfate [Proventil HFA] 90 mcg/actuation HFA aerosol inhaler 2 puff INHALATION Q4H PRN (Reason: SOB) lorazepam 0.5 mg tablet 0.5 mg PO BID PRN (Reason: Anxiety) metformin 500 mg tablet 500 mg PO DAILY Label Comments: TAKE 1 TABLET BY MOUTH TWICE A DAY levothyroxine 175 mcg tablet 350 mcg PO SA Label Comments: TAKE 1 TABLET EVERY DAY AND 2 TABS ON TUESDAY omeprazole 40 mg capsule,delayed release(DR/EC) 40 mg PO QHS Label Comments: TAKE 1 CAPSULE BY MOUTH ONCE DAILY. AT BEDTIME. magnesium oxide 400 mg (241.3 mg magnesium) tablet 1 tab PO DAILY Label Comments: TAKE 1 TABLET BY MOUTH TWICE A DAY promethazine 25 mg tablet 25 mg PO Q6H PRN PRN (Reason: Nausea) Label Comments: TAKE 1 TABLET BY MOUTH EVERY 6 HOURS NEEDED. FOR NAUSEA Referrals / Follow Up: Rosaura Carnes DO [Primary Care Provider] - Disposition Disposition (needs filled in before D/C Order can be placed): Home, Self Care
--- NOTE | 2022-03-05 11:17 | CASEMGMT ---
Addendum entered by Dee Carrera 03/05/22 11:19: TC to [facility], spoke with Negra, she is aware pt will dc today. States they will reach out to pt with SOC. Original Note: DEBBIE CM in to pt room, pt sitting up in chair. Pt ready for dc. On 2L oxygen currently. Faxed dc summary to N. Pt denies further needs.
[2022-03-05 11:45] LABS: Bedside Glucose 171 mg/dL (74-106)
[2022-03-05 13:25] VITALS: BP 132/68; PULSE 81; RESP 18; TEMP 36.8; O2SAT 94
== END 2022-03-05 13:30 | disposition home or self-care (01) | DRG 336 ==
LOC: ED 14:42 → SDC 14:43 → ACINP 14:45 → MS3 18:26 → SDC 19:09 → MS3 19:09
PROVIDERS: Family Medicine; Internal Medicine; Admitting Provider Surgery; Emergency Provider Emergency Medicine; PCP Internal Medicine; Visit Provider Surgery
PROC: (CPT 49000; principal; 2022-03-02 15:30)
DX: K43.0 Incisional hernia with obstruction, without gangrene (principal); C34.12 Malignant neoplasm of upper lobe, left bronchus or lung; I69.351 Hemiplegia and hemiparesis following cerebral infarction affecting right dominant side; N39.0 Urinary tract infection, site not specified; Z68.42 Body mass index [BMI] 45.0-49.9, adult; E11.9 Type 2 diabetes mellitus without complications; E66.01 Morbid (severe) obesity due to excess calories; B96.20 Unspecified Escherichia coli [E. coli] as the cause of diseases classified elsewhere; Z99.81 Dependence on supplemental oxygen; E78.00 Pure hypercholesterolemia, unspecified; I10 Essential (primary) hypertension; E89.0 Postprocedural hypothyroidism; E87.6 Hypokalemia; M79.7 Fibromyalgia; F41.9 Anxiety disorder, unspecified; F32.A Depression, unspecified; K66.0 Peritoneal adhesions (postprocedural) (postinfection); R82.71 Bacteriuria; R53.81 Other malaise; R09.02 Hypoxemia; R32 Unspecified urinary incontinence; Z90.49 Acquired absence of other specified parts of digestive tract; Z90.710 Acquired absence of both cervix and uterus; Z79.82 Long term (current) use of aspirin; Z79.84 Long term (current) use of oral hypoglycemic drugs; Z79.899 Other long term (current) drug therapy; Z87.891 Personal history of nicotine dependence
CPT/HCPCS: 36415; 71045; 74018; 74177; 80048; 80053; 81001; 82962; 83605; 83690; 83735; 84100; 84484; 85025; 87086; 87088; 87186; 88302; 93005; 94640; 94762; 97110; 97162; 97166; 97530; 99251; 99285; 99406; J7030; J7050; J7120; Q9967; A4216; C1760; G0463; J0744; J2405; J3490

== ENCOUNTER 2022-12-24 08:12 | Outpatient (CLI) | payer MEDICARE, BC, SELFPAY ==
[2022-12-24] VITALS (7 sets, daily range): BP systolic 119–151; BP diastolic 57–72; PULSE 77–94; RESP 16–18; TEMP 36.6–37.2; O2SAT 92–99; BMI 48.8
[2022-12-24] MEDS: 0.9% NaCl VAD Flush IV ×2 (08:37→14:35)
== END 2022-12-24 08:13 | disposition home or self-care (01) ==
LOC: MEDOUTP 08:13
PROVIDERS: PCP Internal Medicine; Referring Provider Internal Medicine Hematology & Oncology; Visit Provider Internal Medicine Hematology & Oncology
DX: Z51.89 Encounter for other specified aftercare (principal); D53.9 Nutritional anemia, unspecified; D64.81 Anemia due to antineoplastic chemotherapy
CPT/HCPCS: 36430; 86850; 86900; 86901; 86920; 86922; J7040; P9016; A4216

== ENCOUNTER 2023-02-01 07:46 | Outpatient (CLI) | payer MEDICARE, BC, SELFPAY ==
[2023-02-01] VITALS (7 sets, daily range): BP systolic 109–136; BP diastolic 48–78; PULSE 82–110; RESP 16–18; TEMP 36.6–37; O2SAT 92–97; BMI 47.8
[2023-02-01] MEDS: 0.9% NaCl Peripheral Flush Adult/Peds IV ×2 (12:26→12:27)
== END 2023-02-01 07:47 | disposition home or self-care (01) ==
LOC: MEDOUTP 07:46
PROVIDERS: PCP Internal Medicine; Referring Provider Internal Medicine Hematology & Oncology; Visit Provider Internal Medicine Hematology & Oncology
DX: D64.9 Anemia, unspecified (principal)
CPT/HCPCS: 36430; 86850; 86900; 86901; 86920; 86922; J7040; P9016; A4216

== ENCOUNTER 2023-04-05 12:00 | Emergency (ER) | payer MEDICARE, BC, SELFPAY ==
[2023-04-05 12:01] VITALS: BP 121/71; PULSE 114; RESP 18; TEMP 36.4; O2SAT 92
--- NOTE | 2023-04-05 12:26 | EDS_ITS ---
HPI HPI - GI History of Present Illness Chief Complaint: Nausea/Vomiting/Diarrhea Narrative Narrative: 67-year-old female presenting for evaluation of nausea, vomiting, diarrhea. Patient with significant history of squamous cell carcinoma of the lung. There is some concern for rapid decline and patient was placed on oxycodone recently and the symptoms all started after the oxycodone. Yesterday the patient did not have any nausea vomiting or diarrhea. Patient was given Reglan this morning without relief. She was supposed to see Dr. Garcia this morning after reaching out to them through [facility]. Patient had 4 episodes of diarrhea this morning. She complains of abdominal bloating. She states that my underwear will go over my belly. Patient and sister were supposed to go see Dr. Garcia this morning and apparently her of the nurse for Dr. Garcia that was supposed to have a talk about hospice however the patient did not make it to the office visit and came to the ER instead. [facility] Medical History (Updated 04/05/23 @ 13:14 by Deion Hughes) Abnormal echocardiogram Acute respiratory failure with hypoxia Ambulates with cane Anxiety Arthritis Asthma Benign essential hypertension Bladder disease Cancer Cardiac murmur Cardiology follow-up encounter Chronic osteoarthritis CVA (cerebral vascular accident) Depression Diabetes Dietary restriction Fibromyalgia Former smoker High cholesterol History of asthma History of echocardiogram History of pain when walking History of rheumatic fever History of steroid therapy History of stress test Hyperlipidemia Hypertension Hypothyroidism Kidney stones Leukemia in remission Liver cancer Lung mass Nontoxic uninodular goiter On home oxygen therapy Shortness of breath on exertion Sleep apnea Stroke/cerebrovascular accident Type II diabetes mellitus Wears dentures Wears glasses Home Medications albuterol sulfate 90 mcg/actuation aerosol inhaler (Proventil HFA) 2 puff inhalation Q4H PRN SOB 04/06/18 [History Last Taken 11/05/21] atorvastatin 80 mg tablet 80 mg PO QHS cholesterol 04/06/18 [History Last Taken 11/05/21] escitalopram oxalate 20 mg tablet (Lexapro) 20 mg PO DAILY mental health 04/06/18 [History Last Taken 11/05/21] fluticasone propionate 50 mcg/actuation nasal spray,suspension (Allergy Relief (fluticasone)) 1 spray intranasal DAILY allergies 04/06/18 [History Last Taken 11/05/21] glimepiride 4 mg tablet (Amaryl) 4 mg PO QAM diabetes 04/06/18 [History Last Taken 11/05/21] levothyroxine 175 mcg tablet 175 mcg PO SUMOTUWETHFR THYROID 04/06/18 [History Last Taken 11/05/21] oxybutynin chloride 15 mg tablet,extended release 24 hr 15 mg PO DAILY bladder 04/06/18 [History Last Taken 11/05/21] lisinopril 10 mg-hydrochlorothiazide 12.5 mg tablet 1 tab PO BID blood pressure 04/13/18 [History Last Taken 11/05/21] metformin 500 mg tablet 500 mg PO DAILY DM 11/06/21 [History Last Taken 11/09/21] lorazepam 0.5 mg tablet 0.5 mg PO BID PRN Anxiety 11/19/21 [History Last Taken Unknown] magnesium oxide 400 mg (241.3 mg magnesium) tablet 1 tab PO DAILY replacement 03/03/22 [History Last Taken Unknown] omeprazole 40 mg capsule,delayed release 40 mg PO QHS gerd 03/03/22 [History Last Taken Unknown] promethazine 25 mg tablet 25 mg PO Q6H PRN PRN Nausea 03/03/22 [History Last Taken Unknown] oxycodone-acetaminophen 5 mg-325 mg tablet 1 tab PO Q6H PRN pain 3 days #15 tabs 03/04/22 [Rx Last Taken Unknown] cephalexin 500 mg capsule 500 mg PO Q12 #14 CAPSULES 04/05/23 [Rx Last Taken Unknown] ondansetron 4 mg disintegrating tablet 4 mg PO Q8H PRN PRN Nausea #14 tabs 04/05/23 [Rx Last Taken Unknown] Allergy/AdvReac Type Severity Reaction Status Date / Time potassium Allergy Other Verified 04/05/23 12:03 loratadine [From Claritin] AdvReac Severe Nausea Verified 04/05/23 12:03 celecoxib [From Celebrex] AdvReac Unknown Unknown Verified 04/05/23 12:03 meperidine [From Demerol] AdvReac Unknown Unknown Verified 04/05/23 12:03 morphine AdvReac Unknown Unknown Verified 04/05/23 12:03 Penicillins AdvReac Unknown Unknown Verified 04/05/23 12:03 propoxyphene AdvReac Unknown Unknown Verified 04/05/23 12:03 [From Darvocet-N 100] Family History Father Heart disease Sister Heart disease COPD (chronic obstructive pulmonary disease) Brother COPD (chronic obstructive pulmonary disease) Surgical History History of cholecystectomy History of splenectomy History of thyroidectomy, total History of total hysterectomy History of ventral hernia repair Hx of appendectomy Social History Smoking Status: Former smoker Tobacco: How many years used: 40 Electronic Cigarette Use: not used second hand exposure: No alcohol intake: current details: rare substance use type: does not use EXAM Physical Exam Const Vital Signs: 04/05/23 12:01 04/05/23 14:49 Temperature 97.5 F L 97.9 F Temperature Source Temporal Oral Pulse Rate 114 H 102 H Respiratory Rate 18 18 Blood Pressure 121/71 H 142/56 H Blood Pressure Mean 87 84 Pulse Ox 92 94 Oxygen Delivery Method Nasal Cannula Room Air Oxygen Flow Rate (L/min) 2 MDM MDM MDM Narrative Medical decision making narrative: Patient presenting with nausea/vomiting. She has a history of squamous cell carcinoma of the lung. Dr. Garcia requested labs be obtained and CTs of the chest and abdomen. Differential includes pneumonia, worsening metastasis, transaminitis, anemia, electrolyte normalities, diverticulitis, colitis, UTI. Her CBC today shows a slight leukocytosis. Hemoglobin 10.2 which is near baseline. Platelets low at 80. This is a new problem. Renal function is okay however her total bilirubin is 3.4, direct bilirubin 2.9, AST 270, ALT 141, alk phosphatase 539. This is all new. Urinalysis consistent with UTI. Patient given dose of Keflex. Zofran did help her nausea. She was given IV fluids as well. CT of the chest abdomen pelvis shows a lung mass obstructing the bronchus in the chest. With postobstructive pneumonia/atelectasis. Patient is on her baseline [address] of the abdomen pelvis shows worsening metastasis to the liver and some findings of enlarged lymph nodes around the liver. Discussed with Dr. Garcia who recommended the patient be treated for UTI and he will follow-up with her in the office tomorrow. He believes she is going to need to go hospice due to the rapid decline. Patient discharged into the care of her family. Impression: 1. Metastatic squamous cell carcinoma 2. Transaminitis 3. UTI 4. Generalized weakness Lab Data Attestation: I reviewed the patient's lab results. Labs: Laboratory Results - last 24 hr 04/05/23 04/05/23 12:55 14:51 WBC 12.7 H RBC 3.05 L Hgb 10.2 L Hct 32.1 L MCV 105.2 H MCH 33.4 H MCHC 31.8 L RDW Std Deviation 82.3 H RDW Coeff of Kathy 22.2 H Plt Count 80 L MPV 11.9 Immature Gran % (Auto) 0.500 Neut % (Auto) 87.0 H Lymph % (Auto) 2.7 L [place] % (Auto) 9.6 Eos % (Auto) 0.0 Baso % (Auto) 0.2 Absolute Neuts (auto) 11.0 H Absolute Lymphs (auto) 0.34 L Nucleated RBC % 1.7 Differential Comment SCANNED Polychromasia 1+ Anisocytosis 2+ Macrocytosis 1+ Target Cells RARE Sodium 140 Potassium 4.7 Chloride 102 Carbon Dioxide 29.0 Anion Gap 9 BUN 18 Creatinine 0.99 Estim Creat Clear Calc 38.52 Est GFR (MDRD) Af Amer 71 Est GFR (MDRD) Non-Af 59 L BUN/Creatinine Ratio 18.1 Glucose 140 H Calcium 9.3 Total Bilirubin 3.40 H Direct Bilirubin 2.90 H AST 274 H ALT 141 H Alkaline Phosphatase 539 H Total Protein 6.0 L Albumin 2.4 L Globulin 3.6 Lipase 17 Urine Color Yellow Urine Clarity Cloudy Urine pH 5.0 Ur Specific [place] 1.010 Urine Protein 100 H Urine Glucose (UA) Normal Urine Ketones 5 H Urine Occult Blood 250 H Urine Nitrite Positive H Urine Bilirubin 3 H Urine Urobilinogen 8 H Ur Leukocyte Esterase 500 H Urine RBC 0-5 SEEN Urine WBC 10-25 SEEN Ur Squamous Epith Cells 10-25 SEEN Urine Bacteria 1+ Urine Mucus 0 SEEN Radiography Diagnostic Testing: Clinical Impression(s) from Imaging Studies Chest/Abdomen/Pelvis CT 04/05/23 12:42 IMPRESSION: 1. Left upper lobe lung mass obstructing the bronchus with postobstructive pneumonia/atelectasis. 2. New extensive metastatic liver disease. 3. Enlarged right adrenal gland and adenopathy along the hepatoduodenal ligament also suggestive of metastatic disease. 4. Small volume ascites. Electronically Signed: Daryl Squires MD at 14:34 EDT , Discharge Plan Triage Chief Complaint: Nausea/Vomiting/Diarrhea ED Provider: William Lepe Dx/Rx/DC Orders Instructions: ED Cystitis Female Adult Prescriptions: New cephalexin 500 mg capsule 500 mg PO Q12 Qty: 14 0RF ondansetron 4 mg tablet,disintegrating 4 mg PO Q8H PRN PRN (Reason: Nausea) Qty: 14 0RF No Action lisinopril-hydrochlorothiazide 10-12.5 mg tablet 1 tab PO BID glimepiride [Amaryl] 4 mg tablet 4 mg PO QAM fluticasone propionate [Allergy Relief (fluticasone)] 50 mcg/actuation spray,suspension 1 spray INTRANASAL DAILY escitalopram oxalate [Lexapro] 20 mg tablet 20 mg PO DAILY levothyroxine 175 mcg tablet 175 mcg PO SUMOTUWETHFR oxybutynin chloride 15 mg tablet extended release 24hr 15 mg PO DAILY atorvastatin 80 mg tablet 80 mg PO QHS albuterol sulfate [Proventil HFA] 90 mcg/actuation HFA aerosol inhaler 2 puff INHALATION Q4H PRN (Reason: SOB) lorazepam 0.5 mg tablet 0.5 mg PO BID PRN (Reason: Anxiety) metformin 500 mg tablet 500 mg PO DAILY Patient Comments: TAKE 1 TABLET BY MOUTH TWICE A DAY omeprazole 40 mg capsule,delayed release(DR/EC) 40 mg PO QHS Patient Comments: TAKE 1 CAPSULE BY MOUTH ONCE DAILY. AT BEDTIME. magnesium oxide 400 mg (241.3 mg magnesium) tablet 1 tab PO DAILY Patient Comments: TAKE 1 TABLET BY MOUTH TWICE A DAY promethazine 25 mg tablet 25 mg PO Q6H PRN PRN (Reason: Nausea) Patient Comments: TAKE 1 TABLET BY MOUTH EVERY 6 HOURS NEEDED. FOR NAUSEA oxycodone-acetaminophen 5-325 mg tablet 1 tab PO Q6H PRN (Reason: pain) 3 Days Qty: 15 0RF Primary Care Provider: Rosaura Carnes Referrals: Rosaura Carnes DO [Primary Care Provider] - Activity Restrictions/Additional Instructions: The CT scan performed today shows worsening metastasis involving the lungs and the liver. I discussed this with Dr. Garcia and he wants to have you come in the office tomorrow to make a plan going forward. He also urinary tract infection. I sent a prescription for Keflex and Zofran to your pharmacy. Disposition Disposition: Home, Self Care
--- NOTE | 2023-04-05 12:42 | CT_ITS ---
EXAM: CT CHEST, ABDOMEN AND PELVIS WITH INTRAVENOUS CONTRAST CLINICAL INDICATION: abdominal pain/ chest pain TECHNIQUE: Helically acquired images were obtained of the chest, abdomen and pelvis with intravenous contrast. This CT exam was performed using one or more of the following dose reduction techniques: automated exposure control, adjustment of the mA and/or kV according to patient size, and/or use of iterative reconstruction technique. CONTRAST: IV 100mL [id number]-300 COMPARISON: CTA chest 11/06/2021 FINDINGS: CHEST: LUNGS AND PLEURAL SPACES: Chronic atelectasis/postobstructive pneumonia involving the left upper lobe secondary to left upper lobe endobronchial lesion again noted. Small left pleural effusion which has decreased in size from prior exam. HEART: Normal. Heart size is normal. No pericardial effusion. MEDIASTINUM: Normal. No mediastinal or hilar adenopathy. Esophagus is unremarkable. No hiatal hernia. THYROID: Normal. No thyroid nodules or calcification. ABDOMEN: LIVER: Interval development of diffuse metastatic liver disease with greater than 50% tumor involvement of the overall liver volume. GALLBLADDER AND BILE DUCTS: Cholecystectomy clips are in place. PANCREAS: Normal. No focal cystic or solid mass. SPLEEN: Splenule again noted adjacent to the tail of the pancreas. ADRENALS: Persistent right adrenal mass measuring 3.5 cm in maximum diameter. KIDNEYS AND URETERS: Normal. Normal renal size and position. No hydronephrosis. STOMACH AND BOWEL: Periumbilical hernia noted containing small bowel loops as well as small portion of the transverse colon without obstruction. PELVIS: APPENDIX: The appendix is not identified. BLADDER: Urinary bladder is contracted. REPRODUCTIVE: Uterus is absent. CHEST, ABDOMEN and PELVIS: INTRAPERITONEAL SPACE: Minimal ascites within the right upper quadrant and pelvis. No free air. BONES/JOINTS: No suspicious lytic or blastic abnormality. SOFT TISSUES: See above. VASCULATURE: Normal. Aorta is non-dilated. No aortic dissection. No obvious central pulmonary embolism although this study was not performed with the pulmonary embolism protocol. LYMPH NODES: 2.3 cm lymph node noted along the hepatoduodenal ligament suggestive of metastatic lesion. TUBES, LINES AND DEVICES: Right IJ effusion catheter extends into the right atrium. CT/CT Chest, Abd, Pel w/Contrast IMPRESSION: 1. Left upper lobe lung mass obstructing the bronchus with postobstructive pneumonia/atelectasis. 2. New extensive metastatic liver disease. 3. Enlarged right adrenal gland and adenopathy along the hepatoduodenal ligament also suggestive of metastatic disease. 4. Small volume ascites. Electronically Signed: Daryl Squires MD at 14:34 EDT ,
[2023-04-05 13:07] LABS: Absolute Lymphocyte Count 0.34 X10^3/uL (0.83-4.51); Basophil# 0.03 X10^3/uL; Basophil% 0.2 % (0-1); Hematocrit 32.1 % (37-47); Hemoglobin 10.2 g/dL (12.0-15.0); Lymphocyte # 0.34 X10^3/ul (0.83-4.51); Lymphocyte % 2.7 % (19-41); Mean Corp Hgb Conc 31.8 g/dL (32-36); Mean Corpuscular Hgb 33.4 pg (27.0-32.0); Mean Corpuscular Volume 105.2 fL (81-99); Mean Platelet Vol. 11.9 fl (6.2-12.0); Monocyte# 1.21 X10^3/uL; Monocyte% 9.6 % (0-10); NRBC Flagged by Analyzer 1.7 % (0-5); Neutrophil # 11.01 X10^3/uL (2.7-7.7); POSITIVE COUNT YES; POSITIVE DIFFERENTIAL YES; POSITIVE MORPHOLOGY YES; Platelet Count 80 K/mm3 (150-450); RBC Distribution Width CV 22.2 % (11.6-14.6); RBC Distribution Width SD 82.3 fl (35.1-43.9); Red Blood Count 3.05 M/mm3 (4.2-5.4); White Blood Count 12.7 K/mm3 (4.4-11.0)
[2023-04-05] MEDS: 0.9% Normal Saline 1,000 ML 1000 ML IV (13:10)
[2023-04-05] MEDS: Ondansetron 4 MG/2 ML Vial IV (13:11)
[2023-04-05 13:13] LABS: Differential Indicated SCAN CRITERIA MET
[2023-04-05 13:17] VITALS: BMI 50.0
[2023-04-05 13:18] LABS: AST(SGOT) 274 U/L (15-37); Alanine Aminotransfer ALT/SGPT 141 U/L (13-56); Albumin, Serum 2.4 g/dL (3.2-5.0); Alkaline Phosphatase 539 U/L (45-117); Anion Gap 9 (5-15); BUN 18 mg/dL (7-18); BUN/Creat Ratio 18.1 RATIO (10-20); Calcium,Total 9.3 mg/dL (8.5-10.1); Chloride 102 mmol/L (98-107); Creatinine, Serum 0.99 mg/dL (0.55-1.02); EST Glomerular Filtration Rate 59 mL/min (>60); Est Glom Filt Rate - Afr Amer 71 mL/min (>60); Estimated Creatinine Clearance 38.52 ml/min; Globulin 3.6 g/dL (2.2-4.2); Glucose 140 mg/dL (74-106); Lipase 17 U/L (13-75); Potassium 4.7 mmol/L (3.5-5.1); Sodium Level 140 mmol/L (136-145)
[2023-04-05 13:33] LABS: Anisocytosis 2+; Differential Comment SCANNED; Macrocytosis 1+
[2023-04-05 13:37] LABS: Polychromasia 1+; Target Cells RARE
[2023-04-05 14:49] VITALS: BP 142/56; PULSE 102; RESP 18; TEMP 36.6; O2SAT 94
[2023-04-05 14:55] LABS: Mucous, Urine 0 SEEN /hpf (<or=2+)
[2023-04-05 14:59] LABS: Color, Urine Yellow (Yellow); Glucose, Dipstick Normal (Normal); Ketone-Dipstick 5 mg/dl (Negative); Leukocyte Esterase-Dipstick 500 /ul (Negative); Nitrite-Dipstick Positive (Negative); Occult Blood-Urine 250 /ul (Negative); Protein-Dipstick 100 mg/dl (Negative); Urine Clarity Cloudy (Clear); Urine Urobilinogen 8 mg/dl (Normal)
[2023-04-05 15:01] LABS: Urine Bilirubin Dipstick 3 mg/dL (Negative)
[2023-04-05 15:08] LABS: Squamous Epithelial Cells - UA 10-25 SEEN /hpf (5-10); White Blood Cells 10-25 SEEN /hpf (0-5)
[2023-04-05 15:09] LABS: Bacteria 1+ /hpf (None Seen); Red Blood Cells-Urine 0-5 SEEN /hpf (0-5)
[2023-04-05] MEDS: Cephalexin 250 MG Capsule 500 MG PO (16:08)
[2023-04-05 16:10] VITALS: BP 143/61; PULSE 94; RESP 18; O2SAT 92
== END 2023-04-05 16:46 | disposition home or self-care (01) ==
PROVIDERS: Emergency Provider Student in an Organized Health Care Education/Training Program; PCP Internal Medicine; Visit Provider Student in an Organized Health Care Education/Training Program
DX: N39.0 Urinary tract infection, site not specified (principal); C78.7 Secondary malignant neoplasm of liver and intrahepatic bile duct; C34.12 Malignant neoplasm of upper lobe, left bronchus or lung; E11.9 Type 2 diabetes mellitus without complications; E78.00 Pure hypercholesterolemia, unspecified; I10 Essential (primary) hypertension; Z99.81 Dependence on supplemental oxygen; Z79.84 Long term (current) use of oral hypoglycemic drugs; Z79.891 Long term (current) use of opiate analgesic; Z79.899 Other long term (current) drug therapy; Z86.73 Personal history of transient ischemic attack (TIA), and cerebral infarction without residual deficits; Z87.891 Personal history of nicotine dependence
CPT/HCPCS: 36591; 71260; 74177; 80048; 80076; 81001; 83690; 85025; 96361; 96374; 99281; 99283; J7030; Q9967; A4216; J2405